=== PATIENT | female | born 1945 | race Caucasian/White ===

== ENCOUNTER 2018-06-12 07:06 | Emergency (ER) | payer MEDICARE, OTHER ==
[2018-06-12 07:18] VITALS: BP 186/52
--- NOTE | 2018-06-12 08:19 | RADIOLOGY REPORT (SQ) ---
EXAM DESCRIPTION: FOOT RIGHT COMPLETE COMPLETED DATE/TIME: 06/12/2018 7:54 am REASON FOR STUDY: pain fall injury pain, dorsal foot COMPARISON: None. NUMBER OF VIEWS: Three views. TECHNIQUE: AP, lateral and oblique radiographic images acquired of the right foot. LIMITATIONS: None. FINDINGS: MINERALIZATION: Normal. BONES: Acute fracture of the tarsal navicular bone is present, best shown on the oblique view with a break in the medial cortex. This is marked with an arrow on the oblique view of the foot. No other definite acute fractures are identified. JOINTS: Osteoarthritis with joint space narrowing and bony spurring at the 1st metatarsophalangeal lonny int. SOFT TISSUES: Diffuse dorsal foot soft tissue swelling. No radiopaque foreign body OTHER: No other significant finding. IMPRESSION: Acute nondisplaced fracture tarsal navicular bone medial edge. TECHNICAL DOCUMENTATION: JOB ID: [id number] [employer]- All Rights Reserved Reading location - IP/workstation name: [email or web address]
[2018-06-12] MEDS ORDERED: OXYCODONE HCL IR 5 MG TABLET PO ONE (08:26)
--- NOTE | 2018-06-12 08:28 | ER Document Report ---
ED Extremity Problem, Lower - General Chief Complaint: Ankle Injury Stated Complaint: FELL/FOOT INJURY Time Seen by Provider: 06/12/18 07:48 Mode of Arrival: Wheelchair Information source: Patient Notes: Patient is a 72-year-old female who presents to the ER today for right foot pain after she was stepping off of a stepladder last night landed hard" on her right foot thinking that she was closer to the floor than she was. Patient did not fall or hit her head. She states that the right foot started hurting a lot at first but then has worsened over the night. She admits to some swelling to the top of the right foot. She states that it hurts so badly she cannot really walk on the foot. TRAVEL OUTSIDE OF THE [place] IN LAST 30 DAYS: No - Related Data Allergies/Adverse Reactions: atenolol Allergy (Verified 06/12/18 07:14) Past Medical History - General Information source: Patient - Social History Smoking Status: Unknown if Ever Smoked Family History: Reviewed & Not Pertinent Patient has suicidal ideation: No Patient has homicidal ideation: No Renal/ Medical History: Denies: Hx Peritoneal Dialysis Review of Systems - Review of Systems Constitutional: No symptoms reported EENT: No symptoms reported Cardiovascular: No symptoms reported Respiratory: No symptoms reported Gastrointestinal: No symptoms reported Genitourinary: No symptoms reported Female Genitourinary: No symptoms reported Musculoskeletal: See HPI Skin: See HPI Hematologic/Lymphatic: No symptoms reported Neurological/Psychological: No symptoms reported Physical Exam - Vital signs Vitals: Temp Pulse Resp BP Pulse Ox 97.8 F 64 16 186/52 H 100 06/12/18 07:17 06/12/18 07:17 06/12/18 07:17 06/12/18 07:17 06/12/18 07:17 - Notes Notes: PHYSICAL EXAMINATION: GENERAL: Well-appearing and in no acute distress. HEAD: Atraumatic, normocephalic. EYES: Pupils equal round and reactive to light, extraocular movements intact, sclera anicteric, conjunctiva are normal. NECK: Normal range of motion, supple without lymphadenopathy LUNGS: CTAB and equal. No wheezes rales or rhonchi. HEART: Regular rate and rhythm without murmurs EXTREMITIES: Tender to dorsal right foot, edema noted to dorsal right foot, no obvious ecchymosis, no erythema, pain with ambulation, otherwise normal range of motion, no pitting edema. No cyanosis. NEUROLOGICAL: Cranial nerves grossly intact. Normal sensory/motor exams. PSYCH: Normal mood, normal affect. SKIN: Warm, Dry, normal turgor, no rashes or lesions noted Course - Re-evaluation Re-evalutation: 06/13/18 08:48 X-ray of the right foot reveals a tarsal navicular fracture, nondisplaced. Patient was placed in a short leg posterior splint and offered crutches. Patient has a walker at home and refused the crutches today stating that she would fall if she tried to use them. Patient given orthopedic follow-up. Patient also given something for pain. - Vital Signs Vital signs: Temp Pulse Resp BP Pulse Ox 97.8 F 64 16 186/52 H 100 06/12/18 07:17 06/12/18 07:17 06/12/18 07:17 06/12/18 07:17 06/12/18 07:17 Discharge - Discharge Clinical Impression: Navicular fracture, foot Qualifiers: Encounter type: initial encounter Fracture type: closed Fracture alignment: nondisplaced Laterality: right Qualified Code(s): S92.254A - Nondisplaced fracture of navicular [scaphoid] of right foot, initial encounter for closed fracture Condition: Stable Disposition: HOME, SELF-CARE Additional Instructions: Return immediately for any new or worsening symptoms. Follow up with orthopedic surgeon, call tomorrow to make followup appointment. Prescriptions: Oxycodone HCl 5 mg PO Q4 PRN #20 tablet PRN Reason: Referrals: ALMAS BAHENA MD [Primary Care Provider] - Follow up as needed RAZIA JOE MD [ACTIVE STAFF] - Follow up as needed
== END 2018-06-12 09:22 | disposition home or self-care (01) ==
LOC: ER 07:06
DX: S92.254A Nondisplaced fracture of navicular [scaphoid] of right foot, initial encounter for closed fracture (principal); X58.XXXA Exposure to other specified factors, initial encounter; Z88.8 Allergy status to other drugs, medicaments and biological substances
CPT/HCPCS: 99283; 73630; 29515; A9270

== ENCOUNTER → 2019-07-08 | Outpatient (CLI) | payer MEDICARE, OTHER ==
[2019-07-08 10:14] LABS: ANION GAP 10 (5-19); BLOOD UREA NITROGEN 30 mg/dL (7-20); CALCIUM 10.2 mg/dL (8.4-10.2); CARBON DIOXIDE 26 mmol/L (22-30); CHLORIDE 97 mmol/L (98-107); GLUCOSE 163 mg/dL (75-110); POTASSIUM 5.4 mmol/L (3.6-5.0)
== END ==
LOC: OD 08:49
PROVIDERS: ATTEND Physician Assistant Medical
DX: E87.1 Hypo-osmolality and hyponatremia (principal)
CPT/HCPCS: 36415; 80048

== ENCOUNTER → 2019-09-23 | Outpatient (CLI) | payer MEDICARE, OTHER ==
[2019-09-23 08:06] LABS: HEMATOCRIT 41.1 % (36.0-47.0); HEMOGLOBIN 14.1 g/dL (12.0-15.5); MEAN CORPUSCULAR HEMOGLOBIN 28.9 pg (27.0-33.4); MEAN CORPUSCULAR HGB CONC 34.3 g/dL (32.0-36.0); MEAN CORPUSCULAR VOLUME 84 fl (80-97); PLATELET COUNT 240 10^3/uL (150-450); RED BLOOD COUNT 4.89 10^6/uL (3.72-5.28); RED CELL DISTRIBUTION WIDTH 12.6 % (11.5-14.0); WHITE BLOOD COUNT 10.1 10^3/uL (4.0-10.5)
[2019-09-23 08:31] LABS: APPEARANCE,URINE CLEAR; BILIRUBIN,URINE NEGATIVE (NEGATIVE); COLOR,URINE YELLOW; GLUCOSE, URINE 50 mg/dL (NEGATIVE); KETONES,URINE NEGATIVE (NEGATIVE); LEUKOCYTE ESTERASE,URINE NEGATIVE (NEGATIVE); NITRITE,URINE NEGATIVE (NEGATIVE); PROTEIN,URINE >=500 mg/dL (NEGATIVE); URINE SPECIFIC GRAVITY 1.014; UROBILINOGEN,URINE NEGATIVE mg/dL (<2.0)
[2019-09-23 08:39] LABS: ANION GAP 12 (5-19); BLOOD UREA NITROGEN 38 mg/dL (7-20); CARBON DIOXIDE 25 mmol/L (22-30); CHLORIDE 101 mmol/L (98-107); GLUCOSE 117 mg/dL (75-110); POTASSIUM 4.7 mmol/L (3.6-5.0)
[2019-09-23 08:52] LABS: CALCIUM 12.1 mg/dL (8.4-10.2)
== END ==
LOC: OD 07:36
PROVIDERS: ATTEND Physician Assistant Medical
DX: I12.9 Hypertensive chronic kidney disease with stage 1 through stage 4 chronic kidney disease, or unspecified chronic kidney disease (principal); N18.3 Chronic kidney disease, stage 3 (moderate); E11.22 Type 2 diabetes mellitus with diabetic chronic kidney disease; R80.9 Proteinuria, unspecified; E83.52 Hypercalcemia
CPT/HCPCS: 36415; 80048; 81001; 83970; 84100; 85027

== ENCOUNTER → 2019-09-28 | Outpatient (CLI) | payer MEDICARE, OTHER | LOC: OD 13:39 | PROVIDERS: ATTEND Physician Assistant Medical | DX: E83.52 Hypercalcemia (principal) | CPT/HCPCS: 36415; 82310 ==

== ENCOUNTER 2020-08-18 20:53 | Inpatient (IN) | payer MEDICARE, OTHER ==
--- NOTE | 2020-08-18 21:37 | ER Document Report ---
ED General - General Chief Complaint: Fall Stated Complaint: FALL WITH GENERALIZED WEAKNESS Time Seen by Provider: 08/18/20 20:59 TRAVEL OUTSIDE OF THE [place] IN LAST 30 DAYS: No - HPI Notes: Patient is a 75-year-old female with a history of DMII, cardiac stents and hypertension who presents status post fall. Patient states she she fell as she was walking into her bedroom because her left leg became weak and gave out. She states that in the past she has had stiffness in her left knee on occasion but reports new onset of pain and weakness to her left leg. She states the pain starts at her left ankle and travels up. Patient denies hitting her head, loss of consciousness and denies any pain currently. Patient also complains of diffuse abdominal pain for the past 3 days. Patient saw her primary care provider 2 days ago and had flu, strep and COVID testing done. Flu and strep were negative, while COVID is still pending. She reports nausea, diarrhea, mild dysuria and shortness of breath, but denies fever, vomiting, chest pain, headache, nasal congestion, and sore throat. Patient is currently on Plavix for her cardiac stents. - Related Data Allergies/Adverse Reactions: atenolol Allergy (Verified 06/12/18 07:14) Past Medical History - General Information source: Patient - Social History Smoking Status: Unknown if Ever Smoked Family History: Reviewed & Not Pertinent Endocrine Medical History: Reports: Hx Diabetes Mellitus Type 2 Renal/ Medical History: Denies: Hx Peritoneal Dialysis Review of Systems - Review of Systems Constitutional: No symptoms reported EENT: No symptoms reported Cardiovascular: No symptoms reported Respiratory: See HPI Gastrointestinal: See HPI Genitourinary: No symptoms reported Female Genitourinary: No symptoms reported Musculoskeletal: See HPI Skin: No symptoms reported Hematologic/Lymphatic: No symptoms reported Neurological/Psychological: See HPI Physical Exam - Vital signs Vitals: Temp 99.2 F 08/18/20 20:54 - Notes Notes: PHYSICAL EXAMINATION: VITALS: Vitals reviewed and within normal limits. GENERAL: Well-appearing, well-nourished and in no acute distress. HEAD: Atraumatic, normocephalic. EYES: Pupils equal round and reactive to light, extraocular movements intact, sclera anicteric, conjunctiva are normal. ENT: nares patent, oropharynx clear without exudates. Moist mucous membranes. NECK: Normal range of motion, supple without lymphadenopathy. LUNGS: Breath sounds clear to auscultation bilaterally and equal. No wheezes rales or rhonchi. HEART: Regular rate and rhythm without murmurs. ABDOMEN: Soft, nontender, normoactive bowel sounds. No guarding, no rebound. No masses appreciated. Mild right CVA tenderness. EXTREMITIES: Normal range of motion, no pitting or edema. No cyanosis. 5/5 strength in bilateral lower extremities. Sensation intact. No tenderness to any joints in the upper and lower extremities. NEUROLOGICAL: No focal neurological deficits. Moves all extremities spontaneously and on command. PSYCH: Normal mood, normal affect. SKIN: Warm, Dry, normal turgor, no rashes or lesions noted. Course - Re-evaluation Re-evalutation: Patient is a 75 y/o female with a hx of DM II and cardiac stents on plavix who presents s/p fall. Patient states her left leg gave out which caused her to fall. Patient denies any head injury or loss of consciousness. Patient also reports diffuse abdominal pain, nausea and diarrhea. She is pending COVID test results. Vital signs within normal limits. On exam, head is atraumatic, nonlabored breath sounds and no abdominal tenderness. 5/5 strength and sensation intact in bilateral lower extremities. WBC on CBC elevated at 16.9 with mild bandemia. Cr elevated at 2.93. UA shows significantly elevated protein and glucose with moderate blood and large leukocyte esterase. WBCs >182 with WBC clumps seen. CT abdomen/pelvis shows perinephric stranding bilaterally. Initial troponin elevated at 0.060 but no change with repeat troponin 3 hours later. High suspicion for bilateral pylonephritis, patient given a dose of rocephin and started on continuous IV fluids. Discussed the results with patient and based on her presentation and workup, I recommend admission. Patient agrees. 08/19/20 03:50 I discussed the patient with Dr. Mehta, hospitalist. He agrees to accept the patient and she will be admitted inpatient to telemetry. - Vital Signs Vital signs: Temp Pulse Resp BP Pulse Ox 98.3 F 20 165/52 H 97 08/19/20 06:27 08/19/20 07:01 08/19/20 07:01 08/19/20 07:01 - Laboratory Result Diagrams: 08/18/20 21:40 08/18/20 21:40 Laboratory results interpreted by me: 08/18/20 08/18/20 08/19/20 21:40 21:40 00:48 WBC 16.9 H RDW 14.2 H Seg Neuts % (Manual) 82 H Band Neutrophils % 1 L Lymphocytes % (Manual) 5 L Abs Neuts (Manual) 14.0 H Abs Monocytes (Manual) 1.7 H Sodium 132.4 L Carbon Dioxide 21 L BUN 49 H Creatinine 2.93 H Est GFR ( Amer) 19 L Est GFR (MDRD) Non-Af 16 L Glucose 310 H Direct Bilirubin 0.6 H Total Protein 6.2 L Albumin 3.2 L Urine Protein >=500 H Urine Glucose (UA) >=500 H Urine Blood MODERATE H Ur Leukocyte Esterase LARGE H - EKG Interpretation by Me Additional EKG results interpreted by me: Sinus rhythm with a rate of 78. QTc 433. Normal axis. No T wave inversions of ST segment changes in consecutive leads. Discharge - Discharge Clinical Impression: Pyelonephritis, Generalized weakness Abdominal pain Qualifiers: Abdominal location: generalized Qualified Code(s): R10.84 - Generalized abdominal pain Fall Qualifiers: Encounter type: initial encounter Qualified Code(s): W19.XXXA - Unspecified fall, initial encounter Condition: Stable Disposition: ADMITTED INPATIENT Admitting Provider: Tyson (Hospitalist) Unit Admitted: Telemetry
[2020-08-18 22:12] LABS: HEMATOCRIT 36.9 % (36.0-47.0); HEMOGLOBIN 12.6 g/dL (12.0-15.5); MEAN CORPUSCULAR HEMOGLOBIN 28.7 pg (27.0-33.4); MEAN CORPUSCULAR HGB CONC 34.2 g/dL (32.0-36.0); MEAN CORPUSCULAR VOLUME 84 fl (80-97); PLATELET COUNT 228 10^3/uL (150-450); RED CELL DISTRIBUTION WIDTH 14.2 % (11.5-14.0); WHITE BLOOD COUNT 16.9 10^3/uL (4.0-10.5)
[2020-08-18 22:20] LABS: ALBUMIN 3.2 g/dL (3.5-5.0); ALKALINE PHOSPHATASE 81 U/L (38-126); ANION GAP 11 (5-19); ASPARTATE AMINO TRANSFERASE 23 U/L (14-36); BILIRUBIN,DIRECT 0.6 mg/dL (0.0-0.4); BLOOD UREA NITROGEN 49 mg/dL (7-20); CARBON DIOXIDE 21 mmol/L (22-30); CHLORIDE 100 mmol/L (98-107); GLUCOSE 310 mg/dL (75-110); POTASSIUM 4.2 mmol/L (3.6-5.0); TOTAL PROTEIN 6.2 g/dL (6.3-8.2)
[2020-08-18] MEDS ORDERED: NORMAL SALINE 1000 ML 1,000 ML IV ONE (22:33)
--- NOTE | 2020-08-18 22:36 | RADIOLOGY REPORT (SQ) ---
AP Portable chest: 08/18/2020 9:35 PM CDT History: 75-year old patient with dyspnea. Comparison: None available Findings: The cardiomediastinal silhouette is enlarged. No pneumothorax is seen. No acute airspace opacities are seen. No discrete pleural effusion is apparent. Atherosclerotic calcifications are seen at the aortic arch. Impression: No acute airspace opacities are seen. The cardiomediastinal silhouette is enlarged.
[2020-08-18 22:50] LABS: ABSOLUTE LYMPHOCYTES# (MANUAL) 1.2 10^3/uL (0.5-4.7); ABSOLUTE MONOCYTES # (MANUAL) 1.7 10^3/uL (0.1-1.4); ANISOCYTOSIS SLIGHT; BAND NEUTROPHILS % (MANUAL) 1 % (3-5); BASOPHILS % (MANUAL) 0 % (0-2); EOSINOPHILS % (MANUAL) 0 % (0-6); LYMPHOCYTES % (MANUAL) 5 % (13-45); MONOCYTES % (MANUAL) 10 % (3-13); PLATELET COMMENT ADEQUATE; SEGMENTED NEUTROPHILS % (MAN) 82 % (42-78); TOTAL CELLS COUNTED 100
[2020-08-19 01:17] LABS: APPEARANCE,URINE CLOUDY; BILIRUBIN,URINE NEGATIVE (NEGATIVE); COLOR,URINE YELLOW; GLUCOSE, URINE >=500 mg/dL (NEGATIVE); KETONES,URINE NEGATIVE (NEGATIVE); LEUKOCYTE ESTERASE,URINE LARGE (NEGATIVE); NITRITE,URINE NEGATIVE (NEGATIVE); PROTEIN,URINE >=500 mg/dL (NEGATIVE); UROBILINOGEN,URINE NEGATIVE mg/dL (<2.0)
[2020-08-19] MEDS ORDERED: CEFTRIAXONE 1 GM/D5W RTU 1 GM/50 ML RTUPB IV ONE (01:31)
--- NOTE | 2020-08-19 02:00 | RADIOLOGY REPORT (SQ) ---
CT abdomen and pelvis without contrast on 08/19/2020 at 1:38 AM CLINICAL INDICATION: Generalized abdominal pain TECHNIQUE: Multiple axial images are obtained throughout the abdomen and pelvis without the administration of contrast. This exam was performed according to our departmental dose-optimization program, which includes automated exposure control, adjustment of the mA and/or kV according to patient size and/or use of iterative reconstruction technique. Total DLP is 641.81 mGy*cm. COMPARISON: None FINDINGS: Abdomen: Coronary artery calcifications and other vascular calcifications are noted. There is mild bibasilar atelectasis and/or scarring. Tiny calcification in the right kidney could be vascular but cannot exclude a tiny nonobstructing right renal stone. There are no ureteral stones and no hydronephrosis. Nonspecific bilateral perinephric stranding is likely incidental but consider correlation with urinalysis to exclude infection. The patient may be status post a partial left hepatic resection and please correlate with surgical history. The patient appears to be status post cholecystectomy. The unenhanced solid abdominal organs are otherwise unremarkable. There is no abdominal adenopathy. There is no free fluid or free air within the abdomen. There is a tiny umbilical hernia containing only fat. The abdominal portion of the GI tract is unremarkable. Pelvis: The patient is status post hysterectomy. No free fluid is noted in the pelvis. There is no pelvic adenopathy. The appendix is not definitely visualized but no pericecal inflammatory changes are noted. Pelvic portion of the GI tract is unremarkable. Degenerative changes are noted in the spine. There is minimal grade 1 spondylolisthesis at L3-4 and L4-5 secondary to degenerative facet disease. No acute bony normality is noted. IMPRESSION: 1. Nonspecific bilateral perinephric stranding likely incidental but consider correlation with urinalysis to exclude infection. 2. Otherwise essentially unremarkable unenhanced exam.
[2020-08-19] MEDS: NORMAL SALINE 1000 ML 1,000 ML IV PRN ×2 (04:20→20:15)
[2020-08-19] MEDS ORDERED: ASPIRIN 81 MG TABLET, CHEWABLE PO ONE (05:45)
[2020-08-19] MEDS ORDERED: MAGNESIUM HYDROXIDE SUSP 30 ML UDCUP PO PRN (05:50)
[2020-08-19] MEDS ORDERED: TEMAZEPAM 7.5 MG CAPSULE PO PRN (05:50)
[2020-08-19] MEDS ORDERED: ENOXAPARIN SODIUM INJ 80 MG/0.8 ML DISP.SYRIN SUBCUT ONE (06:00)
--- NOTE | 2020-08-19 06:00 | PDOC H&P ---
History of Present Illness Admission Date/PCP: 08/19/20 04:02 KERRI BURRIS PA-C History of Present Illness: JAEL ALVARES is a 75 year old female past medical history of CAD status post kevin nt placement, diabetes, hypertension, tenting to ED complaining of generalized weakness, nausea, diarrhea, dysuria, abdominal pain, back pain, patient also stating that because of her weakness legs gave out and ultimately fell, denies any loss of consciousness or head trauma, patient was seen by her PCP about 2 days ago, was tested for COVID and strep, and was discharged home. Patient was noted to have leukocytosis with UA positive for leukocyte esterase and CT abdomen positive for bilateral stranding of the kidneys likely pyelonephritis. Patient denies any chest pain, shortness of breath, fever, chills, palpitation, lightheadedness. Hospital was consulted for admission. Past Medical History Endocrine Medical History: Reports: Diabetes Mellitus Type 2 Social History Smoking Status: Unknown if Ever Smoked Electronic Cigarette use?: No Family History Family History: Reviewed & Not Pertinent Parental Family History Reviewed: Yes Children Family History Reviewed: Yes Sibling(s) Family History Reviewed.: Yes Medication/Allergy Home Medications: Oxycodone HCl 5 mg PO Q4 PRN #20 tablet 06/12/18 Allergies/Adverse Reactions: atenolol Allergy (Verified 06/12/18 07:14) Review of Systems Review of Systems: as per hpi Physical Exam Vital Signs: Temp Pulse Resp BP Pulse Ox 97.9 F 22 H 158/48 H 96 08/19/20 02:01 08/19/20 03:01 08/19/20 03:01 08/19/20 03:01 Intake & Output 08/17/20 08/18/20 08/19/20 06:59 06:59 06:59 Intake Total 1050 Balance 1050 Weight 78.471 kg General appearance: PRESENT: mild distress, obese Head exam: PRESENT: atraumatic, normocephalic Respiratory exam: PRESENT: clear to auscultation [place]. ABSENT: rales, rhonchi, wheezes Cardiovascular exam: PRESENT: RRR, tachycardia. ABSENT: diastolic murmur, rubs, systolic murmur GI/Abdominal exam: PRESENT: normal bowel sounds, soft, tenderness - Bilateral CVA tenderness. ABSENT: distended, guarding, mass, organolmegaly, rebound Neurological exam: PRESENT: alert, awake, oriented to person, oriented to place, oriented to time, oriented to situation, CN II-XII grossly intact. ABSENT: motor sensory deficit Results Laboratory Results: 08/18/20 21:40 08/18/20 21:40 08/18/20 08/18/20 08/19/20 21:40 21:40 00:48 WBC 16.9 H RBC 4.40 Hgb 12.6 Hct 36.9 MCV 84 MCH 28.7 MCHC 34.2 RDW 14.2 H Plt Count 228 Seg Neutrophils % Not Reportable Sodium 132.4 L Potassium 4.2 Chloride 100 Carbon Dioxide 21 L Anion Gap 11 BUN 49 H Creatinine 2.93 H Est GFR ( Amer) 19 L Glucose 310 H Calcium 9.0 Total Bilirubin 1.0 AST 23 Alkaline Phosphatase 81 Total Protein 6.2 L Albumin 3.2 L Lipase 34.0 Urine Color YELLOW Urine Appearance CLOUDY Urine pH 5.0 Ur Specific Mcclave 1.010 Urine Protein >=500 H Urine Glucose (UA) >=500 H Urine Ketones NEGATIVE Urine Blood MODERATE H Urine Nitrite NEGATIVE Ur Leukocyte Esterase LARGE H Urine WBC (Auto) >182 Urine RBC (Auto) 2 08/18/20 08/19/20 21:40 00:48 Troponin I 0.060 0.060 Impressions: Abdomen/Pelvis CT 08/18/20 22:33 IMPRESSION: 1. Nonspecific bilateral perinephric stranding likely incidental but consider correlation with urinalysis to exclude infection. 2. Otherwise essentially unremarkable unenhanced exam. Assessment and Plan - Diagnosis (1) Pyelonephritis Is this a current diagnosis for this admission?: Yes Plan: Presented with leukocytosis, abdominal pain, bilateral CVA. Hematuria on UA. CT abdomen positive for bilateral fat stranding of the kidney suspicion for pyelonephritis. Denies any previous history of pyelonephritis, urogenital instrumentation, any urogenital anomalies, any nephrolithiasis. Empiric broad-spectrum IV antibiotics, urine culture, blood culture. Follow-up blood culture and urine culture. Adjust antibiotics guided by culture finding. (2) Diabetes Qualifiers: Diabetes mellitus type: type 2 Chronic kidney disease stage: stage 3 (moderate) Is this a current diagnosis for this admission?: Yes Plan: Diabetic diet, sliding scale insulin, basal insulin, prandial insulin, Accu- Chek, hypoglycemia protocol. Resume home meds upon discharge. Outpatient PCP follow-up. (3) Hypertension Is this a current diagnosis for this admission?: Yes Plan: Uncontrolled, clinically appears dry. Resume home meds, adjust meds as needed, PRN IV hydralazine. (4) COVID-19 Is this a current diagnosis for this admission?: Yes Plan: Patient does not have any suspicion for COVID however due to the fact that patient was having nausea and vomiting and generalized weakness patient PCP had tested her for COVID-19 2 days ago. Pending results. Admit IMC, droplet and contact precautions, therapeutic Lovenox, empiric IV antibiotics. (5) Fall Qualifiers: Encounter type: initial encounter Qualified Code(s): W19.XXXA - Unspecified fall, initial encounter Is this a current diagnosis for this admission?: Yes Plan: Mechanical fall, denies any loss of consciousness, palpitation, lightheadedness, or head trauma. Monitor for fall, supportive measures. PT consultation. (6) Elevated troponin Is this a current diagnosis for this admission?: Yes Plan: History of CAD status post stent placement. Denies any chest pain. Mildly elevated troponin, no acute EKG change. Likely due to demand mismatch in the setting of worsening renal function. Admit telemetry, DAPT, DINA, statins, trend troponins, PRN nitroglycerin, PRN morphine, consult cardiology. (7) CAD (coronary artery disease) Qualifiers: Coronary Disease-Associated Artery/Lesion type: [place] artery Is this a current diagnosis for this admission?: Yes Plan: Denies any anginal stress, mildly elevated troponins, status post stent placement. Resume home meds. Outpatient PCP and cardiology follow-up. - Time Time Spent with patient: 35 or more minutes Medications reviewed and adjusted accordingly: Yes Anticipated Discharge Disposition: Home, Self Care Anticipated Discharge Timeframe: within 72 hours
[2020-08-19] MEDS ORDERED: LISINOPRIL 5 MG TABLET PO SCH (10:00)
[2020-08-19] MEDS ORDERED: ENOXAPARIN SODIUM INJ 80 MG/0.8 ML DISP.SYRIN SUBCUT SCH (10:00)
[2020-08-19] MEDS: CLOPIDOGREL BISULFATE 75 MG TABLET PO SCH (10:45)
[2020-08-19] MEDS: ENOXAPARIN SODIUM INJ 80 MG/0.8 ML DISP.SYRIN SUBCUT SCH (10:45)
[2020-08-19] MEDS: DOCUSATE SODIUM 100 MG CAPSULE PO SCH ×2 (10:45→17:52)
[2020-08-19] MEDS: FAMOTIDINE INJ/PF 20 MG/2 ML SDV IV SCH (10:46)
[2020-08-19] MEDS: CEFEPIME 1 GM/D5W RTU 1 GM/50 ML RTUPB IV SCH ×2 (10:46→22:00)
[2020-08-19] MEDS: PROMETHAZINE HCL INJ 25 MG/1 ML VIAL IV PRN (14:14)
[2020-08-19] MEDS ORDERED: DEXTROSE 50%-WATER 25 GM/50 ML DISP.SYRIN IV PRN ×2 (17:15)
[2020-08-19] MEDS ORDERED: DEXTROSE 40% GEL 15 GM TUBE PO PRN ×2 (17:15)
[2020-08-19] MEDS ORDERED: GLUCAGON,HUMAN RECOMB 1 MG INJ IM PRN (17:15)
--- NOTE | 2020-08-19 17:43 | PDOC PROGRESS REPORT ---
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 Patient was seen on morning rounds. She is found resting in bed, comfortably, on room air. She reports fatigue, malaise, poor appetite, and continued urinary frequency with occasional dysuria. She denies fever, chills, chest pain, palpitations, dyspnea, abd pain, vomiting and diarrhea. She has no questions or concerns at this time. No concerns per nursing. Reason For Visit: PYELONEPHRITIS,NAUSEA,VOMITING,ELEVATED TROPS Physical Exam Vital Signs: Temp Pulse Resp BP Pulse Ox 98.4 F 87 16 152/46 H 97 08/19/20 12:16 08/19/20 14:00 08/19/20 12:16 08/19/20 12:16 08/19/20 12:16 Intake & Output 08/18/20 08/19/20 08/20/20 06:59 06:59 06:59 Intake Total 1050 50 Balance 1050 50 Weight 78.471 kg 78.2 kg General appearance: PRESENT: no acute distress, disheveled - acutely ill appearing, obese, well-developed, well-nourished Head exam: PRESENT: atraumatic, normocephalic Eye exam: PRESENT: conjunctiva pink, EOMI, PERRLA. ABSENT: scleral icterus Mouth exam: PRESENT: dry mucosa, tongue midline Respiratory exam: PRESENT: clear to auscultation [place]avan, symmetrical, unlabored. ABSENT: rales, rhonchi, wheezes Cardiovascular exam: PRESENT: RRR. ABSENT: diastolic murmur, rubs, systolic murmur Vascular exam: PRESENT: normal capillary refill GI/Abdominal exam: PRESENT: normal bowel sounds, soft. ABSENT: distended, guarding, mass, organolmegaly, rebound, tenderness Rectal exam: PRESENT: deferred Extremities exam: PRESENT: full ROM. ABSENT: calf tenderness, clubbing, pedal edema Neurological exam: PRESENT: alert, awake, oriented to person, oriented to place, oriented to time, oriented to situation, CN II-XII grossly intact. ABSENT: motor sensory deficit Psychiatric exam: PRESENT: appropriate affect, normal mood. ABSENT: homicidal i deation, suicidal ideation Skin exam: PRESENT: dry, intact, warm. ABSENT: cyanosis, rash Results Laboratory Results: 08/18/20 21:40 08/18/20 21:40 08/18/20 08/18/20 08/19/20 21:40 21:40 00:48 WBC 16.9 H RBC 4.40 Hgb 12.6 Hct 36.9 MCV 84 MCH 28.7 MCHC 34.2 RDW 14.2 H Plt Count 228 Seg Neutrophils % Not Reportable Sodium 132.4 L Potassium 4.2 Chloride 100 Carbon Dioxide 21 L Anion Gap 11 BUN 49 H Creatinine 2.93 H Est GFR ( Amer) 19 L Glucose 310 H Calcium 9.0 Total Bilirubin 1.0 AST 23 Alkaline Phosphatase 81 Total Protein 6.2 L Albumin 3.2 L Lipase 34.0 Urine Color YELLOW Urine Appearance CLOUDY Urine pH 5.0 Ur Specific [place] 1.010 Urine Protein >=500 H Urine Glucose (UA) >=500 H Urine Ketones NEGATIVE Urine Blood MODERATE H Urine Nitrite NEGATIVE Ur Leukocyte Esterase LARGE H Urine WBC (Auto) >182 Urine RBC (Auto) 2 08/18/20 08/19/20 08/19/20 21:40 00:48 06:15 Troponin I 0.060 0.060 0.039 Impressions: Abdomen/Pelvis CT 08/18/20 22:33 IMPRESSION: 1. Nonspecific bilateral perinephric stranding likely incidental but consider correlation with urinalysis to exclude infection. 2. Otherwise essentially unremarkable unenhanced exam. Assessment and Plan - Diagnosis (1) Pyelonephritis Is this a current diagnosis for this admission?: Yes Plan: Presented with leukocytosis, abdominal pain, bilateral CVA. Hematuria on UA. CT abdomen positive for bilateral fat stranding of the kidney suspicion for pyelonephritis. Denies any previous history of pyelonephritis, urogenital instrumentation, any urogenital anomalies, any nephrolithiasis. Blood cultures show E. coli Urine culture pending Empiric broad-spectrum IV antibiotics Adjust antibiotics guided by culture finding. (2) Bacteremia due to Escherichia coli Is this a current diagnosis for this admission?: Yes Plan: Preliminary blood culture shows E. Coli Urine Culture pending; patient admitted w/ Pyelonephritis as likely source Continue IV Cefepime. Repeat cultures in 48 hrs. (3) Suspected COVID-19 virus infection Is this a current diagnosis for this admission?: Yes Plan: Patient was tested at her PCPs office 2 days ago. Spoke with office staff; test results still pending. It is likely that her fatigue, malaise, and fever are related to development of UTI/pyelonephritis and not COVID. Appropriate isolation precautions pending test results. (4) Diabetes Qualifiers: Diabetes mellitus type: type 2 Chronic kidney disease stage: stage 3 (moderate) Is this a current diagnosis for this admission?: Yes Plan: We will check A1c with a.m. lab work. Resume 50% of patient's home dose Lantus; 40 units nightly. Patient is placed on a consistent carb diet. Accu-Cheks before meals and at bedtime with Humalog for sliding scale coverage. Hypoglycemia protocol in place. (5) Elevated troponin Is this a current diagnosis for this admission?: Yes Plan: History of CAD status post stent placement. Denies any chest pain. Mildly elevated troponin; trending down and no longer following. No acute EKG change. Admit telemetry, DAPT, DINA, statins Discussed with Dr. Chambers; likely due to demand mismatch in the setting of worsening renal function. Stable/appropriate to delay cardiac consultation at this time; will re-consult as needed. (6) Fall Qualifiers: Encounter type: initial encounter Qualified Code(s): W19.XXXA - Unspecified fall, initial encounter Is this a current diagnosis for this admission?: Yes Plan: Mechanical fall, denies any loss of consciousness, palpitation, lightheadedness, or head trauma. Monitor for fall, supportive measures. PT consultation. (7) Hypertension Is this a current diagnosis for this admission?: Yes Plan: Uncontrolled, clinically appears dry. Have resumed home regimen of amlodipine, telmisartan, and metoprolol. PRN IV hydralazine. (8) CAD (coronary artery disease) Qualifiers: Coronary Disease-Associated Artery/Lesion type: [place] artery Is this a current diagnosis for this admission?: Yes Plan: Denies any anginal stress, mildly elevated troponins, status post stent placement. Resume home meds. Outpatient PCP and cardiology follow-up. - Time Time Spent with patient: 25-34 minutes Medications reviewed and adjusted accordingly: Yes Anticipated Discharge Disposition: Home, Self Care Anticipated Discharge Timeframe: >72 hrs
[2020-08-19] MEDS: ACETAMINOPHEN 325 MG TABLET PO PRN (20:20)
--- NOTE | 2020-08-19 21:28 | EKG REPORT ---
SEVERITY:- NORMAL ECG - SINUS RHYTHM : Confirmed by: Niya Rod MD 19-Aug-2020 21:28:00
[2020-08-19] MEDS ORDERED: METOPROLOL TARTRATE 25 MG TABLET PO SCH (22:00)
[2020-08-19] MEDS ORDERED: (PENDING PHARMACY ID) (Simvastatin [Simvastatin] 20 MG) PO SCH (22:00)
[2020-08-19] MEDS: SIMVASTATIN 10 MG TABLET PO SCH (22:02)
[2020-08-19] MEDS: EZETIMIBE 10 MG TABLET PO SCH (22:02)
[2020-08-19] MEDS: ATORVASTATIN CALCIUM 40 MG TABLET PO SCH (22:03)
[2020-08-19] MEDS: INSULIN LISPRO 100 UNIT/ML 3 ML VIAL SUBCUT SCH (22:11)
[2020-08-20] MEDS: PROMETHAZINE HCL INJ 25 MG/1 ML VIAL IV PRN ×2 (00:48→08:40)
[2020-08-20 08:35] LABS: HEMATOCRIT 33.7 % (36.0-47.0); HEMOGLOBIN 11.6 g/dL (12.0-15.5); MEAN CORPUSCULAR HEMOGLOBIN 28.8 pg (27.0-33.4); MEAN CORPUSCULAR HGB CONC 34.3 g/dL (32.0-36.0); MEAN CORPUSCULAR VOLUME 84 fl (80-97); PLATELET COUNT 237 10^3/uL (150-450); RED BLOOD COUNT 4.02 10^6/uL (3.72-5.28); WHITE BLOOD COUNT 18.6 10^3/uL (4.0-10.5)
[2020-08-20] MEDS: INSULIN LISPRO 100 UNIT/ML 3 ML VIAL SUBCUT SCH ×4 (08:39→22:35)
[2020-08-20] MEDS: HYDRALAZINE HCL INJ/PF 20 MG/1 ML SDV IV PRN (08:41)
[2020-08-20 08:51] LABS: INTERNATIONAL RATION (INR) 1.07; PROTHROMBIN TIME 14.1 SEC (11.4-15.4)
[2020-08-20 08:56] LABS: ALBUMIN 2.7 g/dL (3.5-5.0); ALKALINE PHOSPHATASE 74 U/L (38-126); ANION GAP 9 (5-19); ASPARTATE AMINO TRANSFERASE 22 U/L (14-36); BILIRUBIN,DIRECT 0.4 mg/dL (0.0-0.4); BILIRUBIN,TOTAL 0.7 mg/dL (0.2-1.3); BLOOD UREA NITROGEN 46 mg/dL (7-20); CALCIUM 8.2 mg/dL (8.4-10.2); CARBON DIOXIDE 19 mmol/L (22-30); CHLORIDE 107 mmol/L (98-107); GLUCOSE 259 mg/dL (75-110); POTASSIUM 4.3 mmol/L (3.6-5.0); TOTAL PROTEIN 5.6 g/dL (6.3-8.2)
[2020-08-20] MEDS ORDERED: (PENDING PHARMACY ID) (Telmisartan [Telmisartan] 80 MG) PO SCH (10:00)
[2020-08-20] MEDS ORDERED: INSULIN GLARGINE,HUM.REC.ANLOG 1,000 UNIT/10 ML VIAL SUBCUT SCH (10:00)
[2020-08-20] MEDS ORDERED: LOSARTAN POTASSIUM 25 MG TABLET PO SCH (10:00)
[2020-08-20] MEDS ORDERED: [UNRECOGNIZED DRUG - OTHER] SQ SCH (10:00)
[2020-08-20] MEDS ORDERED: INSULIN DETEMIR 40 UNIT SQ SCH (10:00)
[2020-08-20] MEDS: IPRATROPIUM/ALBUTEROL 0.5-2.5 MG/3 ML AMPUL NEB PRN (10:19)
[2020-08-20] MEDS: ASPIRIN 81 MG TABLET, CHEWABLE PO SCH (11:04)
[2020-08-20] MEDS: CLOPIDOGREL BISULFATE 75 MG TABLET PO SCH (11:06)
[2020-08-20] MEDS: AMLODIPINE BESYLATE 10 MG TABLET PO SCH (11:06)
[2020-08-20] MEDS: DOCUSATE SODIUM 100 MG CAPSULE PO SCH ×2 (11:07→20:42)
[2020-08-20] MEDS: ENOXAPARIN SODIUM INJ 80 MG/0.8 ML DISP.SYRIN SUBCUT SCH (11:07)
[2020-08-20] MEDS: FAMOTIDINE INJ/PF 20 MG/2 ML SDV IV SCH (11:07)
[2020-08-20] MEDS: CEFEPIME 1 GM/D5W RTU 1 GM/50 ML RTUPB IV SCH (11:08)
[2020-08-20] MEDS: NORMAL SALINE 1000 ML 1,000 ML IV PRN (11:12)
--- NOTE | 2020-08-20 12:28 | PDOC PROGRESS REPORT ---
Subjective Progress Note for:: 08/20/20 Subjective:: JAEL ALVARES is a 75 year old female past medical history of CAD status post stent placement, diabetes, hypertension, who was admitted 08/19/20 for pyelonephritis. Patient was seen on morning rounds. She is found resting in bed, on room air. She reports subjective fever/chills, fatigue, malaise, poor appetite, and continued urinary frequency with occasional dysuria. Now with increased abdominal discomfort, nausea, and vomiting. She denies chest pain, palpitations, dyspnea, and diarrhea. She has no questions or concerns at this time; does appear acutely ill and worsened as compared to yesterday. No concerns per nursing. Reason For Visit: PYELONEPHRITIS,NAUSEA,VOMITING,ELEVATED TROPS Physical Exam Vital Signs: Temp Pulse Resp BP Pulse Ox 97.9 F 84 16 173/51 H 93 08/20/20 08:27 08/20/20 10:19 08/20/20 10:19 08/20/20 08:27 08/20/20 10:19 Intake & Output 08/19/20 08/20/20 08/21/20 06:59 06:59 06:59 Intake Total 1050 2100 Balance 1050 2100 Weight 78.471 kg 80.3 kg General appearance: PRESENT: no acute distress, cooperative, disheveled - acutely ill appearing, well-developed, well-nourished - overweight Head exam: PRESENT: atraumatic, normocephalic Eye exam: PRESENT: conjunctiva pink, EOMI, PERRLA. ABSENT: scleral icterus Mouth exam: PRESENT: moist, tongue midline Respiratory exam: PRESENT: clear to auscultation [place], symmetrical, unlabored, other - room air. ABSENT: rales, rhonchi, wheezes Cardiovascular exam: PRESENT: RRR. ABSENT: diastolic murmur, rubs, systolic murmur Vascular exam: PRESENT: normal capillary refill GI/Abdominal exam: PRESENT: normal bowel sounds, soft, tenderness - vague, generalized. ABSENT: distended, guarding, mass, organolmegaly, rebound Rectal exam: PRESENT: deferred Extremities exam: PRESENT: full ROM. ABSENT: calf tenderness, clubbing, pedal edema Neurological exam: PRESENT: alert, awake, oriented to person, oriented to place, oriented to time, oriented to situation, CN II-XII grossly intact. ABSENT: motor sensory deficit Psychiatric exam: PRESENT: appropriate affect, normal mood. ABSENT: homicidal ideation, suicidal ideation Skin exam: PRESENT: dry, intact, warm. ABSENT: cyanosis, rash Results Laboratory Results: 08/20/20 07:30 08/20/20 07:30 08/20/20 08/20/20 07:30 07:30 WBC 18.6 H RBC 4.02 Hgb 11.6 L Hct 33.7 L MCV 84 MCH 28.8 MCHC 34.3 RDW 14.0 Plt Count 237 Sodium 134.8 L Potassium 4.3 Chloride 107 Carbon Dioxide 19 L Anion Gap 9 BUN 46 H Creatinine 2.07 H Est GFR ( Amer) 28 L Glucose 259 H Calcium 8.2 L Magnesium 2.1 Total Bilirubin 0.7 AST 22 Alkaline Phosphatase 74 Total Protein 5.6 L Albumin 2.7 L 08/19/20 02:35 Blood Blood Culture (PCR) - Final Escherichia Coli 08/18/20 08/19/20 08/19/20 21:40 00:48 06:15 Troponin I 0.060 0.060 0.039 08/19/20 08/20/20 17:45 00:58 Troponin I 0.036 0.030 Impressions: Abdomen/Pelvis CT 08/18/20 22:33 IMPRESSION: 1. Nonspecific bilateral perinephric stranding likely incidental but consider correlation with urinalysis to exclude infection. 2. Otherwise essentially unremarkable unenhanced exam. Assessment and Plan - Diagnosis (1) Pyelonephritis Is this a current diagnosis for this admission?: Yes Plan: Presented with leukocytosis, abdominal pain, bilateral CVA. Hematuria on UA. CT abdomen positive for bilateral fat stranding of the kidney suspicion for pyelonephritis. Denies any previous history of pyelonephritis, urogenital instrumentation, any urogenital anomalies, any nephrolithiasis. Blood cultures show E. coli; sensitivity pending Urine culture shows gram negative rods No previous cultures for reference Given worsened clinical appearance and increased leukocytosis today, will escalate antibiotics. Received IV Cefepime x1 day. Start Meropenem Continue IV fluids Analgesics and antiemetics as needed. (2) Bacteremia due to Escherichia coli Is this a current diagnosis for this admission?: Yes Plan: Preliminary blood culture shows E. Coli Urine Culture gram negative rods. Repeat BCx in am. Start Meropenem as mentioned above. (3) Diabetes Qualifiers: Diabetes mellitus type: type 2 Chronic kidney disease stage: stage 3 (moderate) Is this a current diagnosis for this admission?: Yes Plan: We will check A1c with a.m. lab work. Increase to Lantus 60 units nightly. (Takes 70 units at home) Patient is placed on a consistent carb diet. Accu-Cheks before meals and at bedtime with Humalog for sliding scale coverage. Hypoglycemia protocol in place. (4) Hypertension Is this a current diagnosis for this admission?: Yes Plan: Intermittently elevated Continue home regimen of amlodipine, telmisartan Increase metoprolol today. PRN IV hydralazine. (5) Elevated troponin Is this a current diagnosis for this admission?: Yes Plan: History of CAD status post stent placement. Denies any chest pain. Mildly elevated troponin; trending down and no longer following. No acute EKG change. Admit telemetry, DAPT, DINA, statins Discussed with Dr. Chambers; likely due to demand mismatch in the setting of worsening renal function. Stable/appropriate to delay cardiac consultation at this time; will re-consult as needed. (6) Fall Qualifiers: Encounter type: initial encounter Qualified Code(s): W19.XXXA - Unspecified fall, initial encounter Is this a current diagnosis for this admission?: Yes Plan: Mechanical fall, denies any loss of consciousness, palpitation, lightheadedness, or head trauma. Monitor for fall, supportive measures. PT consultation. (7) CAD (coronary artery disease) Qualifiers: Coronary Disease-Associated Artery/Lesion type: [place] artery Is this a current diagnosis for this admission?: Yes Plan: Denies any anginal stress, mildly elevated troponins, status post stent placement. Resume home meds. Outpatient PCP and cardiology follow-up. (8) Suspected COVID-19 virus infection Is this a current diagnosis for this admission?: Yes Plan: RULED OUT COVID test is NEGATIVE. No suspicion for false negative; patient's symptoms clearly explained by pyelonephritis/bacteremia. (9) [id number]-hzmjymr kidney injury Qualifiers: Acute renal failure type: unspecified Chronic kidney disease stage: stage 4 (severe) Qualified Code(s): N17.9 - Acute kidney failure, unspecified; N18.4 - Chronic kidney disease, stage 4 (severe) Is this a current diagnosis for this admission?: Yes Plan: Acute worsening is significantly improved; likely at baseline. Likely prerenal r/t dehydration, acute infection, hypotension, sepsis. 08/2019: eGFR 24, CR 1.99 Admitted w/ eGFR 16 and Cr 2.93; now eGFR 23 and Cr 2.07 Received appropriate IVF resuscitation. Continue treatment of pyelonephritis as above. Avoid nephrotoxic medications as able. Follow chemistries. - Time Time Spent with patient: 25-34 minutes Medications reviewed and adjusted accordingly: Yes Anticipated Discharge Disposition: Home, Self Care Anticipated Discharge Timeframe: >72 hrs
[2020-08-20] MEDS: ONDANSETRON HCL INJ/PF 4 MG/2 ML SDV IV PRN (12:43)
[2020-08-20] MEDS: MEROPENEM 1 GM in NORMAL SALINE 50 ML IV SCH ×2 (15:05→21:53)
[2020-08-20] MEDS: EZETIMIBE 10 MG TABLET PO SCH (21:54)
[2020-08-20] MEDS: ATORVASTATIN CALCIUM 40 MG TABLET PO SCH (21:54)
[2020-08-20] MEDS: METOPROLOL TARTRATE 25 MG TABLET PO SCH (21:54)
[2020-08-20] MEDS: SIMVASTATIN 10 MG TABLET PO SCH (21:54)
[2020-08-20] MEDS: MORPHINE SULFATE 10 MG/ML INJ IV PRN (23:14)
[2020-08-21] MEDS: NORMAL SALINE 1000 ML 1,000 ML IV PRN ×2 (01:00→13:36)
[2020-08-21] MEDS: MEROPENEM 1 GM in NORMAL SALINE 50 ML IV SCH ×3 (05:21→22:14)
[2020-08-21 06:10] LABS: HEMATOCRIT 33.7 % (36.0-47.0); HEMOGLOBIN 11.6 g/dL (12.0-15.5); MEAN CORPUSCULAR HEMOGLOBIN 28.7 pg (27.0-33.4); MEAN CORPUSCULAR HGB CONC 34.5 g/dL (32.0-36.0); MEAN CORPUSCULAR VOLUME 83 fl (80-97); PLATELET COUNT 258 10^3/uL (150-450); RED BLOOD COUNT 4.05 10^6/uL (3.72-5.28); WHITE BLOOD COUNT 17.2 10^3/uL (4.0-10.5)
[2020-08-21 06:27] LABS: ANION GAP 11 (5-19); BLOOD UREA NITROGEN 36 mg/dL (7-20); CALCIUM 8.2 mg/dL (8.4-10.2); CARBON DIOXIDE 18 mmol/L (22-30); CHLORIDE 110 mmol/L (98-107); GLUCOSE 169 mg/dL (75-110); POTASSIUM 4.1 mmol/L (3.6-5.0)
[2020-08-21] MEDS: INSULIN LISPRO 100 UNIT/ML 3 ML VIAL SUBCUT SCH ×4 (08:35→22:16)
[2020-08-21] MEDS: METOPROLOL TARTRATE 25 MG TABLET PO SCH ×2 (09:17→22:15)
[2020-08-21] MEDS: DOCUSATE SODIUM 100 MG CAPSULE PO SCH ×2 (09:17→17:33)
[2020-08-21] MEDS: AMLODIPINE BESYLATE 10 MG TABLET PO SCH (09:18)
[2020-08-21] MEDS: FAMOTIDINE INJ/PF 20 MG/2 ML SDV IV SCH (09:18)
[2020-08-21] MEDS: ASPIRIN 81 MG TABLET, CHEWABLE PO SCH (09:18)
[2020-08-21] MEDS: ENOXAPARIN SODIUM INJ 80 MG/0.8 ML DISP.SYRIN SUBCUT SCH (09:19)
[2020-08-21] MEDS: CLOPIDOGREL BISULFATE 75 MG TABLET PO SCH (09:19)
[2020-08-21] MEDS: LOSARTAN POTASSIUM 50 MG TABLET PO SCH (09:19)
[2020-08-21] MEDS: IPRATROPIUM/ALBUTEROL 0.5-2.5 MG/3 ML AMPUL NEB PRN (09:23)
[2020-08-21] MEDS ORDERED: INSULIN GLARGINE,HUM.REC.ANLOG 1,000 UNIT/10 ML VIAL (PYX) SUBCUT ONE (11:16)
[2020-08-21] MEDS: INSULIN GLARGINE,HUM.REC.ANLOG 1,000 UNIT/10 ML VIAL SUBCUT SCH (11:19)
[2020-08-21] MEDS: HYDRALAZINE HCL INJ/PF 20 MG/1 ML SDV IV PRN (16:21)
--- NOTE | 2020-08-21 17:05 | PDOC PROGRESS REPORT ---
Subjective Progress Note for:: 08/21/20 Subjective:: JAEL ALVARES is a 75 year old female past medical history of CAD status post stent placement, diabetes, hypertension, who was admitted 08/19/20 for pyelonephritis. Patient was seen on morning rounds. She is found sitting up to the recliner, comfortably, on room air. She reports feeling much better today. She reports continued fatigue, poor appetite, and mild nausea, though without the body aches, CVA tenderness, or vomiting she experienced yesterday. She denies fevers, chest pain, palpitations, dyspnea, abdominal pain, and diarrhea. She has no questions or concerns at this time. No concerns per nursing. Reason For Visit: PYELONEPHRITIS,NAUSEA,VOMITING,ELEVATED TROPS Physical Exam Vital Signs: Temp Pulse Resp BP Pulse Ox 98.3 F 66 19 157/45 H 93 08/21/20 16:00 08/21/20 16:00 08/21/20 16:00 08/21/20 16:00 08/21/20 16:00 Intake & Output 08/20/20 08/21/20 08/22/20 06:59 06:59 06:59 Intake Total 2099 1900 185 Balance 2099 1899 1855 Weight 80.3 kg 81.5 kg General appearance: PRESENT: no acute distress, well-developed, well-nourished Head exam: PRESENT: atraumatic, normocephalic Eye exam: PRESENT: conjunctiva pink, EOMI, PERRLA. ABSENT: scleral icterus Mouth exam: PRESENT: moist, tongue midline Respiratory exam: PRESENT: clear to auscultation [place], symmetrical, unlabored. ABSENT: rales, rhonchi, wheezes Cardiovascular exam: PRESENT: RRR, +S1, +S2. ABSENT: diastolic murmur, rubs, systolic murmur Vascular exam: PRESENT: normal capillary refill GI/Abdominal exam: PRESENT: normal bowel sounds, soft. ABSENT: distended, guarding, mass, organolmegaly, rebound, tenderness Rectal exam: PRESENT: deferred Extremities exam: PRESENT: full ROM. ABSENT: calf tenderness, clubbing, pedal edema Musculoskeletal exam: PRESENT: ambulatory Neurological exam: PRESENT: alert, awake, oriented to person, oriented to place, oriented to time, oriented to situation, CN II-XII grossly intact. ABSENT: motor sensory deficit Psychiatric exam: PRESENT: appropriate affect, normal mood. ABSENT: homicidal ideation, suicidal ideation Skin exam: PRESENT: dry, intact, warm. ABSENT: cyanosis, rash Results Laboratory Results: 08/21/20 05:49 08/21/20 05:49 08/21/20 08/21/20 05:49 05:49 WBC 17.2 H RBC 4.05 Hgb 11.6 L Hct 33.7 L MCV 83 MCH 28.7 MCHC 34.5 RDW 14.0 Plt Count 258 Sodium 139.0 Potassium 4.1 Chloride 110 H Carbon Dioxide 18 L Anion Gap 11 BUN 36 H Creatinine 1.84 H Est GFR ( Amer) 32 L Glucose 169 H Calcium 8.2 L 08/19/20 00:48 Clean Catch Midstream Urine Culture - Final Escherichia Coli 08/19/20 02:35 Blood Blood Culture (PCR) - Final Escherichia Coli 08/19/20 02:35 Blood Blood Culture - Final Escherichia Coli 08/18/20 08/19/20 08/19/20 21:40 00:48 06:15 Troponin I 0.060 0.060 0.039 08/19/20 08/20/20 17:45 00:58 Troponin I 0.036 0.030 Impressions: Abdomen/Pelvis CT 08/18/20 22:33 IMPRESSION: 1. Nonspecific bilateral perinephric stranding likely incidental but consider correlation with urinalysis to exclude infection. 2. Otherwise essentially unremarkable unenhanced exam. Assessment and Plan - Diagnosis (1) Pyelonephritis Is this a current diagnosis for this admission?: Yes Plan: Presented with leukocytosis, abdominal pain, bilateral CVA. Hematuria on UA. CT abdomen positive for bilateral fat stranding of the kidney suspicion for pyelonephritis. Denies any previous history of pyelonephritis, urogenital instrumentation, any urogenital anomalies, any nephrolithiasis. Blood cultures show pansensitive E. coli Urine culture show pansensitive E. coli Received IV Cefepime x1 day; changed to Meropenem due to persistent leukocytosis and acutely ill appearance. Meropenem x 1 day. Will await repeat culture results and then return to cefepime if no other organisms; likely tomorrow. Continue IV fluids Analgesics and antiemetics as needed. (2) Bacteremia due to Escherichia coli Is this a current diagnosis for this admission?: Yes Plan: Cultures and antibiotics as above. (3) Diabetes Qualifiers: Diabetes mellitus type: type 2 Chronic kidney disease stage: stage 3 (moderate) Is this a current diagnosis for this admission?: Yes Plan: A1C 7.8% Continue to Lantus 60 units nightly. Patient is placed on a consistent carb diet. Accu-Cheks before meals and at bedtime with Humalog for sliding scale coverage. Hypoglycemia protocol in place. (4) Hypertension Is this a current diagnosis for this admission?: Yes Plan: Intermittently elevated Continue home regimen of amlodipine, telmisartan Continue metoprolol 50 mg q12 PRN IV hydralazine. (5) Elevated troponin Is this a current diagnosis for this admission?: Yes Plan: History of CAD status post stent placement. Denies any chest pain. Mildly elevated troponin; trending down and no longer following. No acute EKG change. Admit telemetry, DAPT, DINA, statins Discussed with Dr. Chambers; likely due to demand mismatch in the setting of worsen ing renal function. Stable/appropriate to delay cardiac consultation at this time; will re-consult a s needed. (6) Fall Qualifiers: Encounter type: initial encounter Qualified Code(s): W19.XXXA - Unspecified fall, initial encounter Is this a current diagnosis for this admission?: Yes Plan: Mechanical fall, denies any loss of consciousness, palpitation, lightheadedness, or head trauma. Monitor for fall, supportive measures. PT consultation. (7) CAD (coronary artery disease) Qualifiers: Coronary Disease-Associated Artery/Lesion type: [place] artery Is this a current diagnosis for this admission?: Yes Plan: Denies any anginal stress, mildly elevated troponins, status post stent placement. Resume home meds. Outpatient PCP and cardiology follow-up. (8) Suspected COVID-19 virus infection Is this a current diagnosis for this admission?: Yes Plan: RULED OUT COVID test is NEGATIVE. No suspicion for false negative; patient's symptoms clearly explained by pyelonephritis/bacteremia. (9) Vwjqr-xz-hwjeibs kidney injury Qualifiers: Acute renal failure type: unspecified Chronic kidney disease stage: stage 4 (severe) Qualified Code(s): N17.9 - Acute kidney failure, unspecified; N18.4 - Chronic kidney disease, stage 4 (severe) Is this a current diagnosis for this admission?: Yes Plan: Resolved. Likely prerenal r/t dehydration, acute infection, hypotension, sepsis. 08/2019: eGFR 24, CR 1.99 Admitted w/ eGFR 16 and Cr 2.93; now eGFR 27 and Cr 1.78 Received appropriate IVF resuscitation. Continue treatment of pyelonephritis as above. Avoid nephrotoxic medications as able. Follow chemistries. - Time Time Spent with patient: 25-34 minutes Medications reviewed and adjusted accordingly: Yes Anticipated Discharge Disposition: Home, Self Care Anticipated Discharge Timeframe: >72 hrs r/t bacteremia
[2020-08-21] MEDS: MORPHINE SULFATE 10 MG/ML INJ IV PRN (20:11)
[2020-08-21] MEDS: PROMETHAZINE HCL INJ 25 MG/1 ML VIAL IV PRN (22:14)
[2020-08-21] MEDS: EZETIMIBE 10 MG TABLET PO SCH (22:15)
[2020-08-21] MEDS: SIMVASTATIN 10 MG TABLET PO SCH (22:15)
[2020-08-21] MEDS: ATORVASTATIN CALCIUM 40 MG TABLET PO SCH (22:15)
[2020-08-22] MEDS: NORMAL SALINE 1000 ML 1,000 ML IV PRN ×2 (01:54→18:46)
[2020-08-22] MEDS: MEROPENEM 1 GM in NORMAL SALINE 50 ML IV SCH ×2 (05:32→14:44)
[2020-08-22 06:14] LABS: HEMATOCRIT 32.3 % (36.0-47.0); MEAN CORPUSCULAR HEMOGLOBIN 28.6 pg (27.0-33.4); MEAN CORPUSCULAR VOLUME 84 fl (80-97); PLATELET COUNT 277 10^3/uL (150-450); RED BLOOD COUNT 3.85 10^6/uL (3.72-5.28); RED CELL DISTRIBUTION WIDTH 14.4 % (11.5-14.0); WHITE BLOOD COUNT 13.5 10^3/uL (4.0-10.5)
[2020-08-22] MEDS: ONDANSETRON HCL INJ/PF 4 MG/2 ML SDV IV PRN ×2 (07:56→16:35)
[2020-08-22] MEDS: ACETAMINOPHEN 325 MG TABLET PO PRN ×2 (07:56→23:32)
[2020-08-22] MEDS: INSULIN LISPRO 100 UNIT/ML 3 ML VIAL SUBCUT SCH ×4 (08:12→22:45)
[2020-08-22] MEDS: INSULIN GLARGINE,HUM.REC.ANLOG 1,000 UNIT/10 ML VIAL SUBCUT SCH (09:35)
[2020-08-22] MEDS: FAMOTIDINE INJ/PF 20 MG/2 ML SDV IV SCH (09:35)
[2020-08-22] MEDS: ENOXAPARIN SODIUM INJ 80 MG/0.8 ML DISP.SYRIN SUBCUT SCH (09:35)
[2020-08-22] MEDS: METOPROLOL TARTRATE 25 MG TABLET PO SCH ×2 (09:36→22:13)
[2020-08-22] MEDS: ASPIRIN 81 MG TABLET, CHEWABLE PO SCH (09:36)
[2020-08-22] MEDS: DOCUSATE SODIUM 100 MG CAPSULE PO SCH ×2 (09:36→17:44)
[2020-08-22] MEDS: LOSARTAN POTASSIUM 50 MG TABLET PO SCH (09:36)
[2020-08-22] MEDS: AMLODIPINE BESYLATE 10 MG TABLET PO SCH (09:36)
[2020-08-22] MEDS: CLOPIDOGREL BISULFATE 75 MG TABLET PO SCH (09:36)
[2020-08-22 11:52] LABS: APPEARANCE,URINE SLIGHTLY-CLOUDY; BILIRUBIN,URINE NEGATIVE (NEGATIVE); COLOR,URINE YELLOW; GLUCOSE, URINE >=500 mg/dL (NEGATIVE); KETONES,URINE TRACE mg/dL (NEGATIVE); LEUKOCYTE ESTERASE,URINE TRACE (NEGATIVE); NITRITE,URINE NEGATIVE (NEGATIVE); PROTEIN,URINE >=500 mg/dL (NEGATIVE); URINE SPECIFIC GRAVITY 1.013
--- NOTE | 2020-08-22 14:29 | RADIOLOGY REPORT (SQ) ---
EXAM DESCRIPTION: CT ABD/PELVIS ORAL ONLY IMAGES COMPLETED DATE/TIME: 08/22/2020 1:19 pm REASON FOR STUDY: LLQ abdominal pain, n/v COMPARISON: CT of the abdomen pelvis without contrast from 08/19/2020. TECHNIQUE: CT scan of the abdomen and pelvis performed without intravenous or oral contrast. Images reviewed with lung, soft tissue, and bone windows. Reconstructed coronal and sagittal MPR images revi ewed. All images stored on PACS. All CT scanners at this facility use dose modulation, iterative reconstruction, and/or weight based d osing when appropriate to reduce radiation dose to as low as reasonably achievable (ALARA). [facility]: Dose Right [facility]: CareDose [facility]: Dose Right [facility]: Teradose 4D [facility]: [employer] RADIATION DOSE: CT Rad equipment meets quality standard of care and radiation dose reduction techniq ues were employed. CTDIvol: 13.4 mGy. DLP: 697 mGy-cm. LIMITATIONS: None. FINDINGS: LOWER CHEST: Atherosclerotic calcification of the coronary arteries and trace left pleural effusion. NON-CONTRASTED LIVER, SPLEEN, ADRENALS: Evaluation is limited due to the absence of intravenous contr ast. The left hepatic lobe is atrophic or surgically absent. The attenuation of the hepatic parenchy mal equals 42 Hounsfield units. The spleen is normal in size. There is no adrenal mass. PANCREAS: No acute gross abnormality of the pancreas. GALLBLADDER: The gallbladder surgically absent. RIGHT KIDNEY AND URETER: Evaluation is limited due to the absence of intravenous contrast. The mild stranding of the perinephric fat is unchanged. There is no hydronephrosis, nephrolithiasis, hydroure ter or ureterolithiasis. LEFT KIDNEY AND URETER: Evaluation is limited due to the absence of intravenous contrast. The mild s tranding of the perinephric fat is unchanged. There is no hydronephrosis, nephrolithiasis, hydrouret er or ureterolithiasis. AORTA AND RETROPERITONEUM: Atherosclerotic calcification of the abdominal aorta and iliac arteries. There is no retroperitoneal adenopathy, hemorrhage or mass. BOWEL AND PERITONEAL CAVITY: Colonic diverticulosis without diverticulitis. There is no bowel obstru ction, bowel wall thickening or pericolonic/ perienteric inflammation. There is no mesenteric adenop athy, free intraperitoneal fluid or mesenteric/ omental inflammation. APPENDIX: Unable to identify the appendix. There is no pericecal inflammation PELVIS, BLADDER, AND ABDOMINAL WALL:The uterus is surgically absent. There is no urinary bladder kirk culus. There is mild anasarca. BONES: Degenerative spondylosis and facet joint arthropathy of the lumbar spine. There is no fractur e or osseous lesion. OTHER: No other findings. IMPRESSION: 1. No acute intra-abdominal abnormality. 2. Colonic diverticulosis without diverticulitis. COMMENT: Quality ID # [id number]: Final reports with documentation of one or more dose reduction techniques (e.g., Automated exposure control, adjustment of the mA and/or kV according to patient size, use of iterative reconstruction technique) TECHNICAL DOCUMENTATION: JOB ID: [id number] 2010 [email or web address]- All Rights Reserved Reading location - IP/workstation name: [email or web address]
[2020-08-22] MEDS: MORPHINE SULFATE 10 MG/ML INJ IV PRN (17:43)
[2020-08-22] MEDS: IPRATROPIUM/ALBUTEROL 0.5-2.5 MG/3 ML AMPUL NEB PRN (18:07)
--- NOTE | 2020-08-22 18:08 | PDOC PROGRESS REPORT ---
Subjective Progress Note for:: 08/22/20 Subjective:: JAEL ALVARES is a 75 year old female past medical history of CAD status post stent placement, diabetes, hypertension, who was admitted 08/19/20 for pyelonephritis. Patient was seen on morning rounds. She is found sitting up to the recliner, comfortably, on room air. She reports increase LLQ abdominal discomfort w/ associated poor appetite, nausea, and vomiting. Reports she is not tolerating food but able to hold down liquids. Some CVA tenderness today. Continues to have fatigue and malaise, though slightly improved. She denies fevers, chest pain, palpitations, dyspnea, abdominal pain, and diarrhea. She has no questions or concerns at this time. No concerns per nursing. Reason For Visit: PYELONEPHRITIS,NAUSEA,VOMITING,ELEVATED TROPS Physical Exam Vital Signs: Temp Pulse Resp BP Pulse Ox 97.4 F 80 16 174/47 H 97 08/22/20 16:03 08/22/20 16:03 08/22/20 16:03 08/22/20 16:03 08/22/20 16:03 Intake & Output 08/21/20 08/22/20 08/23/20 06:59 06:59 06:59 Intake Total 1900 3681 260 Balance 1900 3681 260 Weight 81.5 kg 83.1 kg General appearance: PRESENT: no acute distress, cooperative, well-developed, well-nourished, other - acutely ill appearing Head exam: PRESENT: atraumatic, normocephalic Eye exam: PRESENT: conjunctiva pink, EOMI, PERRLA. ABSENT: scleral icterus Mouth exam: PRESENT: moist, tongue midline Respiratory exam: PRESENT: clear to auscultation [place], symmetrical, unlabored. ABSENT: rales, rhonchi, wheezes Cardiovascular exam: PRESENT: RRR. ABSENT: diastolic murmur, rubs, systolic murmur Vascular exam: PRESENT: normal capillary refill GI/Abdominal exam: PRESENT: normal bowel sounds, soft, tenderness - LLQ. ABSENT: distended, guarding, mass, organolmegaly, rebound Rectal exam: PRESENT: deferred Extremities exam: PRESENT: full ROM. ABSENT: calf tenderness, clubbing, pedal edema Musculoskeletal exam: PRESENT: ambulatory Neurological exam: PRESENT: alert, awake, oriented to person, oriented to place, oriented to time, oriented to situation, CN II-XII grossly intact. ABSENT: motor sensory deficit Psychiatric exam: PRESENT: appropriate affect, normal mood. ABSENT: homicidal ideation, suicidal ideation Skin exam: PRESENT: dry, intact, warm. ABSENT: cyanosis, rash Results Laboratory Results: 08/22/20 05:19 08/21/20 05:49 08/22/20 08/22/20 05:19 08:00 WBC 13.5 H RBC 3.85 Hgb 11.0 L Hct 32.3 L MCV 84 MCH 28.6 MCHC 34.0 RDW 14.4 H Plt Count 277 Urine Color YELLOW Urine Appearance SLIGHTLY-CLOUDY Urine pH 5.0 Ur Specific [place] 1.013 Urine Protein >=500 H Urine Glucose (UA) >=500 H Urine Ketones TRACE H Urine Blood MODERATE H Urine Nitrite NEGATIVE Ur Leukocyte Esterase TRACE H Urine WBC (Auto) 34 Urine RBC (Auto) 15 08/18/20 08/19/20 08/19/20 21:40 00:48 06:15 Troponin I 0.060 0.060 0.039 08/19/20 08/20/20 17:45 00:58 Troponin I 0.036 0.030 Impressions: Abdomen/Pelvis CT 08/22/20 00:00 IMPRESSION: 1. No acute intra-abdominal abnormality. 2. Colonic diverticulosis without diverticulitis. Assessment and Plan - Diagnosis (1) Pyelonephritis Is this a current diagnosis for this admission?: Yes Plan: Presented with leukocytosis, abdominal pain, bilateral CVA. Hematuria on UA. CT abdomen positive for bilateral fat stranding of the kidney suspicion for pyelonephritis. Denies any previous history of pyelonephritis, urogenital instrumentation, any urogenital anomalies, any nephrolithiasis. Blood cultures show pansensitive E. coli Urine culture show pansensitive E. coli Repeat blood cultures negative at 24 hours. Received IV Cefepime x1 day; changed to Meropenem due to persistent leukocytosis and acutely ill appearance. Meropenem x2 days. Will await repeat culture results and then return to cefepime if no other organisms; likely tomorrow. Continue IV fluids Analgesics and antiemetics as needed. (2) Bacteremia due to Escherichia coli Is this a current diagnosis for this admission?: Yes Plan: Blood culture (08/19/2020) pansensitive E. coli in 1 set Repeat blood cultures (08/21/2020) negative at 24 hours. Patient received cefepime x1 days. Was transitioned to meropenem due to persistent leukocytosis and toxic appea cielo. Meropenem x2 day. May consider de-escalating antibiotics if repeat cultures remain negative and patient continues to improve. (3) Diabetes Qualifiers: Diabetes mellitus type: type 2 Chronic kidney disease stage: stage 3 ( moderate) Is this a current diagnosis for this admission?: Yes Plan: A1C 7.8% Continue to Lantus 60 units nightly. Patient is placed on a consistent carb diet. Accu-Cheks before meals and at bedtime with Humalog for sliding scale coverage. Hypoglycemia protocol in place. (4) Hypertension Is this a current diagnosis for this admission?: Yes Plan: Intermittently elevated Continue home regimen of amlodipine, telmisartan Continue metoprolol 50 mg q12 PRN IV hydralazine. (5) Elevated troponin Is this a current diagnosis for this admission?: Yes Plan: History of CAD status post stent placement. Denies any chest pain. Mildly elevated troponin; trending down and no longer following. No acute EKG change. Admit telemetry, DAPT, DINA, statins Discussed with Dr. Chambers; likely due to demand mismatch in the setting of worsening renal function. Stable/appropriate to delay cardiac consultation at this time; will re-consult as needed. (6) Fall Qualifiers: Encounter type: initial encounter Qualified Code(s): W19.XXXA - Unspecified fall, initial encounter Is this a current diagnosis for this admission?: Yes Plan: Mechanical fall, denies any loss of consciousness, palpitation, lightheadedness, or head trauma. Monitor for fall, supportive measures. PT consultation. (7) CAD (coronary artery disease) Qualifiers: Coronary Disease-Associated Artery/Lesion type: [place] artery Is this a current diagnosis for this admission?: Yes Plan: Denies any anginal stress, mildly elevated troponins, status post stent placement. Resume home meds. Outpatient PCP and cardiology follow-up. (8) Suspected COVID-19 virus infection Is this a current diagnosis for this admission?: Yes Plan: RULED OUT COVID test is NEGATIVE. No suspicion for false negative; patient's symptoms clearly explained by pyelonephritis/bacteremia. (9) [id number] kidney injury Qualifiers: Acute renal failure type: unspecified Chronic kidney disease stage: stage 4 (severe) Qualified Code(s): N17.9 - Acute kidney failure, unspecified; N18.4 - Chronic kidney disease, stage 4 (severe) Is this a current diagnosis for this admission?: Yes Plan: Resolved. Likely prerenal r/t dehydration, acute infection, hypotension, sepsis. 08/2019: eGFR 24, CR 1.99 Admitted w/ eGFR 16 and Cr 2.93; now eGFR 27 and Cr 1.78 Received appropriate IVF resuscitation. Continue treatment of pyelonephritis as above. Avoid nephrotoxic medications as able. Follow chemistries. (10) Left lower quadrant abdominal pain Is this a current diagnosis for this admission?: Yes Plan: CT abdomen pelvis with oral contrast revealed diverticulosis without diverticulitis. No other acute findings. It is possible that her LLQ pain is related to pyelonephritis; she does have some left neck pain. Also possible the patient has undetected kidney stone. Cultures and antibiotics as above. Antiemetics and analgesics as needed. Encourage p.o. fluids; eat as tolerated. - Time Time Spent with patient: 35 or more minutes Medications reviewed and adjusted accordingly: Yes Anticipated Discharge Disposition: Home, Self Care Anticipated Discharge Timeframe: within 72 hours
[2020-08-22] MEDS: PROMETHAZINE HCL INJ 25 MG/1 ML VIAL IV PRN ×2 (18:45→23:32)
[2020-08-22] MEDS: SIMVASTATIN 10 MG TABLET PO SCH (22:13)
[2020-08-22] MEDS: ATORVASTATIN CALCIUM 40 MG TABLET PO SCH (22:13)
[2020-08-22] MEDS: EZETIMIBE 10 MG TABLET PO SCH (22:14)
[2020-08-23 05:02] LABS: HEMATOCRIT 31.6 % (36.0-47.0); MEAN CORPUSCULAR HEMOGLOBIN 28.8 pg (27.0-33.4); MEAN CORPUSCULAR HGB CONC 34.8 g/dL (32.0-36.0); MEAN CORPUSCULAR VOLUME 83 fl (80-97); PLATELET COUNT 299 10^3/uL (150-450); RED BLOOD COUNT 3.82 10^6/uL (3.72-5.28); RED CELL DISTRIBUTION WIDTH 14.5 % (11.5-14.0); WHITE BLOOD COUNT 13.3 10^3/uL (4.0-10.5)
[2020-08-23 05:17] LABS: ANION GAP 9 (5-19); BLOOD UREA NITROGEN 27 mg/dL (7-20); CALCIUM 7.5 mg/dL (8.4-10.2); CARBON DIOXIDE 18 mmol/L (22-30); CHLORIDE 112 mmol/L (98-107); POTASSIUM 3.5 mmol/L (3.6-5.0)
[2020-08-23 05:40] LABS: GLUCOSE 47 mg/dL (75-110)
[2020-08-23] MEDS ORDERED: MEROPENEM 1 GM in NORMAL SALINE 50 ML IV SCH (06:00)
[2020-08-23] MEDS: INSULIN LISPRO 100 UNIT/ML 3 ML VIAL SUBCUT SCH ×4 (08:00→22:00)
[2020-08-23] MEDS ORDERED: INSULIN GLARGINE,HUM.REC.ANLOG 1,000 UNIT/10 ML VIAL SUBCUT SCH (10:00)
[2020-08-23] MEDS ORDERED: INSULIN GLARGINE,HUM.REC.ANLOG 1,000 UNIT/10 ML VIAL (PYX) SUBCUT ONE (10:49)
[2020-08-23] MEDS: AMLODIPINE BESYLATE 10 MG TABLET PO SCH (10:52)
[2020-08-23] MEDS: CLOPIDOGREL BISULFATE 75 MG TABLET PO SCH (10:53)
[2020-08-23] MEDS: METOPROLOL TARTRATE 25 MG TABLET PO SCH ×2 (10:53→21:59)
[2020-08-23] MEDS: FAMOTIDINE INJ/PF 20 MG/2 ML SDV IV SCH (10:53)
[2020-08-23] MEDS: LOSARTAN POTASSIUM 50 MG TABLET PO SCH (10:53)
[2020-08-23] MEDS: DOCUSATE SODIUM 100 MG CAPSULE PO SCH ×2 (10:53→17:15)
[2020-08-23] MEDS: ASPIRIN 81 MG TABLET, CHEWABLE PO SCH (10:53)
[2020-08-23] MEDS: INSULIN GLARGINE,HUM.REC.ANLOG 1,000 UNIT/10 ML VIAL SUBCUT SCH (10:58)
[2020-08-23] MEDS: ENOXAPARIN SODIUM INJ 80 MG/0.8 ML DISP.SYRIN SUBCUT SCH (10:59)
[2020-08-23] MEDS: IPRATROPIUM/ALBUTEROL 0.5-2.5 MG/3 ML AMPUL NEB PRN (11:44)
[2020-08-23] MEDS: NORMAL SALINE 1000 ML 1,000 ML IV PRN (12:46)
[2020-08-23] MEDS ORDERED: RINGERS SOLUTION,LACTATED 1,000 ML IV PRN (15:20)
[2020-08-23] MEDS: ACETAMINOPHEN 325 MG TABLET PO PRN ×2 (15:22→21:58)
--- NOTE | 2020-08-23 15:24 | PDOC PROGRESS REPORT ---
Subjective Progress Note for:: 08/23/20 Subjective:: JAEL ALVARES is a 75 year old female past medical history of CAD status post stent placement, diabetes, hypertension, tenting to ED complaining of generalized weakness, nausea, diarrhea, dysuria, abdominal pain, back pain, patient also stating that because of her weakness legs gave out and ultimately fell, denies any loss of consciousness or head trauma, patient was seen by her PCP about 2 days ago, was tested for COVID and strep, and was discharged home. Patient was noted to have leukocytosis with UA positive for leukocyte esterase and CT abdomen positive for bilateral stranding of the kidneys likely pyelonephritis. Patient denies any chest pain, shortness of breath, fever, chills, palpitation, lightheadedness. Hospital was consulted for admission.CT abdomen positive for bilateral fat stranding of the kidney suspicion for pyelonephritis. Denies any previous history of pyelonephritis, urogenital instrumentation, any urogenital anomalies, any nephrolithiasis. 08/19/20. She was initially started on Cefepime. Blood and urine culture grew E.coli. Cefepime continued. Dr. Chambers consulted for elevated troponin. Per DR. Chambers likely from ongoing infection 08/20/20. Abx switched to meropenem as patient still experiencing symptoms and persistent leukocytosis 08/21/20. Meropenem continued. 08/22/20. repeat CT abdomen no acute intra-abdominal abnormality. Colonic diverticulosis without diverticulitis. No hydronephrosis, no nephrolithiasis. 08/23/20. The patient was seen and examined at bedside. Still with generalized weakness and poor appetite, although she has been afebrile, no nausea/vomiting. WBC count 13.3. Cultures reviewed. Repeat Blood culture no growth 08/21/20. Previous culture E Coli pansensitive. Patient still appears weak looking, she would be D4 of meropenem today Reason For Visit: PYELONEPHRITIS,NAUSEA,VOMITING,ELEVATED TROPS Physical Exam Vital Signs: Temp Pulse Resp BP Pulse Ox 98.1 F 72 20 160/72 H 94 08/23/20 10:00 08/23/20 11:45 08/23/20 11:45 08/23/20 08:47 08/23/20 11:45 Intake & Output 08/22/20 08/23/20 08/24/20 06:59 06:59 06:59 Intake Total 3681 1838 1033 Output Total 600 Balance 3681 1238 1033 Weight 83.1 kg 85.1 kg General appearance: PRESENT: no acute distress, cooperative, other - weak looking Eye exam: PRESENT: EOMI, PERRLA Mouth exam: PRESENT: moist Neck exam: PRESENT: full ROM Respiratory exam: PRESENT: clear to auscultation [place], symmetrical, unlabored. ABSENT: rales, retraction Cardiovascular exam: PRESENT: RRR, +S1, +S2 Pulses: PRESENT: +2 pedal pulses bilateral GI/Abdominal exam: PRESENT: normal bowel sounds, soft. ABSENT: rebound, tenderness Extremities exam: PRESENT: full ROM Musculoskeletal exam: PRESENT: full ROM Neurological exam: PRESENT: alert, awake, oriented to person, oriented to place, oriented to time, oriented to situation Psychiatric exam: PRESENT: normal mood Skin exam: PRESENT: normal color Results Laboratory Results: 08/23/20 04:48 08/23/20 04:48 08/23/20 08/23/20 04:48 04:48 WBC 13.3 H RBC 3.82 Hgb 11.0 L Hct 31.6 L MCV 83 MCH 28.8 MCHC 34.8 RDW 14.5 H Plt Count 299 Sodium 139.3 Potassium 3.5 L Chloride 112 H Carbon Dioxide 18 L Anion Gap 9 BUN 27 H Creatinine 1.43 H Est GFR ( Amer) 43 L Glucose 47 L Calcium 7.5 L 08/18/20 08/19/20 08/19/20 21:40 00:48 06:15 Troponin I 0.060 0.060 0.039 08/19/20 08/20/20 17:45 00:58 Troponin I 0.036 0.030 Impressions: Abdomen/Pelvis CT 08/22/20 00:00 IMPRESSION: 1. No acute intra-abdominal abnormality. 2. Colonic diverticulosis without diverticulitis. Assessment and Plan - Diagnosis (1) Pyelonephritis Is this a current diagnosis for this admission?: Yes Plan: Presented with leukocytosis, abdominal pain, bilateral CVA. Hematuria on UA. CT abdomen positive for bilateral fat stranding of the kidney suspicion for pyelonephritis. Denies any previous history of pyelonephritis, urogenital instrumentation, any urogenital anomalies, any nephrolithiasis. Blood cultures show pansensitive E. coli Urine culture show pansensitive E. coli Repeat blood cultures negative at 48 hours. Received IV Cefepime x1 day; changed to Meropenem due to persistent leukocytosis and acutely ill appearance. Meropenem D4. Dose increased to q8. Will keep meropenem for today and switch to oral tomorrow as she still looks quite ill. Continue IV fluids Analgesics and antiemetics as needed. (2) Bacteremia due to Escherichia coli Is this a current diagnosis for this admission?: Yes Plan: Blood culture (08/19/2020) pansensitive E. coli in 1 set Repeat blood cultures (08/21/2020) negative at 48 hours. Patient received cefepime x1 days. Was transitioned to meropenem due to persistent leukocytosis and toxic appearance. Meropenem D4 will de escalate tomorrow as she still appears ill. (3) Diabetes Qualifiers: Diabetes mellitus type: type 2 Chronic kidney disease stage: stage 3 (moderate) Is this a current diagnosis for this admission?: Yes Plan: A1C 7.8% Continue to Lantus 60 units nightly. Patient is placed on a consistent carb diet. Accu-Cheks before meals and at bedtime with Humalog for sliding scale coverage. Hypoglycemia protocol in place. (4) Hypertension Is this a current diagnosis for this admission?: Yes Plan: Intermittently elevated Continue home regimen of amlodipine, telmisartan Continue metoprolol 50 mg q12 PRN IV hydralazine. (5) Elevated troponin Is this a current diagnosis for this admission?: Yes Plan: History of CAD status post stent placement. Denies any chest pain. Mildly elevated troponin; trending down and no longer following. No acute EKG change. Admit telemetry, DAPT, DINA, statins Discussed with Dr. Chambers; likely due to demand mismatch in the setting of worsening renal function. Stable/appropriate to delay cardiac consultation at this time; will re-consult as needed. (6) CAD (coronary artery disease) Qualifiers: Coronary Disease-Associated Artery/Lesion type: [place] artery Is this a current diagnosis for this admission?: Yes Plan: Denies any anginal stress, mildly elevated troponins, status post stent placement. Resume home meds. Outpatient PCP and cardiology follow-up. (7) [id number] kidney injury Qualifiers: Acute renal failure type: unspecified Chronic kidney disease stage: stage 4 (severe) Qualified Code(s): N17.9 - Acute kidney failure, unspecified; N18.4 - Chronic kidney disease, stage 4 (severe) Is this a current diagnosis for this admission?: Yes Plan: Resolved. Likely prerenal r/t dehydration, acute infection, hypotension, sepsis. 08/2019: eGFR 24, CR 1.99 Admitted w/ eGFR 16 and Cr 2.93; now eGFR 27 and Cr 1.78 Received appropriate IVF resuscitation. Continue treatment of pyelonephritis as above. Avoid nephrotoxic medications as able. Follow chemistries. (8) Left lower quadrant abdominal pain Is this a current diagnosis for this admission?: Yes Plan: CT abdomen pelvis with oral contrast revealed diverticulosis without diverticulitis. No other acute findings. It is possible that her LLQ pain is related to pyelonephritis; she does have some left neck pain. Also possible the patient has undetected kidney stone. Cultures and antibiotics as above. Antiemetics and analgesics as needed. Encourage p.o. fluids; eat as tolerated. (9) Fall Qualifiers: Encounter type: initial encounter Qualified Code(s): W19.XXXA - Unspecified fall, initial encounter Is this a current diagnosis for this admission?: Yes Plan: Mechanical fall, denies any loss of consciousness, palpitation, lightheadedness, or head trauma. Monitor for fall, supportive measures. PT consultation. - Time Time Spent with patient: 15-24 minutes Anticipated Discharge Disposition: Home, Self Care Anticipated Discharge Timeframe: within 48 hours
[2020-08-23] MEDS: MEROPENEM 1 GM in NORMAL SALINE 50 ML IV SCH (17:20)
[2020-08-23] MEDS: EZETIMIBE 10 MG TABLET PO SCH (21:59)
[2020-08-23] MEDS: PROMETHAZINE HCL INJ 25 MG/1 ML VIAL IV PRN (21:59)
[2020-08-23] MEDS: ATORVASTATIN CALCIUM 40 MG TABLET PO SCH (21:59)
[2020-08-23] MEDS: SIMVASTATIN 10 MG TABLET PO SCH (22:00)
[2020-08-24] MEDS: MEROPENEM 1 GM in NORMAL SALINE 50 ML IV SCH (06:08)
[2020-08-24 06:11] LABS: HEMATOCRIT 34.8 % (36.0-47.0); HEMOGLOBIN 11.8 g/dL (12.0-15.5); MEAN CORPUSCULAR HEMOGLOBIN 28.1 pg (27.0-33.4); MEAN CORPUSCULAR VOLUME 83 fl (80-97); PLATELET COUNT 329 10^3/uL (150-450); RED BLOOD COUNT 4.21 10^6/uL (3.72-5.28); RED CELL DISTRIBUTION WIDTH 14.1 % (11.5-14.0); WHITE BLOOD COUNT 14.1 10^3/uL (4.0-10.5)
[2020-08-24] MEDS: ONDANSETRON HCL INJ/PF 4 MG/2 ML SDV IV PRN ×2 (07:50→23:17)
[2020-08-24] MEDS: INSULIN LISPRO 100 UNIT/ML 3 ML VIAL SUBCUT SCH ×4 (08:27→23:29)
[2020-08-24] MEDS: IPRATROPIUM/ALBUTEROL 0.5-2.5 MG/3 ML AMPUL NEB PRN (08:37)
[2020-08-24] MEDS: ENOXAPARIN SODIUM INJ 80 MG/0.8 ML DISP.SYRIN SUBCUT SCH (10:40)
[2020-08-24] MEDS: ASPIRIN 81 MG TABLET, CHEWABLE PO SCH (10:40)
[2020-08-24] MEDS: FAMOTIDINE INJ/PF 20 MG/2 ML SDV IV SCH (10:40)
[2020-08-24] MEDS: LOSARTAN POTASSIUM 50 MG TABLET PO SCH (10:41)
[2020-08-24] MEDS: METOPROLOL TARTRATE 25 MG TABLET PO SCH ×2 (10:41→23:13)
[2020-08-24] MEDS: AMLODIPINE BESYLATE 10 MG TABLET PO SCH (10:41)
[2020-08-24] MEDS: DOCUSATE SODIUM 100 MG CAPSULE PO SCH ×2 (10:42→18:14)
[2020-08-24] MEDS: CLOPIDOGREL BISULFATE 75 MG TABLET PO SCH (10:42)
[2020-08-24] MEDS: INSULIN GLARGINE,HUM.REC.ANLOG 1,000 UNIT/10 ML VIAL SUBCUT SCH (12:10)
[2020-08-24] MEDS: PROMETHAZINE HCL INJ 25 MG/1 ML VIAL IV PRN (12:10)
[2020-08-24 13:03] LABS: ALBUMIN 2.6 g/dL (3.5-5.0); ALKALINE PHOSPHATASE 91 U/L (38-126); ANION GAP 9 (5-19); ASPARTATE AMINO TRANSFERASE 30 U/L (14-36); BILIRUBIN,DIRECT 0.3 mg/dL (0.0-0.4); BILIRUBIN,TOTAL 0.5 mg/dL (0.2-1.3); BLOOD UREA NITROGEN 17 mg/dL (7-20); CALCIUM 8.2 mg/dL (8.4-10.2); CARBON DIOXIDE 19 mmol/L (22-30); CHLORIDE 111 mmol/L (98-107); POTASSIUM 3.5 mmol/L (3.6-5.0); TOTAL PROTEIN 5.9 g/dL (6.3-8.2)
[2020-08-24 13:13] LABS: GLUCOSE 56 mg/dL (75-110)
[2020-08-24] MEDS ORDERED: VANCOMYCIN HCL 0 MG in DEXTROSE 5%-WATER 250 ML IV NR (19:15)
--- NOTE | 2020-08-24 19:20 | PDOC PROGRESS REPORT ---
Subjective Progress Note for:: 08/24/20 Subjective:: JAEL ALVARES is a 75 year old female past medical history of CAD status post stent placement, diabetes, hypertension, tenting to ED complaining of generalized weakness, nausea, diarrhea, dysuria, abdominal pain, back pain, patient also stating that because of her weakness legs gave out and ultimately fell, denies any loss of consciousness or head trauma, patient was seen by her PCP about 2 days ago, was tested for COVID and strep, and was discharged home. Patient was noted to have leukocytosis with UA positive for leukocyte esterase and CT abdomen positive for bilateral stranding of the kidneys likely pyelonephritis. Patient denies any chest pain, shortness of breath, fever, chills, palpitation, lightheadedness. Hospital was consulted for admission.CT abdomen positive for bilateral fat stranding of the kidney suspicion for pyelonephritis. Denies any previous history of pyelonephritis, urogenital instrumentation, any urogenital anomalies, any nephrolithiasis. 08/19/20. She was initially started on Cefepime. Blood and urine culture grew E.coli. Cefepime continued. Dr. Chambers consulted for elevated troponin. Per DR. Chambers likely from ongoing infection 08/20/20. Abx switched to meropenem as patient still experiencing symptoms and persistent leukocytosis 08/21/20. Meropenem continued. 08/22/20. repeat CT abdomen no acute intra-abdominal abnormality. Colonic diverticulosis without diverticulitis. No hydronephrosis, no nephrolithiasis. 08/23/20. The patient was seen and examined at bedside. Still with generalized weakness and poor appetite, although she has been afebrile, no nausea/vomiting. WBC count 13.3. Cultures reviewed. Repeat Blood culture no growth 08/21/20. Previous culture E Coli pansensitive. Patient still appears weak looking, she would be D4 of meropenem today. 08/24/20. She was seen and examined at bedside. Still feels weak with nausea no vomiting. Afebrile. Blood cultures reviewed. WBC count went up slightly. I changed her back to cefepime since she failed to clinically improved with 2 days of meropenem. Id consulted for abx guidance with failure to improve on meropenem despite being sensitive to it on both blood and urine culture. Reason For Visit: PYELONEPHRITIS,NAUSEA,VOMITING,ELEVATED TROPS Physical Exam Vital Signs: Temp Pulse Resp BP Pulse Ox 97.6 F 68 24 H 177/49 H 93 08/24/20 17:06 08/24/20 17:06 08/24/20 17:06 08/24/20 17:06 08/24/20 17:06 Intake & Output 08/23/20 08/24/20 08/25/20 06:59 06:59 06:59 Intake Total 1838 2261 1050 Output Total 600 3 Balance 1238 2258 1050 Weight 85.1 kg 85.5 kg General appearance: PRESENT: no acute distress, cooperative Head exam: PRESENT: atraumatic, normocephalic Eye exam: PRESENT: EOMI Mouth exam: PRESENT: moist Neck exam: PRESENT: full ROM Respiratory exam: PRESENT: clear to auscultation [place], symmetrical, unlabored Cardiovascular exam: PRESENT: RRR, +S1, +S2 GI/Abdominal exam: PRESENT: normal bowel sounds, soft. ABSENT: rebound, tenderness Extremities exam: PRESENT: full ROM Musculoskeletal exam: PRESENT: full ROM Neurological exam: PRESENT: alert, awake, oriented to person, oriented to place, oriented to time, oriented to situation Psychiatric exam: PRESENT: normal mood Skin exam: PRESENT: normal color Results Laboratory Results: 08/24/20 05:47 08/24/20 05:47 08/24/20 08/24/20 05:47 05:47 WBC 14.1 H RBC 4.21 Hgb 11.8 L Hct 34.8 L MCV 83 MCH 28.1 MCHC 34.0 RDW 14.1 H Plt Count 329 Sodium 139.0 Potassium 3.5 L Chloride 111 H Carbon Dioxide 19 L Anion Gap 9 BUN 17 Creatinine 1.18 Est GFR ( Amer) 54 L Glucose 56 L Calcium 8.2 L Total Bilirubin 0.5 AST 30 Alkaline Phosphatase 91 Total Protein 5.9 L Albumin 2.6 L 08/19/20 03:20 Blood Blood Culture - Final NO GROWTH IN 5 DAYS 08/18/20 08/19/20 08/19/20 21:40 00:48 06:15 Troponin I 0.060 0.060 0.039 08/19/20 08/20/20 17:45 00:58 Troponin I 0.036 0.030 Impressions: Abdomen/Pelvis CT 08/22/20 00:00 IMPRESSION: 1. No acute intra-abdominal abnormality. 2. Colonic diverticulosis without diverticulitis. Assessment and Plan - Diagnosis (1) Pyelonephritis Is this a current diagnosis for this admission?: Yes Plan: Presented with leukocytosis, abdominal pain, bilateral CVA. Hematuria on UA. CT abdomen positive for bilateral fat stranding of the kidney suspicion for pyelonephritis. Denies any previous history of pyelonephritis, urogenital instrumentation, any urogenital anomalies, any nephrolithiasis. Blood cultures show pansensitive E. coli Urine culture show pansensitive E. coli Repeat blood cultures negative at 48 hours. Received IV Cefepime x1 day; changed to Meropenem due to persistent leukocytosis and acutely ill appearance. Meropenem D4 but she failed to clinically improve, WBC count increased today ID consulted. Switched her back to cefepime, added Vanc Continue IV fluids Analgesics and antiemetics as needed. (2) Bacteremia due to Escherichia coli Is this a current diagnosis for this admission?: Yes Plan: Blood culture (08/19/2020) pansensitive E. coli in 1 set Repeat blood cultures (08/21/2020) negative at 48 hours. Patient received cefepime x1 days. Was transitioned to meropenem due to persistent leukocytosis and toxic appearance. Meropenem D4, still failing to show clinical improvement switched back to cefepime, added vanc, repeat blood cx ID consulted (3) Diabetes Qualifiers: Diabetes mellitus type: type 2 Chronic kidney disease stage: stage 3 (moderate) Is this a current diagnosis for this admission?: Yes Plan: A1C 7.8% Continue to Lantus 60 units nightly. Patient is placed on a consistent carb diet. Accu-Cheks before meals and at bedtime with Humalog for sliding scale coverage. Hypoglycemia protocol in place. (4) Hypertension Is this a current diagnosis for this admission?: Yes Plan: Intermittently elevated Continue home regimen of amlodipine, telmisartan Continue metoprolol 50 mg q12 PRN IV hydralazine. (5) Elevated troponin Is this a current diagnosis for this admission?: Yes Plan: History of CAD status post stent placement. Denies any chest pain. Mildly elevated troponin; trending down and no longer following. No acute EKG change. Admit telemetry, DAPT, DINA, statins Discussed with Dr. Chambers; likely due to demand mismatch in the setting of worsening renal function. Stable/appropriate to delay cardiac consultation at this time; will re-consult as needed. (6) CAD (coronary artery disease) Qualifiers: Coronary Disease-Associated Artery/Lesion type: [place] artery Is this a current diagnosis for this admission?: Yes Plan: Denies any anginal stress, mildly elevated troponins, status post stent placement. Resume home meds. Outpatient PCP and cardiology follow-up. (7) [id number] kidney injury Qualifiers: Acute renal failure type: unspecified Chronic kidney disease stage: stage 4 (severe) Qualified Code(s): N17.9 - Acute kidney failure, unspecified; N18.4 - Chronic kidney disease, stage 4 (severe) Is this a current diagnosis for this admission?: Yes Plan: Resolved. Likely prerenal r/t dehydration, acute infection, hypotension, sepsis. 08/2019: eGFR 24, CR 1.99 Admitted w/ eGFR 16 and Cr 2.93; now eGFR 27 and Cr 1.78 Received appropriate IVF resuscitation. Continue treatment of pyelonephritis as above. Avoid nephrotoxic medications as able. Follow chemistries. (8) Left lower quadrant abdominal pain Is this a current diagnosis for this admission?: Yes Plan: CT abdomen pelvis with oral contrast revealed diverticulosis without diverticulitis. No other acute findings. It is possible that her LLQ pain is related to pyelonephritis; she does have some left neck pain. Also possible the patient has undetected kidney stone. Cultures and antibiotics as above. Antiemetics and analgesics as needed. Encourage p.o. fluids; eat as tolerated. (9) Fall Qualifiers: Encounter type: initial encounter Qualified Code(s): W19.XXXA - Unspecified fall, initial encounter Is this a current diagnosis for this admission?: Yes Plan: Mechanical fall, denies any loss of consciousness, palpitation, lightheadedness, or head trauma. Monitor for fall, supportive measures. PT consultation. - Time Time Spent with patient: 25-34 minutes Anticipated Discharge Disposition: Home, Self Care Anticipated Discharge Timeframe: to be determined
[2020-08-24] MEDS ORDERED: VANCOMYCIN HCL 1,250 MG in DEXTROSE 5%-WATER 250 ML IV SCH (20:00)
[2020-08-24] MEDS: MORPHINE SULFATE 10 MG/ML INJ IV PRN (20:27)
[2020-08-24] MEDS ORDERED: CEFEPIME 2 GM/D5W RTU 2 GM/50 ML RTUPB IV SCH (22:00)
--- NOTE | 2020-08-24 22:00 | Progress Note ---
Provider Note Provider Note: [facility] ID Telephone Advice Consultation Chart reviewed, patient not examined. This is [id number] woman with CAD s/p stent, hypertension, diabetes mellitus who was admitted on 08/19 due to dysuria, back pain, flank pain, nausea and vomiting. On admission she was found septic with a WBC 16-18k, acute kidney injury with a creatinine of 2.9. Blood glucose in 300s. Blood culture on 08/19 positive for E coli and urine culture as well. CT scan on 08/18 with bilateral perinephric stranding suggestive of pyelonephri tis. She was started on cefepime, later transitioned to meropenem due to increased WBC. She has been on antibiotics since 08/19, a repeat blood culture on 08/21 remains negative. A repeat CT scan of the abdomen and pelvis did not show hydronephrosis, perinephric stranding nor perinephric abscess. Leukocytosis slightly improved from admission, OSVALDO resolved. She continues on meropenem, vancomycin was added as some point. Her troponins were elevated, probably some demand ischemia. ID consulted for recommendatioon. Allergies: atenolol Allergy (Verified 06/12/18 07:14) Medications: Amlodipine Besylate [Norvasc 10 mg Tablet] 10 mg PO DAILY 08/19/20 Aspirin [Adult Low Dose Aspirin EC] 81 mg PO DAILY 08/19/20 Clopidogrel Bisulfate [Plavix 75 mg Tablet] 75 mg PO DAILY 08/19/20 Ezetimibe [Zetia 10 mg Tablet] 10 mg PO QHS 08/19/20 Gabapentin [Neurontin 300 mg Capsule] 300 mg PO QHS 08/19/20 Glipizide [Glipizide Xl] 5 mg PO DAILY 08/19/20 Insulin Aspart [Novolog Flexpen] 10 unit SQ QAM 08/19/20 Insulin Aspart [Novolog Flexpen] 12 unit SQ QPM 08/19/20 Insulin Detemir [Levemir Insulin 100 units/mL Insulin Pen] 70 unit SQ DAILY Metoprolol Tartrate [Lopressor 25 mg Tablet] 25 mg PO Q12 08/19/20 Nitroglycerin [Nitrostat 0.4 mg (1/150 Gr) Tabs 25/Bottle] 0.2 mg SL Q5MP PRN 08/19/20 Ondansetron [Zofran Odt 4 mg Tablet] 8 mg PO Q6HP PRN 08/19/20 Simvastatin 20 mg PO QHS 08/19/20 Sitagliptin Phosphate [Januvia 50 mg Tablet] 50 mg PO DAILY 08/19/20 Telmisartan 80 mg PO DAILY 08/19/20 Vital Signs: Temp Pulse Resp BP Pulse Ox 97.6 F 68 24 H 177/49 H 93 08/24/20 17:06 08/24/20 17:06 08/24/20 17:06 08/24/20 17:06 08/24/20 17:06 Intake & Output 08/23/20 08/24/20 08/25/20 06:59 06:59 06:59 Intake Total 1838 2261 1050 Output Total 600 3 Balance 1238 2258 1050 Weight 85.1 kg 85.5 kg Weight/Height Weight 85.5 kg Height 5 ft 5 in Laboratories: 08/24/20 05:47 08/24/20 05:47 MCV 83 fl (80-97) 08/24/20 05:47 MCH 28.1 pg (27.0-33.4) 08/24/20 05:47 MCHC 34.0 g/dL (32.0-36.0) 08/24/20 05:47 RDW 14.1 % (11.5-14.0) H 08/24/20 05:47 Seg Neutrophils % Not Reportable 08/18/20 21:40 Chloride 111 mmol/L (98-107) H 08/24/20 05:47 Carbon Dioxide 19 mmol/L (22-30) L 08/24/20 05:47 Anion Gap 9 (5-19) 08/24/20 05:47 Est GFR ( Amer) 54 (>60) L 08/24/20 05:47 Glucose 56 mg/dL (75-110) L 08/24/20 05:47 Lactic Acid 1.2 mmol/L (0.7-2.1) 08/24/20 20:28 Calcium 8.2 mg/dL (8.4-10.2) L 08/24/20 05:47 Magnesium 2.1 mg/dL (1.6-2.3) 08/20/20 07:30 Total Bilirubin 0.5 mg/dL (0.2-1.3) 08/24/20 05:47 AST 30 U/L (14-36) 08/24/20 05:47 Alkaline Phosphatase 91 U/L (38-126) 08/24/20 05:47 Total Protein 5.9 g/dL (6.3-8.2) L 08/24/20 05:47 Albumin 2.6 g/dL (3.5-5.0) L 08/24/20 05:47 Lipase 34.0 U/L (23-300) 08/18/20 21:40 Urine Color YELLOW 08/22/20 08:00 Urine Appearance SLIGHTLY-CLOUDY 08/22/20 08:00 Urine pH 5.0 (5.0-9.0) 08/22/20 08:00 Ur Specific [place] 1.013 08/22/20 08:00 Urine Protein >=500 mg/dL (NEGATIVE) H 08/22/20 08:00 Urine Glucose (UA) >=500 mg/dL (NEGATIVE) H 08/22/20 08:00 Urine Ketones TRACE mg/dL (NEGATIVE) H 08/22/20 08:00 Urine Blood MODERATE (NEGATIVE) H 08/22/20 08:00 Urine Nitrite NEGATIVE (NEGATIVE) 08/22/20 08:00 Ur Leukocyte Esterase TRACE (NEGATIVE) H 08/22/20 08:00 Urine WBC (Auto) 34 /HPF 08/22/20 08:00 Urine RBC (Auto) 15 /HPF 08/22/20 08:00 08/18/20 08/19/20 08/19/20 21:40 00:48 06:15 Troponin I 0.060 0.060 0.039 08/19/20 08/20/20 17:45 00:58 Troponin I 0.036 0.030 Microbiology: Blood cultures 08/19 E coli 08/21 NGTD Urine culture 08/19 E coli Radiology: Abdomen/Pelvis CT 08/22/20 00:00 IMPRESSION: 1. No acute intra-abdominal abnormality. 2. Colonic diverticulosis without diverticulitis. Assessment and Recommendations: Patient evaluated due to E coli bacteremia due to pyelonephritis in the setting of uncontrolled DM. Blood cultures have cleared, leukocytosis stable, acute kidney injury has resolved. New CT scan without signs of worsening perinephric stranding. Leukocytosis is likely multifactorial due to infection, demand ischemia. This will likely improve. She will need 14 days of antibiotic therapy for pyelonephritis. She has already received 5, therefore will need 9 more days of therapy. Can de escalate to ceftriaxone 2g iv daily. If ready to be discharged prior to completion of therapy, can transition to ciprofloxacin 500 mg bid to complete therapy. Please call if questions. Fifi Alvarado MD [facility] [phone]
[2020-08-24] MEDS: ATORVASTATIN CALCIUM 40 MG TABLET PO SCH (23:13)
[2020-08-24] MEDS: SIMVASTATIN 10 MG TABLET PO SCH (23:13)
[2020-08-24] MEDS: CEFEPIME HCL 2 GM in DEXTROSE 5%-WATER 50 ML IV SCH (23:14)
[2020-08-24] MEDS: EZETIMIBE 10 MG TABLET PO SCH (23:14)
[2020-08-25] MEDS: MORPHINE SULFATE 10 MG/ML INJ IV PRN (00:38)
[2020-08-25] MEDS: HYDRALAZINE HCL INJ/PF 20 MG/1 ML SDV IV PRN (00:44)
[2020-08-25] MEDS: PROMETHAZINE HCL INJ 25 MG/1 ML VIAL IV PRN ×3 (04:30→18:43)
[2020-08-25] MEDS: INSULIN LISPRO 100 UNIT/ML 3 ML VIAL SUBCUT SCH ×4 (08:30→22:54)
[2020-08-25] MEDS: ENOXAPARIN SODIUM INJ 80 MG/0.8 ML DISP.SYRIN SUBCUT SCH (11:01)
[2020-08-25] MEDS: FAMOTIDINE INJ/PF 20 MG/2 ML SDV IV SCH (11:02)
[2020-08-25] MEDS: CLOPIDOGREL BISULFATE 75 MG TABLET PO SCH (11:02)
[2020-08-25] MEDS: ASPIRIN 81 MG TABLET, CHEWABLE PO SCH (11:02)
[2020-08-25] MEDS: AMLODIPINE BESYLATE 10 MG TABLET PO SCH (11:03)
[2020-08-25] MEDS: LOSARTAN POTASSIUM 50 MG TABLET PO SCH (11:03)
[2020-08-25] MEDS: METOPROLOL TARTRATE 25 MG TABLET PO SCH ×2 (11:04→22:46)
[2020-08-25] MEDS: INSULIN GLARGINE,HUM.REC.ANLOG 1,000 UNIT/10 ML VIAL SUBCUT SCH (11:05)
[2020-08-25] MEDS: DOCUSATE SODIUM 100 MG CAPSULE PO SCH ×2 (12:10→17:12)
[2020-08-25] MEDS: CEFEPIME HCL 2 GM in DEXTROSE 5%-WATER 50 ML IV SCH ×2 (12:23→22:47)
[2020-08-25] MEDS ORDERED: RINGERS SOLUTION,LACTATED 1,000 ML IV PRN (14:51)
--- NOTE | 2020-08-25 14:58 | PDOC PROGRESS REPORT ---
Subjective Progress Note for:: 08/25/20 Subjective:: JAEL ALVARES is a 75 year old female past medical history of CAD status post stent placement, diabetes, hypertension, tenting to ED complaining of generalized weakness, nausea, diarrhea, dysuria, abdominal pain, back pain, patient also stating that because of her weakness legs gave out and ultimately fell, denies any loss of consciousness or head trauma, patient was seen by her PCP about 2 days ago, was tested for COVID and strep, and was discharged home. Patient was noted to have leukocytosis with UA positive for leukocyte esterase and CT abdomen positive for bilateral stranding of the kidneys likely pyelonephritis. Patient denies any chest pain, shortness of breath, fever, chills, palpitation, lightheadedness. Hospital was consulted for admission.CT abdomen positive for bilateral fat stranding of the kidney suspicion for pyelonephritis. Denies any previous history of pyelonephritis, urogenital instrumentation, any urogenital anomalies, any nephrolithiasis. 08/19/20. She was initially started on Cefepime. Blood and urine culture grew E.coli. Cefepime continued. Dr. Chambers consulted for elevated troponin. Per DR. Chambers likely from ongoing infection 08/20/20. Abx switched to meropenem as patient still experiencing symptoms and persistent leukocytosis 08/21/20. Meropenem continued. 08/22/20. repeat CT abdomen no acute intra-abdominal abnormality. Colonic diverticulosis without diverticulitis. No hydronephrosis, no nephrolithiasis. 08/23/20. The patient was seen and examined at bedside. Still with generalized weakness and poor appetite, although she has been afebrile, no nausea/vomiting. WBC count 13.3. Cultures reviewed. Repeat Blood culture no growth 08/21/20. Previous culture E Coli pansensitive. Patient still appears weak looking, she would be D4 of meropenem today. 08/24/20. She was seen and examined at bedside. Still feels weak with nausea no vomiting. Afebrile. Blood cultures reviewed. WBC count went up slightly. I changed her back to cefepime since she failed to clinically improved with 2 days of meropenem. Id consulted for abx guidance with failure to improve on meropenem despite being sensitive to it on both blood and urine culture. Reason For Visit: PYELONEPHRITIS,NAUSEA,VOMITING,ELEVATED TROPS Physical Exam Vital Signs: Temp Pulse Resp BP Pulse Ox 98.1 F 80 16 150/70 H 97 08/25/20 10:00 08/25/20 14:30 08/25/20 14:30 08/25/20 04:00 08/25/20 14:30 Intake & Output 08/24/20 08/25/20 08/26/20 06:59 06:59 06:59 Intake Total 2261 1170 Output Total 3 Balance 2258 1170 Weight 85.5 kg 85.3 kg General appearance: PRESENT: no acute distress, cooperative Head exam: PRESENT: atraumatic, normocephalic Eye exam: PRESENT: EOMI, PERRLA Mouth exam: PRESENT: moist Neck exam: PRESENT: full ROM Respiratory exam: PRESENT: clear to auscultation [place], symmetrical, unlabored, wheezes. ABSENT: rales Cardiovascular exam: PRESENT: RRR, +S1, +S2 Pulses: PRESENT: +2 pedal pulses bilateral GI/Abdominal exam: PRESENT: normal bowel sounds, soft. ABSENT: rebound, tender ness Extremities exam: PRESENT: full ROM Musculoskeletal exam: PRESENT: full ROM Neurological exam: PRESENT: alert, awake, oriented to person, oriented to place, oriented to time, oriented to situation Skin exam: PRESENT: normal color Results Laboratory Results: 08/24/20 05:47 08/24/20 05:47 08/24/20 20:28 Lactic Acid 1.2 08/24/20 20:28 Blood Blood Culture (PCR) - Final 08/18/20 08/19/20 08/19/20 21:40 00:48 06:15 Troponin I 0.060 0.060 0.039 08/19/20 08/20/20 17:45 00:58 Troponin I 0.036 0.030 Impressions: Abdomen/Pelvis CT 08/22/20 00:00 IMPRESSION: 1. No acute intra-abdominal abnormality. 2. Colonic diverticulosis without diverticulitis. Assessment and Plan - Diagnosis (1) Pyelonephritis Is this a current diagnosis for this admission?: Yes Plan: Presented with leukocytosis, abdominal pain, bilateral CVA. Hematuria on UA. CT abdomen positive for bilateral fat stranding of the kidney suspicion for pyelonephritis. Denies any previous history of pyelonephritis, urogenital instrumentation, any urogenital anomalies, any nephrolithiasis. Blood cultures 08/19 show pansensitive E. coli Urine culture show pansensitive E. coli Repeat blood cultures 08/21 negative at 48 hours. repeat blood culture 08/24 growing gram positive rods 1 bottle likely a contaminant Received IV Cefepime x1 day; changed to Meropenem due to persistent leukocytosis and acutely ill appearance. Meropenem D4 but she failed to clinically improve. I have ordered Flu test as well as this might cause her slow improvement and generalized malaise ID consulted. Recommend to de escalate to ceftriaxone. Switched her back to cefepime will de escalate tomorrow. Will stop Vanc Continue IV fluids Analgesics and antiemetics as needed. (2) Bacteremia due to Escherichia coli Is this a current diagnosis for this admission?: Yes Plan: Blood culture (08/19/2020) pansensitive E. coli in 1 set Repeat blood cultures (08/21/2020) negative at 48 hours. Blood cx 08/24 growing gram positive rods Patient received cefepime x1 days. Was transitioned to meropenem due to persistent leukocytosis and toxic appearance. Meropenem D4, still failing to show clinical improvement switched back to cefepime de escalate tomorrow stop vanc ID consulted (3) Diabetes Qualifiers: Diabetes mellitus type: type 2 Chronic kidney disease stage: stage 3 (moderate) Is this a current diagnosis for this admission?: Yes Plan: A1C 7.8% Continue to Lantus 60 units nightly. Patient is placed on a consistent carb diet. Accu-Cheks before meals and at bedtime with Humalog for sliding scale coverage. Hypoglycemia protocol in place. (4) Hypertension Is this a current diagnosis for this admission?: Yes Plan: Intermittently elevated Continue home regimen of amlodipine, telmisartan Continue metoprolol 50 mg q12 PRN IV hydralazine. (5) Elevated troponin Is this a current diagnosis for this admission?: Yes Plan: History of CAD status post stent placement. Denies any chest pain. Mildly elevated troponin; trending down and no longer following. No acute EKG change. Admit telemetry, DAPT, DINA, statins Discussed with Dr. Chambers; likely due to demand mismatch in the setting of worsening renal function. Stable/appropriate to delay cardiac consultation at this time; will re-consult as needed. (6) CAD (coronary artery disease) Qualifiers: Coronary Disease-Associated Artery/Lesion type: kaw artery Is this a current diagnosis for this admission?: Yes Plan: Denies any anginal stress, mildly elevated troponins, status post stent placement. Resume home meds. Outpatient PCP and cardiology follow-up. (7) [id number] kidney injury Qualifiers: Acute renal failure type: unspecified Chronic kidney disease stage: stage 4 (severe) Qualified Code(s): N17.9 - Acute kidney failure, unspecified; N18.4 - Chronic kidney disease, stage 4 (severe) Is this a current diagnosis for this admission?: Yes (8) Left lower quadrant abdominal pain Is this a current diagnosis for this admission?: Yes Plan: CT abdomen pelvis with oral contrast revealed diverticulosis without diverticulitis. No other acute findings. It is possible that her LLQ pain is related to pyelonephritis; she does have some left neck pain. Also possible the patient has undetected kidney stone. Cultures and antibiotics as above. Antiemetics and analgesics as needed. Encourage p.o. fluids; eat as tolerated. (9) Fall Qualifiers: Encounter type: initial encounter Qualified Code(s): W19.XXXA - Unspecified fall, initial encounter Is this a current diagnosis for this admission?: Yes Plan: Mechanical fall, denies any loss of consciousness, palpitation, lightheadedness, or head trauma. Monitor for fall, supportive measures. PT consultation. (10) Pain in left leg Is this a current diagnosis for this admission?: Yes Plan: - complaining of left leg pain - heating pads ordered - success for pain - US doppler ordered to rule out DVT - Time Time Spent with patient: 25-34 minutes Anticipated Discharge Disposition: Home, Self Care - to be determined Anticipated Discharge Timeframe: to be determined
--- NOTE | 2020-08-25 16:23 | RADIOLOGY REPORT (SQ) ---
EXAM DESCRIPTION: CHEST 2 VIEWS IMAGES COMPLETED DATE/TIME: 08/25/2020 4:03 pm REASON FOR STUDY: SOB COMPARISON: 08/18/2020 EXAM PARAMETERS: NUMBER OF VIEWS: two views TECHNIQUE: Digital Frontal and Lateral radiographic views of the chest acquired. RADIATION DOSE: NA LIMITATIONS: none FINDINGS: LUNGS AND PLEURA: Increased perihilar lung markings. Left lung base atelectasis. Small b ilateral pleural effusions. No pneumothorax. MEDIASTINUM AND HILAR STRUCTURES: No masses or contour abnormalities. HEART AND VASCULAR STRUCTURES: Mild cardiomegaly with central vascular congestion. BONES: No acute findings. HARDWARE: None in the chest. OTHER: No other significant finding. IMPRESSION: Constellation of findings suggests early CHF exacerbation. Infectious etiology is not e xcluded. TECHNICAL DOCUMENTATION: JOB ID: [id number] [employer]- All Rights Reserved Reading location - IP/workstation name: [email or web address]
[2020-08-25] MEDS: HYDROCODONE/ACETAMINOPHEN 5-325 MG TABLET PO PRN ×2 (17:10→23:05)
[2020-08-25 17:32] LABS: MEAN CORPUSCULAR HEMOGLOBIN 28.5 pg (27.0-33.4); MEAN CORPUSCULAR HGB CONC 34.3 g/dL (32.0-36.0); MEAN CORPUSCULAR VOLUME 83 fl (80-97); PLATELET COUNT 373 10^3/uL (150-450); RED BLOOD COUNT 4.21 10^6/uL (3.72-5.28); RED CELL DISTRIBUTION WIDTH 14.2 % (11.5-14.0); WHITE BLOOD COUNT 15.9 10^3/uL (4.0-10.5)
[2020-08-25 17:48] LABS: ANION GAP 10 (5-19); BLOOD UREA NITROGEN 13 mg/dL (7-20); CALCIUM 8.6 mg/dL (8.4-10.2); CARBON DIOXIDE 21 mmol/L (22-30); CHLORIDE 105 mmol/L (98-107); GLUCOSE 151 mg/dL (75-110); POTASSIUM 3.8 mmol/L (3.6-5.0)
[2020-08-25 18:34] LABS: ABSOLUTE LYMPHOCYTES# (MANUAL) 1.4 10^3/uL (0.5-4.7); ABSOLUTE MONOCYTES # (MANUAL) 0.6 10^3/uL (0.1-1.4); BASOPHILS % (MANUAL) 1 % (0-2); EOSINOPHILS % (MANUAL) 1 % (0-6); LYMPHOCYTES % (MANUAL) 9 % (13-45); MONOCYTES % (MANUAL) 4 % (3-13); SEGMENTED NEUTROPHILS % (MAN) 85 % (42-78); TOTAL CELLS COUNTED 100
[2020-08-25 18:35] LABS: OVALOCYTES SLIGHT; PLATELET COMMENT ADEQUATE; SCHISTOCYTES SLIGHT
[2020-08-25 18:36] LABS: ANISOCYTOSIS SLIGHT
--- NOTE | 2020-08-25 19:17 | RADIOLOGY REPORT (SQ) ---
EXAM DESCRIPTION: VENOUS UNILATERAL LOWER IMAGES COMPLETED DATE/TIME: 08/25/2020 7:07 pm REASON FOR STUDY: left leg pain COMPARISON: None. TECHNIQUE: Dynamic and static pa scale and color images acquired of the left leg venous system. Se lected spectral images acquired with additional compression and augmentation maneuvers. The contralat eral common femoral vein and saphenofemoral junction were also imaged. Images stored on PACS. LIMITATIONS: None. FINDINGS: COMMON FEMORAL: Normal phasicity, compression and augmentation. No visualized echogenic ma terial on pa scale. No defects on color images. FEMORAL: Normal compression and augmentation. No visualized echogenic material on pa scale. No defe cts on color images. POPLITEAL: Normal compression, augmentation. No visualized echogenic material on pa scale. No defec ts on color images. CALF VESSELS: Normal compression, augmentation. No visualized echogenic material on pa scale. No de fects on color images. GSV and SSV: Normal compression, augmentation. No visualized echogenic material on pa scale. No def ects on color images. ANY DEEP VENOUS INSUFFICIENCY: Not evaluated. ANY EVIDENCE OF POPLITEAL CYST: No. OTHER: No other significant finding. CONTRALATERAL COMMON FEMORAL VEIN AND SAPHENOFEMORAL JUNCTION: Normal phasicity, compression and augmentation. No visualized echogenic material on pa scale. No de fects on color images. IMPRESSION: NO EVIDENCE DVT OR SVT IN THE LEFT LEG. TECHNICAL DOCUMENTATION: JOB ID: [id number] [employer]- All Rights Reserved Reading location - IP/workstation name: [email or web address]
[2020-08-25] MEDS: ATORVASTATIN CALCIUM 40 MG TABLET PO SCH (22:47)
[2020-08-25] MEDS: SIMVASTATIN 10 MG TABLET PO SCH (22:47)
[2020-08-25] MEDS: EZETIMIBE 10 MG TABLET PO SCH (22:47)
[2020-08-26 05:58] LABS: HEMATOCRIT 32.6 % (36.0-47.0); HEMOGLOBIN 11.5 g/dL (12.0-15.5); MEAN CORPUSCULAR HEMOGLOBIN 29.3 pg (27.0-33.4); MEAN CORPUSCULAR HGB CONC 35.3 g/dL (32.0-36.0); MEAN CORPUSCULAR VOLUME 83 fl (80-97); PLATELET COUNT 339 10^3/uL (150-450); RED BLOOD COUNT 3.92 10^6/uL (3.72-5.28); RED CELL DISTRIBUTION WIDTH 14.1 % (11.5-14.0); WHITE BLOOD COUNT 13.8 10^3/uL (4.0-10.5)
[2020-08-26] MEDS: INSULIN LISPRO 100 UNIT/ML 3 ML VIAL SUBCUT SCH ×4 (09:00→22:44)
[2020-08-26] MEDS ORDERED: FUROSEMIDE INJ/PF 40 MG/4 ML SDV IV ONE (09:00)
[2020-08-26] MEDS: LEVOFLOXACIN 750 MG/D5W RTU 750 MG/150 ML RTUPB IV SCH (10:51)
[2020-08-26] MEDS: ONDANSETRON HCL INJ/PF 4 MG/2 ML SDV IV PRN (10:59)
[2020-08-26 11:12] LABS: APPEARANCE,URINE CLEAR; BILIRUBIN,URINE NEGATIVE (NEGATIVE); COLOR,URINE YELLOW; GLUCOSE, URINE 50 mg/dL (NEGATIVE); KETONES,URINE NEGATIVE (NEGATIVE); LEUKOCYTE ESTERASE,URINE TRACE (NEGATIVE); NITRITE,URINE NEGATIVE (NEGATIVE); PROTEIN,URINE >=500 mg/dL (NEGATIVE); URINE SPECIFIC GRAVITY 1.013; UROBILINOGEN,URINE NEGATIVE mg/dL (<2.0)
[2020-08-26] MEDS: ENOXAPARIN SODIUM INJ 80 MG/0.8 ML DISP.SYRIN SUBCUT SCH (11:22)
[2020-08-26] MEDS: LOSARTAN POTASSIUM 50 MG TABLET PO SCH (11:34)
[2020-08-26] MEDS: DOCUSATE SODIUM 100 MG CAPSULE PO SCH ×2 (11:34→18:37)
[2020-08-26] MEDS: FAMOTIDINE 20 MG TABLET PO SCH (11:34)
[2020-08-26] MEDS: ASPIRIN 81 MG TABLET, CHEWABLE PO SCH (11:34)
[2020-08-26] MEDS: METOPROLOL TARTRATE 25 MG TABLET PO SCH ×2 (11:35→22:42)
[2020-08-26] MEDS: CLOPIDOGREL BISULFATE 75 MG TABLET PO SCH (11:35)
[2020-08-26] MEDS: AMLODIPINE BESYLATE 10 MG TABLET PO SCH (11:35)
[2020-08-26] MEDS: INSULIN GLARGINE,HUM.REC.ANLOG 1,000 UNIT/10 ML VIAL SUBCUT SCH (11:47)
--- NOTE | 2020-08-26 12:51 | PDOC PROGRESS REPORT ---
Subjective Progress Note for:: 08/26/20 Subjective:: JAEL ALVARES is a 75 year old female past medical history of CAD status post stent placement, diabetes, hypertension, tenting to ED complaining of generalized weakness, nausea, diarrhea, dysuria, abdominal pain, back pain, patient also stating that because of her weakness legs gave out and ultimately fell, denies any loss of consciousness or head trauma, patient was seen by her PCP about 2 days ago, was tested for COVID and strep, and was discharged home. Patient was noted to have leukocytosis with UA positive for leukocyte esterase and CT abdomen positive for bilateral stranding of the kidneys likely pyelonephritis. Patient denies any chest pain, shortness of breath, fever, chills, palpitation, lightheadedness. Hospital was consulted for admission.CT abdomen positive for bilateral fat stranding of the kidney suspicion for pyelonephritis. Denies any previous history of pyelonephritis, urogenital instrumentation, any urogenital anomalies, any nephrolithiasis. 08/19/20. She was initially started on Cefepime. Blood and urine culture grew E.coli. Cefepime continued. Dr. Chambers consulted for elevated troponin. Per DR. Chambers likely from ongoing infection 08/20/20. Abx switched to meropenem as patient still experiencing symptoms and persistent leukocytosis 08/21/20. Meropenem continued. 08/22/20. repeat CT abdomen no acute intra-abdominal abnormality. Colonic diverticulosis without diverticulitis. No hydronephrosis, no nephrolithiasis. 08/23/20. The patient was seen and examined at bedside. Still with generalized weakness and poor appetite, although she has been afebrile, no nausea/vomiting. WBC count 13.3. Cultures reviewed. Repeat Blood culture no growth 08/21/20. Previous culture E Coli pansensitive. Patient still appears weak looking, she would be D4 of meropenem today. 08/24/20. She was seen and examined at bedside. Still feels weak with nausea no vomiting. Afebrile. Blood cultures reviewed. WBC count went up slightly. I changed her back to cefepime since she failed to clinically improved with 2 days of meropenem. ID consulted for abx guidance with failure to improve on meropenem despite being sensitive to it on both blood and urine culture. 08/26/20. She was seen and examined at bedside. Feels marginally better but still weak and nauseous, no vomiting. She remains afebrile. CXR done showed mild pulmonary congestion. IV fluids was stopped and she was given 1 dose of lasix. IV antibiotics de escalated to levaquin Iv daily. Echo ordered. Reason For Visit: PYELONEPHRITIS,NAUSEA,VOMITING,ELEVATED TROPS Physical Exam Vital Signs: Temp Pulse Resp BP Pulse Ox 98.2 F 61 17 158/68 H 94 08/26/20 10:00 08/26/20 07:00 08/25/20 23:12 08/25/20 23:12 08/25/20 23:12 Intake & Output 08/25/20 08/26/20 08/27/20 06:59 06:59 06:59 Intake Total 1170 370 Balance 1170 370 Weight 85.3 kg 85.8 kg General appearance: PRESENT: cooperative, mild distress Head exam: PRESENT: atraumatic, normocephalic Eye exam: PRESENT: EOMI, PERRLA Mouth exam: PRESENT: moist Neck exam: PRESENT: full ROM Respiratory exam: PRESENT: symmetrical, wheezes. ABSENT: crackles, rales, tachypnea Cardiovascular exam: PRESENT: RRR, +S1, +S2 Pulses: PRESENT: +2 pedal pulses bilateral GI/Abdominal exam: PRESENT: normal bowel sounds, soft. ABSENT: rebound, tenderness Extremities exam: PRESENT: full ROM Musculoskeletal exam: PRESENT: full ROM Neurological exam: PRESENT: alert, awake, oriented to person, oriented to place, oriented to time, oriented to situation Psychiatric exam: PRESENT: normal mood Skin exam: PRESENT: normal color Results Laboratory Results: 08/26/20 05:43 08/25/20 16:36 08/25/20 08/25/20 08/26/20 16:36 16:36 05:43 WBC 15.9 H 13.8 H RBC 4.21 3.92 Hgb 12.0 11.5 L Hct 35.0 L 32.6 L MCV 83 83 MCH 28.5 29.3 MCHC 34.3 35.3 RDW 14.2 H 14.1 H Plt Count 373 339 Seg Neutrophils % Not Reportable Sodium 135.6 L Potassium 3.8 Chloride 105 Carbon Dioxide 21 L Anion Gap 10 BUN 13 Creatinine 1.06 Est GFR ( Amer) > 60 Glucose 151 H Calcium 8.6 Urine Color Urine Appearance Urine pH Ur Specific [place] Urine Protein Urine Glucose (UA) Urine Ketones Urine Blood Urine Nitrite Ur Leukocyte Esterase Urine WBC (Auto) Urine RBC (Auto) 08/26/20 10:28 WBC RBC Hgb Hct MCV MCH MCHC RDW Plt Count Seg Neutrophils % Sodium Potassium Chloride Carbon Dioxide Anion Gap BUN Creatinine Est GFR ( Amer) Glucose Calcium Urine Color YELLOW Urine Appearance CLEAR Urine pH 6.0 Ur Specific [place] 1.013 Urine Protein >=500 H Urine Glucose (UA) 50 H Urine Ketones NEGATIVE Urine Blood SMALL H Urine Nitrite NEGATIVE Ur Leukocyte Esterase TRACE H Urine WBC (Auto) 12 Urine RBC (Auto) 25 08/24/20 20:28 Blood Blood Culture (PCR) - Final 08/21/20 06:35 Blood Blood Culture - Final NO GROWTH IN 5 DAYS 08/21/20 05:49 Blood Blood Culture - Final NO GROWTH IN 5 DAYS 08/18/20 08/19/20 08/19/20 21:40 00:48 06:15 Troponin I 0.060 0.060 0.039 NT-Pro-B Natriuret Pep 08/19/20 08/20/20 08/26/20 17:45 00:58 05:43 Troponin I 0.036 0.030 NT-Pro-B Natriuret Pep 4260 H Impressions: Abdomen/Pelvis CT 08/22/20 00:00 IMPRESSION: 1. No acute intra-abdominal abnormality. 2. Colonic diverticulosis without diverticulitis. Chest X-Ray 08/25/20 00:00 IMPRESSION: Constellation of findings suggests early CHF exacerbation. Infectious etiology is not excluded. Venous Doppler Study 08/25/20 00:00 IMPRESSION: NO EVIDENCE DVT OR SVT IN THE LEFT LEG. Assessment and Plan - Diagnosis (1) Pyelonephritis Is this a current diagnosis for this admission?: Yes Plan: Presented with leukocytosis, abdominal pain, bilateral CVA. Hematuria on UA. CT abdomen positive for bilateral fat stranding of the kidney suspicion for pyelonephritis. Denies any previous history of pyelonephritis, urogenital instrumentation, any urogenital anomalies, any nephrolithiasis. Blood cultures 08/19 show pansensitive E. coli Urine culture show pansensitive E. coli Repeat blood cultures 08/21 negative at 48 hours. repeat blood culture 08/24 growing gram positive rods 1 bottle likely a contaminant Received IV Cefepime x1 day; changed to Meropenem due to persistent leukocytosis and acutely ill appearance. Meropenem D4 but she failed to clinically improve. I have ordered Flu test as well as this might cause her slow improvement and generalized malaise ID consulted. De escalated to Levaquin IV fluids discontinued due to congestion Analgesics and antiemetics as needed. (2) Bacteremia due to Escherichia coli Is this a current diagnosis for this admission?: Yes Plan: Blood culture (08/19/2020) pansensitive E. coli in 1 set Repeat blood cultures (08/21/2020) negative at 48 hours. Blood cx 08/24 growing bacillus species not anthracis Patient received cefepime x1 days. Was transitioned to meropenem due to persistent leukocytosis and toxic appearance. Meropenem D5, still failing to show clinical improvement De escalated to levaquin. Meropenem/Vanc stopped ID consulted (3) Diabetes Qualifiers: Diabetes mellitus type: type 2 Chronic kidney disease stage: stage 3 (moderate) Is this a current diagnosis for this admission?: Yes Plan: A1C 7.8% Continue to Lantus 60 units nightly. Patient is placed on a consistent carb diet. Accu-Cheks before meals and at bedtime with Humalog for sliding scale coverage. Hypoglycemia protocol in place. (4) Hypertension Is this a current diagnosis for this admission?: Yes Plan: Intermittently elevated Continue home regimen of amlodipine, telmisartan Continue metoprolol 50 mg q12 PRN IV hydralazine. (5) Elevated troponin Is this a current diagnosis for this admission?: Yes Plan: History of CAD status post stent placement. Denies any chest pain. Mildly elevated troponin; trending down and no longer following. No acute EKG change. Admit telemetry, DAPT, DINA, statins Discussed with Dr. Chambers; likely due to demand mismatch in the setting of worsening renal function. Stable/appropriate to delay cardiac consultation at this time; will re-consult as needed. (6) CAD (coronary artery disease) Qualifiers: Coronary Disease-Associated Artery/Lesion type: [place] artery Is this a current diagnosis for this admission?: Yes Plan: Denies any anginal stress, mildly elevated troponins, status post stent placement. Aspirin, plavix, statin Outpatient PCP and cardiology follow-up. (7) [id number] kidney injury Qualifiers: Acute renal failure type: unspecified Chronic kidney disease stage: stage 4 (severe) Qualified Code(s): N17.9 - Acute kidney failure, unspecified; N18.4 - Chronic kidney disease, stage 4 (severe) Is this a current diagnosis for this admission?: Yes Plan: Resolved. Likely prerenal r/t dehydration, acute infection, hypotension, sepsis. 08/2019: eGFR 24, CR 1.99 Admitted w/ eGFR 16 and Cr 2.93; now eGFR 27 and Cr 1.78 Received appropriate IVF resuscitation. Continue treatment of pyelonephritis as above. Avoid nephrotoxic medications as able. Follow chemistries. (8) Left lower quadrant abdominal pain Is this a current diagnosis for this admission?: Yes Plan: CT abdomen pelvis with oral contrast revealed diverticulosis without diverticulitis. No other acute findings. It is possible that her LLQ pain is related to pyelonephritis; she does have some left neck pain. Also possible the patient has undetected kidney stone. Cultures and antibiotics as above. Antiemetics and analgesics as needed. Encourage p.o. fluids; eat as tolerated. (9) Pain in left leg Is this a current diagnosis for this admission?: Yes Plan: - complaining of left leg pain - heating pads ordered - Supersolid for pain - US doppler negative for DVT - Time Time Spent with patient: 25-34 minutes Medications reviewed and adjusted accordingly: Yes Anticipated Discharge Disposition: Home, Self Care Anticipated Discharge Timeframe: to be determined
[2020-08-26] MEDS: PROMETHAZINE HCL INJ 25 MG/1 ML VIAL IV PRN ×2 (13:54→22:42)
[2020-08-26] MEDS: HYDROCODONE/ACETAMINOPHEN 5-325 MG TABLET PO PRN ×2 (14:57→22:42)
--- NOTE | 2020-08-26 20:18 | XCELERA REPORT ---
[address] [address] Transthoracic Echocardiogram Report Name: JAEL ALVARES Age: 75 yrs Gender: Female : 1945 Patient Status: [facility] Study Date: 08/26/2020 11:37 AM Height: 65 in Weight: 189 lb BSA: 1.9 m2 Procedure: A complete two-dimensional transthoracic echocardiogram was performed (2D, M-mode, spectral and color flow Doppler). The study was technically adequate with some images being suboptimal in quality. Reason For Study: elevated BNP Ordering Physician: WIN MADRIGAL Performed By: Lisa Morgan Interpretation Summary LEFT VENTRICLE: LV Systolic function: LVEF is felt to be within normal limits. Best estimate is approximately LVEF is 60 to 65%. LV Diastolic Function: Grade II diastolic dysfunction noted. Wall motion: No definite regional wall motion abnormalities are noted. Left ventricular chamber size: is within normal limit. Left ventricular wall thickness: is increased indicative of Mild LVH. RIGHT VENTRICLE: RV systolic function: is felt to be within normal limit. Right Ventricle Size: is within normal limits. LEFT ATRIUM size: is wnl. RIGHT ATRIUM size: is within normal limit. INTER ATRIAL SEPTUM: No definite atrial septal defect noted however a small PFO could be missed. AORTIC ROOT: seems to be within normal limits. ASCENDING AORTA: is not well visualized. INFERIOR VENA CAVA: was not well visualized. VALVES: MITRAL VALVE: Leaflets are mildly thickened. Mobility seems to be within normal limits. Mitral Regurgitation: Trace mitral regurgitation is noted. Mitral Stenosis: No mitral stenosis noted. Mitral valve prolapse: none noted. AORTIC VALVE: seems to be trileaflet with mild thickening but adequate excursion. Aortic stenosis: No aortic stenosis noted. Aortic regurgitation: No aortic incompetence noted. TRICUSPID VALVE: mobility and structures within normal limit. Tricuspid stenosis: no tricuspid stenosis noted. Tricuspid regurgitation: trace to mild tricuspid regurgitation noted.. Estimated RVSP: best estimated RVSP approximately 40 to 45 mmHg consistent with mild to moderate pulmonary hypertension. PULMONARY VALVE: was not well visualized but no significant abnormalities suspected. Pulmonary stenosis: no pulmonary stenosis noted. Pulmonary regurgitation: no significant pulmonary regurgitation noted. MASSES AND THROMBUS: No definite intracardiac thrombus or masses are noted. PERICARDIUM: No pericardial effusion was noted. IMPRESSION: 1. Normal LVEF. 2. Mild LVH noted. 3. Grade II [mild] Diastolic Dysfunction noted. 4. Trace to mild Tricuspid regurgitation noted. RVSP approximately 40 to 45 mmHg consistent with mild to moderate pulmonary hypertension. MMode/2D Measurements & Calculations RVDd: 2.1 cm LVIDd: 4.5 cm FS: 43.7 % Ao root diam: 2.4 cm IVSd: 1.1 cm LVIDs: 2.5 cm EDV(Teich): 92.8 ml Ao root area: 4.4 cm2 LVPWd: 1.1 cm ESV(Teich): 23.2 ml LA dimension: 2.9 cm EF(Teich): 75.1 % Doppler Measurements & Calculations MV E max josephine: MV P1/2t max josephine: Ao V2 max: AI max josephine: 88.8 cm/sec 89.8 cm/sec 198.6 cm/sec 428.9 cm/sec MV A max josephine: MV P1/2t: 99.1 msec Ao max PG: AI max P.6 mmHg 121.4 cm/sec MVA(P1/2t): 2.2 cm2 15.8 mmHg AI dec slope: MV E/A: 0.73 MV dec slope: 203.3 cm/sec2 AI P1/2t: 618.1 msec 265.5 cm/sec2 MV dec time: 0.32 sec LV V1 max PG: PA V2 max: TR max josephine: AV P1/2t-pr_phl: 7.6 mmHg 106.6 cm/sec 308.1 cm/sec 618.1 msec LV V1 max: PA max P.5 mmHg TR max P.6 cm/sec 38.0 mmHg MV P1/2t-pr_phl: 99.1 msec : WIN MADRIGAL Shyamal
[2020-08-26] MEDS: EZETIMIBE 10 MG TABLET PO SCH (22:42)
[2020-08-26] MEDS: ATORVASTATIN CALCIUM 40 MG TABLET PO SCH (22:42)
[2020-08-26] MEDS: HEPARIN SOD (PORCINE) 5,000 UNIT/ML 1 ML VIAL SUBCUT SCH (22:43)
[2020-08-27] MEDS ORDERED: INFLUENZA QUAD (6MOS+) 2020-21 VAC 0.5 ML SYR IM ONE (08:00)
[2020-08-27 10:10] LABS: ABSOLUTE BASOPHILS # (AUTO) 0.1 10^3/uL (0.0-0.2); ABSOLUTE EOSINOPHILS # (AUTO) 0.2 10^3/uL (0.0-0.6); ABSOLUTE LYMPHOCYTES (AUTO) 2.1 10^3/uL (0.5-4.7); ABSOLUTE MONOCYTES (AUTO) 1.2 10^3/uL (0.1-1.4); EOSINOPHILS % (AUTO) 1.1 % (0-6); HEMATOCRIT 35.2 % (36.0-47.0); HEMOGLOBIN 12.1 g/dL (12.0-15.5); LYMPHOCYTES % (AUTO) 14.3 % (13-45); MEAN CORPUSCULAR HEMOGLOBIN 28.7 pg (27.0-33.4); MEAN CORPUSCULAR HGB CONC 34.5 g/dL (32.0-36.0); MEAN CORPUSCULAR VOLUME 83 fl (80-97); MONOCYTES % (AUTO) 8.4 % (3-13); PLATELET COUNT 377 10^3/uL (150-450); RED BLOOD COUNT 4.23 10^6/uL (3.72-5.28); RED CELL DISTRIBUTION WIDTH 13.9 % (11.5-14.0); SEGMENTED NEUTROPHILS % (AUTO) 75.2 % (42-78); TOTAL CELLS COUNTED % (AUTO) 100 %; WHITE BLOOD COUNT 14.7 10^3/uL (4.0-10.5)
[2020-08-27 10:20] LABS: ALBUMIN 2.7 g/dL (3.5-5.0); ALKALINE PHOSPHATASE 92 U/L (38-126); ANION GAP 11 (5-19); ASPARTATE AMINO TRANSFERASE 23 U/L (14-36); BILIRUBIN,DIRECT 0.3 mg/dL (0.0-0.4); BILIRUBIN,TOTAL 0.7 mg/dL (0.2-1.3); BLOOD UREA NITROGEN 16 mg/dL (7-20); CALCIUM 8.9 mg/dL (8.4-10.2); CARBON DIOXIDE 24 mmol/L (22-30); CHLORIDE 99 mmol/L (98-107); GLUCOSE 190 mg/dL (75-110); NEONATAL BILIRUBIN RESULT 0.3 mg/dL (0.1-1.1); POTASSIUM 3.8 mmol/L (3.6-5.0); TOTAL PROTEIN 5.7 g/dL (6.3-8.2)
[2020-08-27] MEDS: INSULIN LISPRO 100 UNIT/ML 3 ML VIAL SUBCUT SCH ×4 (10:45→22:33)
[2020-08-27] MEDS: ASPIRIN 81 MG TABLET, CHEWABLE PO SCH (10:49)
[2020-08-27] MEDS: LEVOFLOXACIN 750 MG/D5W RTU 750 MG/150 ML RTUPB IV SCH (10:49)
[2020-08-27] MEDS: METOPROLOL TARTRATE 25 MG TABLET PO SCH ×2 (10:49→22:34)
[2020-08-27] MEDS: AMLODIPINE BESYLATE 10 MG TABLET PO SCH (10:49)
[2020-08-27] MEDS: FAMOTIDINE 20 MG TABLET PO SCH (10:49)
[2020-08-27] MEDS: LOSARTAN POTASSIUM 50 MG TABLET PO SCH (10:49)
[2020-08-27] MEDS: CLOPIDOGREL BISULFATE 75 MG TABLET PO SCH (10:49)
[2020-08-27] MEDS: HEPARIN SOD (PORCINE) 5,000 UNIT/ML 1 ML VIAL SUBCUT SCH ×2 (10:50→22:33)
[2020-08-27] MEDS: DOCUSATE SODIUM 100 MG CAPSULE PO SCH ×2 (11:26→17:53)
[2020-08-27] MEDS: HYDROCODONE/ACETAMINOPHEN 5-325 MG TABLET PO PRN ×2 (12:16→22:34)
[2020-08-27] MEDS: INSULIN GLARGINE,HUM.REC.ANLOG 1,000 UNIT/10 ML VIAL SUBCUT SCH (13:22)
--- NOTE | 2020-08-27 17:01 | PDOC PROGRESS REPORT ---
Subjective Progress Note for:: 08/27/20 Subjective:: JAEL ALVARES is a 75 year old female past medical history of CAD status post stent placement, diabetes, hypertension, tenting to ED complaining of generalized weakness, nausea, diarrhea, dysuria, abdominal pain, back pain, patient also stating that because of her weakness legs gave out and ultimately fell, denies any loss of consciousness or head trauma, patient was seen by her PCP about 2 days ago, was tested for COVID and strep, and was discharged home. Patient was noted to have leukocytosis with UA positive for leukocyte esterase and CT abdomen positive for bilateral stranding of the kidneys likely pyelonephritis. Patient denies any chest pain, shortness of breath, fever, chills, palpitation, lightheadedness. Hospital was consulted for admission.CT abdomen positive for bilateral fat stranding of the kidney suspicion for pyelonephritis. Denies any previous history of pyelonephritis, urogenital instrumentation, any urogenital anomalies, any nephrolithiasis. 08/19/20. She was initially started on Cefepime. Blood and urine culture grew E.coli. Cefepime continued. Dr. Chambers consulted for elevated troponin. Per DR. Chambers likely from ongoing infection 08/20/20. Abx switched to meropenem as patient still experiencing symptoms and persistent leukocytosis 08/21/20. Meropenem continued. 08/22/20. repeat CT abdomen no acute intra-abdominal abnormality. Colonic diverticulosis without diverticulitis. No hydronephrosis, no nephrolithiasis. 08/23/20. The patient was seen and examined at bedside. Still with generalized weakness and poor appetite, although she has been afebrile, no nausea/vomiting. WBC count 13.3. Cultures reviewed. Repeat Blood culture no growth 08/21/20. Previous culture E Coli pansensitive. Patient still appears weak looking, she would be D4 of meropenem today. 08/24/20. She was seen and examined at bedside. Still feels weak with nausea no vomiting. Afebrile. Blood cultures reviewed. WBC count went up slightly. I changed her back to cefepime since she failed to clinically improved with 2 days of meropenem. ID consulted for abx guidance with failure to improve on meropenem despite being sensitive to it on both blood and urine culture. 08/26/20. She was seen and examined at bedside. Feels marginally better but still weak and nauseous, no vomiting. She remains afebrile. CXR done showed mild pulmonary congestion. IV fluids was stopped and she was given 1 dose of lasix. IV antibiotics de escalated to levaquin Iv daily. Echo ordered. 08/27/20. She was seen and examined at bedside. She was able to eat her breakfast this morning and feels less nauseous. She remains afebrile. WBC up to 14.7 today. Creatinine 1.44. I have stopped her IV fluids due to beginning congestion. Echo showed grade II diastolic dysfunction. I encouraged her to drink fluids since her IV fluids were stopped. Her clinical improvement have been slow. She also complains of left leg pain, US was negative for DVT and her pulses are good. Pain is relieved by heating pads and norco. Reason For Visit: PYELONEPHRITIS,NAUSEA,VOMITING,ELEVATED TROPS Physical Exam Vital Signs: Temp Pulse Resp BP Pulse Ox 98.4 F 70 16 180/62 H 95 08/27/20 16:11 08/27/20 16:11 08/27/20 16:11 08/27/20 16:11 08/27/20 16:11 Intake & Output 08/26/20 08/27/20 08/28/20 06:59 06:59 06:59 Intake Total 370 880 240 Output Total 500 Balance 370 380 240 Weight 85.8 kg General appearance: PRESENT: no acute distress, cooperative Head exam: PRESENT: atraumatic, normocephalic Eye exam: PRESENT: EOMI, PERRLA Mouth exam: PRESENT: moist Neck exam: PRESENT: full ROM Respiratory exam: PRESENT: rales, symmetrical. ABSENT: tachypnea, unlabored, wheezes Cardiovascular exam: PRESENT: RRR, +S1, +S2 Pulses: PRESENT: +2 pedal pulses bilateral GI/Abdominal exam: PRESENT: normal bowel sounds, soft. ABSENT: rebound, ten derness Extremities exam: PRESENT: full ROM Musculoskeletal exam: PRESENT: full ROM Neurological exam: PRESENT: alert, awake, oriented to person, oriented to place, oriented to time Psychiatric exam: PRESENT: normal mood Skin exam: PRESENT: normal color Results Laboratory Results: 08/27/20 09:01 08/27/20 09:19 08/27/20 08/27/20 09:01 09:19 WBC 14.7 H RBC 4.23 Hgb 12.1 Hct 35.2 L MCV 83 MCH 28.7 MCHC 34.5 RDW 13.9 Plt Count 377 Seg Neutrophils % 75.2 Sodium 134.4 L Potassium 3.8 Chloride 99 Carbon Dioxide 24 Anion Gap 11 BUN 16 Creatinine 1.44 H Est GFR ( Amer) 43 L Glucose 190 H Calcium 8.9 Total Bilirubin 0.7 AST 23 Alkaline Phosphatase 92 Total Protein 5.7 L Albumin 2.7 L 08/24/20 20:28 Blood Blood Culture (PCR) - Final 08/24/20 20:28 Blood Blood Culture - Final Bacillus Sp. Not Anthracis 08/18/20 08/19/20 08/19/20 21:40 00:48 06:15 Troponin I 0.060 0.060 0.039 NT-Pro-B Natriuret Pep 08/19/20 08/20/20 08/26/20 17:45 00:58 05:43 Troponin I 0.036 0.030 NT-Pro-B Natriuret Pep 4260 H Impressions: Abdomen/Pelvis CT 08/22/20 00:00 IMPRESSION: 1. No acute intra-abdominal abnormality. 2. Colonic diverticulosis without diverticulitis. Chest X-Ray 08/25/20 00:00 IMPRESSION: Constellation of findings suggests early CHF exacerbation. Infectious etiology is not excluded. Venous Doppler Study 08/25/20 00:00 IMPRESSION: NO EVIDENCE DVT OR SVT IN THE LEFT LEG. Assessment and Plan - Diagnosis (1) Pyelonephritis Is this a current diagnosis for this admission?: Yes Plan: Presented with leukocytosis, abdominal pain, bilateral CVA. Hematuria on UA. CT abdomen positive for bilateral fat stranding of the kidney suspicion for pyelonephritis. Denies any previous history of pyelonephritis, urogenital instrumentation, any urogenital anomalies, any nephrolithiasis. Blood cultures 08/19 show pansensitive E. coli Urine culture show pansensitive E. coli Repeat blood cultures 08/21 negative at 48 hours. repeat blood culture 08/24 growing gram positive rods 1 bottle likely a contaminant Received IV Cefepime x1 day; changed to Meropenem due to persistent leukocytosis and acutely ill appearance. Meropenem D4 but she failed to clinically improve. Cefepime reordered which she got for 2 days. De escalate to levaquin ID consulted. De escalated to Levaquin IV fluids discontinued due to congestion Analgesics and antiemetics as needed. (2) Bacteremia due to Escherichia coli Is this a current diagnosis for this admission?: Yes Plan: Blood culture (08/19/2020) pansensitive E. coli in 1 set Repeat blood cultures (08/21/2020) negative at 48 hours. Blood cx 08/24 growing bacillus species not anthracis Patient received cefepime x1 days. Was transitioned to meropenem due to persistent leukocytosis and toxic appearance. Meropenem D5, still failing to show clinical improvement De escalated to levaquin. Meropenem/Vanc stopped ID consulted (3) Diabetes Qualifiers: Diabetes mellitus type: type 2 Chronic kidney disease stage: stage 3 (moderate) Is this a current diagnosis for this admission?: Yes Plan: A1C 7.8% Continue to Lantus 60 units nightly. Patient is placed on a consistent carb diet. Accu-Cheks before meals and at bedtime with Humalog for sliding scale coverage. Hypoglycemia protocol in place. (4) Hypertension Is this a current diagnosis for this admission?: Yes Plan: Intermittently elevated Continue home regimen of amlodipine, telmisartan Continue metoprolol 50 mg q12 PRN IV hydralazine. (5) Elevated troponin Is this a current diagnosis for this admission?: Yes Plan: History of CAD status post stent placement. Denies any chest pain. Mildly elevated troponin; trending down and no longer following. No acute EKG change. Admit telemetry, DAPT, DINA, statins Discussed with Dr. Chambers; likely due to demand mismatch in the setting of worsening renal function. Stable/appropriate to delay cardiac consultation at this time; will re-consult as needed. (7) [id number] kidney injury Qualifiers: Acute renal failure type: unspecified Chronic kidney disease stage: stage 4 (severe) Qualified Code(s): N17.9 - Acute kidney failure, unspecified; N18.4 - Chronic kidney disease, stage 4 (severe) Is this a current diagnosis for this admission?: Yes Plan: Resolved. Likely prerenal r/t dehydration, acute infection, hypotension, sepsis. 08/2019: eGFR 24, CR 1.99 Admitted w/ eGFR 16 and Cr 2.93; now eGFR 27 and Cr 1.78 Received appropriate IVF resuscitation. IV fluids stopped due to congestion and I suspect this might be the reason why her crea is high. She also got 1 dose of lasix Continue treatment of pyelonephritis as above. Avoid nephrotoxic medications as able. Follow chemistries. (8) CAD (coronary artery disease) Qualifiers: Coronary Disease-Associated Artery/Lesion type: [place] artery Is this a current diagnosis for this admission?: Yes Plan: Denies any anginal stress, mildly elevated troponins, status post stent placement. Aspirin, plavix, statin Outpatient PCP and cardiology follow-up. (9) Left lower quadrant abdominal pain Is this a current diagnosis for this admission?: Yes Plan: CT abdomen pelvis with oral contrast revealed diverticulosis without diverticulitis. No other acute findings. It is possible that her LLQ pain is related to pyelonephritis; she does have some left neck pain. Also possible the patient has undetected kidney stone. Cultures and antibiotics as above. Antiemetics and analgesics as needed. Encourage p.o. fluids; eat as tolerated. (10) Pain in left leg Is this a current diagnosis for this admission?: Yes Plan: - complaining of left leg pain. Pulses are palpabel 2+, no concern for cellulitis - heating pads ordered - Hoffmeister Leuchtenaz for pain - US doppler negative for DVT - Time Time Spent with patient: 25-34 minutes Anticipated Discharge Disposition: Home, Self Care Anticipated Discharge Timeframe: to be determined
[2020-08-27] MEDS: HYDRALAZINE HCL INJ/PF 20 MG/1 ML SDV IV PRN (17:45)
[2020-08-27] MEDS: PROMETHAZINE HCL INJ 25 MG/1 ML VIAL IV PRN (22:32)
[2020-08-27] MEDS: EZETIMIBE 10 MG TABLET PO SCH (22:34)
[2020-08-27] MEDS: ATORVASTATIN CALCIUM 40 MG TABLET PO SCH (22:34)
[2020-08-28 05:30] LABS: ABSOLUTE BASOPHILS # (AUTO) 0.1 10^3/uL (0.0-0.2); ABSOLUTE EOSINOPHILS # (AUTO) 0.1 10^3/uL (0.0-0.6); ABSOLUTE LYMPHOCYTES (AUTO) 1.5 10^3/uL (0.5-4.7); ABSOLUTE NEUT (AUTO) 10.4 10^3/uL (1.7-8.2); BASOPHILS % (AUTO) 0.7 % (0-2); EOSINOPHILS % (AUTO) 0.5 % (0-6); HEMATOCRIT 32.2 % (36.0-47.0); HEMOGLOBIN 11.2 g/dL (12.0-15.5); LYMPHOCYTES % (AUTO) 11.4 % (13-45); MEAN CORPUSCULAR HEMOGLOBIN 28.3 pg (27.0-33.4); MEAN CORPUSCULAR HGB CONC 34.8 g/dL (32.0-36.0); MEAN CORPUSCULAR VOLUME 81 fl (80-97); MONOCYTES % (AUTO) 7.9 % (3-13); PLATELET COUNT 340 10^3/uL (150-450); RED BLOOD COUNT 3.95 10^6/uL (3.72-5.28); RED CELL DISTRIBUTION WIDTH 14.1 % (11.5-14.0); SEGMENTED NEUTROPHILS % (AUTO) 79.5 % (42-78); TOTAL CELLS COUNTED % (AUTO) 100 %; WHITE BLOOD COUNT 13.1 10^3/uL (4.0-10.5)
[2020-08-28 06:01] LABS: ALBUMIN 2.5 g/dL (3.5-5.0); ALKALINE PHOSPHATASE 76 U/L (38-126); ANION GAP 10 (5-19); ASPARTATE AMINO TRANSFERASE 21 U/L (14-36); BILIRUBIN,DIRECT 0.4 mg/dL (0.0-0.4); BILIRUBIN,TOTAL 0.7 mg/dL (0.2-1.3); BLOOD UREA NITROGEN 16 mg/dL (7-20); CALCIUM 8.4 mg/dL (8.4-10.2); CARBON DIOXIDE 21 mmol/L (22-30); CHLORIDE 99 mmol/L (98-107); GLUCOSE 157 mg/dL (75-110); POTASSIUM 3.6 mmol/L (3.6-5.0); TOTAL PROTEIN 5.3 g/dL (6.3-8.2)
[2020-08-28] MEDS: INSULIN LISPRO 100 UNIT/ML 3 ML VIAL SUBCUT SCH ×4 (09:15→22:02)
[2020-08-28] MEDS: LEVOFLOXACIN 750 MG/D5W RTU 750 MG/150 ML RTUPB IV SCH (09:39)
[2020-08-28] MEDS: HEPARIN SOD (PORCINE) 5,000 UNIT/ML 1 ML VIAL SUBCUT SCH ×2 (09:40→21:30)
[2020-08-28] MEDS: PROMETHAZINE HCL INJ 25 MG/1 ML VIAL IV PRN ×2 (09:40→19:46)
[2020-08-28] MEDS: HYDRALAZINE HCL INJ/PF 20 MG/1 ML SDV IV PRN (09:40)
[2020-08-28] MEDS: INSULIN GLARGINE,HUM.REC.ANLOG 1,000 UNIT/10 ML VIAL SUBCUT SCH (09:50)
[2020-08-28] MEDS: ONDANSETRON HCL INJ/PF 4 MG/2 ML SDV IV PRN (12:54)
[2020-08-28 14:01] LABS: A TYPE INFLUENZA AG NEGATIVE (NEGATIVE); B INFLUENZA AG NEGATIVE (NEGATIVE)
[2020-08-28 14:50] LABS: APPEARANCE,URINE SLIGHTLY-CLOUDY; BILIRUBIN,URINE NEGATIVE (NEGATIVE); COLOR,URINE YELLOW; GLUCOSE, URINE 150 mg/dL (NEGATIVE); KETONES,URINE 20 mg/dL (NEGATIVE); LEUKOCYTE ESTERASE,URINE TRACE (NEGATIVE); NITRITE,URINE NEGATIVE (NEGATIVE); PROTEIN,URINE >=500 mg/dL (NEGATIVE); URINE SPECIFIC GRAVITY 1.014; UROBILINOGEN,URINE NEGATIVE mg/dL (<2.0)
[2020-08-28] MEDS: LOSARTAN POTASSIUM 50 MG TABLET PO SCH (15:52)
[2020-08-28] MEDS: DOCUSATE SODIUM 100 MG CAPSULE PO SCH ×2 (15:52→17:45)
[2020-08-28] MEDS: METOPROLOL TARTRATE 25 MG TABLET PO SCH ×2 (15:52→21:29)
[2020-08-28] MEDS: ASPIRIN 81 MG TABLET, CHEWABLE PO SCH (15:52)
[2020-08-28] MEDS: AMLODIPINE BESYLATE 10 MG TABLET PO SCH (15:53)
[2020-08-28] MEDS: FAMOTIDINE 20 MG TABLET PO SCH (15:53)
[2020-08-28] MEDS ORDERED: DEXTROSE 5%-LACTATED RINGERS 1,000 ML IV PRN (19:29)
[2020-08-28] MEDS ORDERED: PREDNISONE 10 MG TABLET PO ONE (20:00)
--- NOTE | 2020-08-28 20:01 | PDOC PROGRESS REPORT ---
Subjective Progress Note for:: 08/28/20 Subjective:: JAEL ALVARES is a 75 year old female past medical history of CAD status post stent placement, diabetes, hypertension, tenting to ED complaining of generalized weakness, nausea, diarrhea, dysuria, abdominal pain, back pain, patient also stating that because of her weakness legs gave out and ultimately fell, denies any loss of consciousness or head trauma, patient was seen by her PCP about 2 days ago, was tested for COVID and strep, and was discharged home. Patient was noted to have leukocytosis with UA positive for leukocyte esterase and CT abdomen positive for bilateral stranding of the kidneys likely pyelonephritis. Patient denies any chest pain, shortness of breath, fever, chills, palpitation, lightheadedness. Hospital was consulted for admission.CT abdomen positive for bilateral fat stranding of the kidney suspicion for pyelonephritis. Denies any previous history of pyelonephritis, urogenital instrumentation, any urogenital anomalies, any nephrolithiasis. 08/19/20. She was initially started on Cefepime. Blood and urine culture grew E.coli. Cefepime continued. Dr. Chambers consulted for elevated troponin. Per DR. Chambers likely from ongoing infection 08/20/20. Abx switched to meropenem as patient still experiencing symptoms and persistent leukocytosis 08/21/20. Meropenem continued. 08/22/20. repeat CT abdomen no acute intra-abdominal abnormality. Colonic diverticulosis without diverticulitis. No hydronephrosis, no nephrolithiasis. 08/23/20. The patient was seen and examined at bedside. Still with generalized weakness and poor appetite, although she has been afebrile, no nausea/vomiting. WBC count 13.3. Cultures reviewed. Repeat Blood culture no growth 08/21/20. Previous culture E Coli pansensitive. Patient still appears weak looking, she would be D4 of meropenem today. 08/24/20. She was seen and examined at bedside. Still feels weak with nausea no vomiting. Afebrile. Blood cultures reviewed. WBC count went up slightly. I changed her back to cefepime since she failed to clinically improved with 2 days of meropenem. ID consulted for abx guidance with failure to improve on meropenem despite being sensitive to it on both blood and urine culture. 08/26/20. She was seen and examined at bedside. Feels marginally better but still weak and nauseous, no vomiting. She remains afebrile. CXR done showed mild pulmonary congestion. IV fluids was stopped and she was given 1 dose of lasix. IV antibiotics de escalated to levaquin Iv daily. Echo ordered. 08/27/20. She was seen and examined at bedside. She was able to eat her breakfast this morning and feels less nauseous. She remains afebrile. WBC up to 14.7 today. Creatinine 1.44. I have stopped her IV fluids due to beginning congestion. Echo showed grade II diastolic dysfunction. I encouraged her to drink fluids since her IV fluids were stopped. Her clinical improvement have been slow. She also complains of left leg pain, US was negative for DVT and her pulses are good. Pain is relieved by heating pads and norco. 08/28/20. She again feels extremely tired and fatigued with generalized body aches, and nausea. Her WBC has midly decreased and her OSVALDO has resolved. She was getting both simvastatin and lipitor from 08/19 - 08/26 so this might be causing myositis. i have stopped both medications. Total CK is normal. TSH is normal. CRP and ESR noted to be elevated which can be due to ongoing infection or polymyalgia rheumatica given weakness and muscle pains. STACI pending. I have ordered 1 dose of prednisone tonight and see how she responds in the morning. Reason For Visit: PYELONEPHRITIS,NAUSEA,VOMITING,ELEVATED TROPS Physical Exam Vital Signs: Temp Pulse Resp BP Pulse Ox 97.9 F 94 18 182/50 H 100 08/28/20 15:49 08/28/20 15:49 08/28/20 15:49 08/28/20 15:49 08/28/20 15:49 Intake & Output 08/27/20 08/28/20 08/29/20 06:59 06:59 06:59 Intake Total 880 750 720 Output Total 500 Balance 380 750 720 Weight 81.9 kg 81.9 kg General appearance: PRESENT: no acute distress, cooperative, other - looks tired and fatigued Head exam: PRESENT: atraumatic, normocephalic Eye exam: PRESENT: EOMI, PERRLA Mouth exam: PRESENT: moist Neck exam: PRESENT: full ROM Respiratory exam: PRESENT: clear to auscultation [place], symmetrical, unlabored Cardiovascular exam: PRESENT: RRR, +S1, +S2 Pulses: PRESENT: +2 pedal pulses bilateral GI/Abdominal exam: PRESENT: normal bowel sounds, soft. ABSENT: rebound, tenderness Extremities exam: PRESENT: full ROM, other - tenderness bilateral thighs, no swelling Musculoskeletal exam: PRESENT: full ROM Neurological exam: PRESENT: alert, awake, oriented to person, oriented to place, oriented to time, oriented to situation Psychiatric exam: PRESENT: normal mood Skin exam: PRESENT: normal color Results Laboratory Results: 08/28/20 05:12 08/28/20 05:12 08/28/20 08/28/20 08/28/20 05:12 05:12 05:12 WBC 13.1 H RBC 3.95 Hgb 11.2 L Hct 32.2 L MCV 81 MCH 28.3 MCHC 34.8 RDW 14.1 H Plt Count 340 Seg Neutrophils % 79.5 H Sodium 130.1 L Potassium 3.6 Chloride 99 Carbon Dioxide 21 L Anion Gap 10 BUN 16 Creatinine 1.25 Est GFR ( Amer) 50 L Glucose 157 H Lactic Acid Calcium 8.4 Total Bilirubin 0.7 AST 21 Alkaline Phosphatase 76 C-Reactive Protein Total Protein 5.3 L Albumin 2.5 L TSH 1.57 Urine Color Urine Appearance Urine pH Ur Specific [place] Urine Protein Urine Glucose (UA) Urine Ketones Urine Blood Urine Nitrite Ur Leukocyte Esterase Urine WBC (Auto) Urine RBC (Auto) 08/28/20 08/28/20 08/28/20 13:35 14:20 17:57 WBC RBC Hgb Hct MCV MCH MCHC RDW Plt Count Seg Neutrophils % Sodium Potassium Chloride Carbon Dioxide Anion Gap BUN Creatinine Est GFR ( Amer) Glucose Lactic Acid 1.1 Calcium Total Bilirubin AST Alkaline Phosphatase C-Reactive Protein 63.5 H Total Protein Albumin TSH Urine Color YELLOW Urine Appearance SLIGHTLY-CLOUDY Urine pH 6.0 Ur Specific [place] 1.014 Urine Protein >=500 H Urine Glucose (UA) 150 H Urine Ketones 20 H Urine Blood SMALL H Urine Nitrite NEGATIVE Ur Leukocyte Esterase TRACE H Urine WBC (Auto) 34 Urine RBC (Auto) 08/18/20 08/19/20 08/19/20 21:40 00:48 06:15 Creatine Kinase Troponin I 0.060 0.060 0.039 NT-Pro-B Natriuret Pep 08/19/20 08/20/20 08/26/20 17:45 00:58 05:43 Creatine Kinase Troponin I 0.036 0.030 NT-Pro-B Natriuret Pep 4260 H 08/28/20 05:12 Creatine Kinase 24 L Troponin I NT-Pro-B Natriuret Pep Impressions: Abdomen/Pelvis CT 08/22/20 00:00 IMPRESSION: 1. No acute intra-abdominal abnormality. 2. Colonic diverticulosis without diverticulitis. Chest X-Ray 08/25/20 00:00 IMPRESSION: Constellation of findings suggests early CHF exacerbation. Infectious etiology is not excluded. Venous Doppler Study 08/25/20 00:00 IMPRESSION: NO EVIDENCE DVT OR SVT IN THE LEFT LEG. Assessment and Plan - Diagnosis (1) Generalized muscle weakness Is this a current diagnosis for this admission?: Yes Plan: - she has been complaining of generalized muscle pain and weakness since being admitted - initially thought secondary to her ongoing E.coli bacteremia so her abx was switched to Meropenem, she received about 3 days of meropenem with no clinical improvement. I switched her back to cefepime and ID was consulted who recommend to continue abx and possible step down to ceftri as the sensitivity showed that abx is appropriate for her infection. She was de escalated to levaquin - still with profound generalized muscle pain and weakness, no SOB, no dy sphagia. at this point with 7 days of abx I don't think this is from her infection anymore - ddx: statin myopathy, hypothyroidism, polymyalgia rheumatica, polymyositis, inclusion body myositis, adrenal insuff, 2/2 to ongoing infection - TSH normal - statin was discontinued - flu test negative - CRP and ESR elevated whic can be from PMR or ongoing infection - STACI pending - will trial 1 dose of prednisone 15 mg now and see how she responds. (2) Pyelonephritis Is this a current diagnosis for this admission?: Yes Plan: Presented with leukocytosis, abdominal pain, bilateral CVA. Hematuria on UA. CT abdomen positive for bilateral fat stranding of the kidney suspicion for pyelonephritis. Denies any previous history of pyelonephritis, urogenital instrumentation, any urogenital anomalies, any nephrolithiasis. Blood cultures 08/19 show pansensitive E. coli Urine culture show pansensitive E. coli Repeat blood cultures 08/21 negative at 48 hours. repeat blood culture 08/24 growing gram positive rods 1 bottle likely a contam inant Received IV Cefepime x1 day; changed to Meropenem due to persistent leukocytosis and acutely ill appearance. Meropenem D4 but she failed to clinically improve. Cefepime reordered which she got for 2 days. De escalate to levaquin ID consulted. De escalated to Levaquin IV fluids resumed due to poor appetite. She has mild congestion on XR and elevated BNp so would advise to stop if she becomes SOB. Analgesics and antiemetics as needed. (3) Bacteremia due to Escherichia coli Is this a current diagnosis for this admission?: Yes Plan: Blood culture (08/19/2020) pansensitive E. coli in 1 set Repeat blood cultures (08/21/2020) negative at 48 hours. Blood cx 08/24 growing bacillus species not anthracis which per ID is a common contaminant Patient received cefepime x1 days. Was transitioned to meropenem due to persistent leukocytosis and toxic appearance. Meropenem D5, still failing to show clinical improvement De escalated to Levaquin. Meropenem/Vanc stopped ID consulted (4) Diabetes Qualifiers: Diabetes mellitus type: type 2 Chronic kidney disease stage: stage 3 (moderate) Is this a current diagnosis for this admission?: Yes Plan: A1C 7.8% Continue to Lantus 60 units nightly. Patient is placed on a consistent carb diet. Accu-Cheks before meals and at bedtime with Humalog for sliding scale coverage. Hypoglycemia protocol in place. (5) Hypertension Is this a current diagnosis for this admission?: Yes Plan: Intermittently elevated Continue home regimen of amlodipine, telmisartan Continue metoprolol 50 mg q12 PRN IV hydralazine. (6) Elevated troponin Is this a current diagnosis for this admission?: Yes Plan: History of CAD status post stent placement. Denies any chest pain. Mildly elevated troponin; trending down and no longer following. No acute EKG change. Admit telemetry, DAPT, DINA, statins Discussed with Dr. Chambers; likely due to demand mismatch in the setting of worsening renal function. Stable/appropriate to delay cardiac consultation at this time; will re-consult as needed. (7) Diastolic CHF Qualifiers: Heart failure chronicity: acute on chronic Qualified Code(s): I50.33 - Acute on chronic diastolic (congestive) heart failure Is this a current diagnosis for this admission?: Yes Plan: - per echo Grade II diastolic dysfunction - fluids resumed today at low rate of 60 cc /hr because patient has been vomiting with poor oral intake. may stop if able to drink. (8) [id number] kidney injury Qualifiers: Acute renal failure type: unspecified Chronic kidney disease stage: stage 4 (severe) Qualified Code(s): N17.9 - Acute kidney failure, unspecified; N18.4 - Chronic kidney disease, stage 4 (severe) Is this a current diagnosis for this admission?: Yes Plan: Resolved. Likely prerenal r/t dehydration, acute infection, hypotension, sepsis. 08/2019: eGFR 24, CR 1.99 Admitted w/ eGFR 16 and Cr 2.93; now eGFR 27 and Cr 1.78 Received appropriate IVF resuscitation. IV fluids stopped due to congestion and I suspect this might be the reason why her crea is high. She also got 1 dose of lasix Continue treatment of pyelonephritis as above. Avoid nephrotoxic medications as able. Follow chemistries. (9) CAD (coronary artery disease) Qualifiers: Coronary Disease-Associated Artery/Lesion type: upper [place] artery Is this a current diagnosis for this admission?: Yes Plan: Denies any anginal stress, mildly elevated troponins, status post stent placement. Aspirin, plavix, statin Outpatient PCP and cardiology follow-up. (10) Left lower quadrant abdominal pain Is this a current diagnosis for this admission?: Yes Plan: CT abdomen pelvis with oral contrast revealed diverticulosis without diverticulitis. No other acute findings. It is possible that her LLQ pain is related to pyelonephritis; she does have some left neck pain. Also possible the patient has undetected kidney stone. Cultures and antibiotics as above. Antiemetics and analgesics as needed. Encourage p.o. fluids; eat as tolerated. (11) Pain in left leg Is this a current diagnosis for this admission?: Yes Plan: - complaining of left leg pain. Pulses are palpabel 2+, no concern for cellulitis - heating pads ordered - aragon for pain - US doppler negative for DVT - Plan Summary Summary: Patient was initially admitted due to E. coli bacteremia and acute pyelonephritis. She initially got cefepime and failed to show clinical improvement hence she was changed to meropenem. She got 5 days of meropenem and was still very weak complaining of generalized muscle aches and pains and poor appetite. I switch her back to cefepime and consulted ID who stated that appropriate antibiotics are being used and we may consider de-escalating to ceftriaxone. ID escalated her to Levaquin since she failed to improve on cefepime and meropenem and ceftriaxone is unlikely going to help her either. At this point I do not think her generalized muscle pain and weakness is due to her infection. I ordered TSH, ESR, CRP,STACI, flu test. ESR and CRP were noted to be elevated. She may have polymyalgia rheumatica, I have ordered 1 dose of prednisone as a trial and see how she responds. I also stopped the simvastatin and Lipitor as it was noted that she was being given both from the time of admission up to August 26 when I stopped the simvastatin. - Time Time Spent with patient: 25-34 minutes Anticipated Discharge Disposition: Home with Home Health Anticipated Discharge Timeframe: to be determined
[2020-08-28] MEDS: HYDROCODONE/ACETAMINOPHEN 5-325 MG TABLET PO PRN (20:31)
[2020-08-28] MEDS: EZETIMIBE 10 MG TABLET PO SCH (21:30)
[2020-08-28] MEDS: CLOPIDOGREL BISULFATE 75 MG TABLET PO SCH (22:37)
[2020-08-29] MEDS: ONDANSETRON HCL INJ/PF 4 MG/2 ML SDV IV PRN (01:49)
[2020-08-29] MEDS: HYDROCODONE/ACETAMINOPHEN 5-325 MG TABLET PO PRN (01:49)
[2020-08-29 05:40] LABS: ABSOLUTE MONOCYTES (AUTO) 0.7 10^3/uL (0.1-1.4); ABSOLUTE NEUT (AUTO) 11.4 10^3/uL (1.7-8.2); BASOPHILS % (AUTO) 0.3 % (0-2); EOSINOPHILS % (AUTO) 0.1 % (0-6); HEMATOCRIT 32.5 % (36.0-47.0); HEMOGLOBIN 11.3 g/dL (12.0-15.5); LYMPHOCYTES % (AUTO) 7.6 % (13-45); MEAN CORPUSCULAR HEMOGLOBIN 28.7 pg (27.0-33.4); MEAN CORPUSCULAR HGB CONC 34.8 g/dL (32.0-36.0); MEAN CORPUSCULAR VOLUME 82 fl (80-97); MONOCYTES % (AUTO) 5.5 % (3-13); PLATELET COUNT 363 10^3/uL (150-450); RED BLOOD COUNT 3.95 10^6/uL (3.72-5.28); RED CELL DISTRIBUTION WIDTH 13.9 % (11.5-14.0); SEGMENTED NEUTROPHILS % (AUTO) 86.5 % (42-78); TOTAL CELLS COUNTED % (AUTO) 100 %; WHITE BLOOD COUNT 13.1 10^3/uL (4.0-10.5)
[2020-08-29 06:14] LABS: ALBUMIN 2.6 g/dL (3.5-5.0); ALKALINE PHOSPHATASE 80 U/L (38-126); ANION GAP 12 (5-19); ASPARTATE AMINO TRANSFERASE 17 U/L (14-36); BILIRUBIN,DIRECT 0.3 mg/dL (0.0-0.4); BILIRUBIN,TOTAL 0.6 mg/dL (0.2-1.3); BLOOD UREA NITROGEN 18 mg/dL (7-20); CALCIUM 8.6 mg/dL (8.4-10.2); CARBON DIOXIDE 21 mmol/L (22-30); CHLORIDE 98 mmol/L (98-107); GLUCOSE 245 mg/dL (75-110); POTASSIUM 4.2 mmol/L (3.6-5.0); TOTAL PROTEIN 5.4 g/dL (6.3-8.2)
[2020-08-29] MEDS: INSULIN LISPRO 100 UNIT/ML 3 ML VIAL SUBCUT SCH ×2 (08:50→14:41)
[2020-08-29] MEDS ORDERED: PREDNISONE 5 MG TABLET PO SCH (10:00)
[2020-08-29] MEDS: METOPROLOL TARTRATE 25 MG TABLET PO SCH (10:04)
[2020-08-29] MEDS: AMLODIPINE BESYLATE 10 MG TABLET PO SCH (10:05)
[2020-08-29] MEDS: LOSARTAN POTASSIUM 50 MG TABLET PO SCH (10:05)
[2020-08-29] MEDS: DOCUSATE SODIUM 100 MG CAPSULE PO SCH (10:05)
[2020-08-29] MEDS: CLOPIDOGREL BISULFATE 75 MG TABLET PO SCH (10:05)
[2020-08-29] MEDS: FAMOTIDINE 20 MG TABLET PO SCH (10:06)
[2020-08-29] MEDS: ASPIRIN 81 MG TABLET, CHEWABLE PO SCH (10:06)
[2020-08-29] MEDS: HEPARIN SOD (PORCINE) 5,000 UNIT/ML 1 ML VIAL SUBCUT SCH (10:07)
[2020-08-29] MEDS: LEVOFLOXACIN 750 MG/D5W RTU 750 MG/150 ML RTUPB IV SCH (10:09)
[2020-08-29] MEDS: INSULIN GLARGINE,HUM.REC.ANLOG 1,000 UNIT/10 ML VIAL SUBCUT SCH (12:03)
[2020-08-29 14:14] VITALS: BP 138/53
--- NOTE | 2020-08-30 06:52 | PDOC DISCHARGE SUMMARY ---
Impression - Admit/DC Date/PCP Admission Date/Primary Care Provider: 08/19/20 04:02 KERRI BURRIS PA-C Discharge Date: 08/29/20 - Assessment Summary: Ms. Jael Alvares is a 75-year-old female past medical history Of CAD status post stent placement, diabetes, hypertension, who presented with concerns regarding generalized weakness, nausea, diarrhea, dysuria, abdominal pain, back pain due to polynephritis and bacteremia. She was treated with cefepime followed by meropenem, she was inevitably switched back to cefepime then de-escalated to levaquin. Hospital course was complicated by was complicated by frequent episodes of shortness of breath. Chest x-ray showed pulmonary congestion and echo showed grade 2 diastolic dysfunction. IV fluids were stopped and she was treated with Lasix. Over the course of hospitalization physician she continued to complain of joint stiffness and pain primarily in the left lower extremity and lower back. This was suspected to be secondary to statin induced myalgias versus PMR. STACI was ordered with results pending.She was treated with a single dose of 15 mg prednisone with almost immediate improvement. She is now stable for discharge home. She is advised to follow-up with her primary care provider in 1 week for reevaluation and continuation of treatment regimen. - Additional Information Discharge Diet: Cardiac, Diabetic Discharge Activity: Activity As Tolerated, Balance Activity w/Rest Referrals: KERRI BURRIS PA-C [Primary Care Provider] - 09/22/20 11:20 am Prescriptions: Ciprofloxacin HCl [Cipro 750 mg Tablet] 750 mg PO BID 3 Days #6 tablet Prednisone [Deltasone 5 mg Tablet] 10 mg PO DAILY 14 Days #14 tablet Omeprazole 20 mg PO DAILY #30 capsule.dr Home Medications: Amlodipine Besylate [Norvasc 10 mg Tablet] 10 mg PO DAILY 08/19/20 Aspirin [Adult Low Dose Aspirin EC] 81 mg PO DAILY 08/19/20 Clopidogrel Bisulfate [Plavix 75 mg Tablet] 75 mg PO DAILY 08/19/20 Ezetimibe [Zetia 10 mg Tablet] 10 mg PO QHS 08/19/20 Gabapentin [Neurontin 300 mg Capsule] 300 mg PO QHS 08/19/20 Glipizide [Glipizide Xl] 5 mg PO DAILY 08/19/20 Insulin Aspart [Novolog Flexpen] 10 unit SQ QAM 08/19/20 Insulin Aspart [Novolog Flexpen] 12 unit SQ QPM 08/19/20 Insulin Detemir [Levemir Insulin 100 units/mL Insulin Pen] 70 unit SQ DAILY 08/19/20 Metoprolol Tartrate [Lopressor 25 mg Tablet] 25 mg PO Q12 08/19/20 Nitroglycerin [Nitrostat 0.4 mg (1/150 Gr) Tabs 25/Bottle] 0.2 mg SL Q5MP PRN 08/19/20 Ondansetron [Zofran Odt 4 mg Tablet] 8 mg PO Q6HP PRN 08/19/20 Simvastatin 20 mg PO QHS 08/19/20 Sitagliptin Phosphate [Januvia 50 mg Tablet] 50 mg PO DAILY 08/19/20 Telmisartan 80 mg PO DAILY 08/19/20 Ciprofloxacin HCl [Cipro 750 mg Tablet] 750 mg PO BID 3 Days #6 tablet 08/29/20 Omeprazole 20 mg PO DAILY #30 capsule. 08/29/20 Prednisone [Deltasone 5 mg Tablet] 10 mg PO DAILY 14 Days #14 tablet 08/29/20 History of Present Illiness History of Present Illness: As Per Dr. Vu Progress note 08/28/2020: "JAEL ALVARES is a 75 year old female past medical history of CAD status post stent placement, diabetes, hypertension, tenting to ED complaining of generalized weakness, nausea, diarrhea, dysuria, abdominal pain, back pain, patient also stating that because of her weakness legs gave out and ultimately fell, denies any loss of consciousness or head trauma, patient was seen by her PCP about 2 days ago, was tested for COVID and strep, and was discharged home. Patient was noted to have leukocytosis with UA positive for leukocyte esterase and CT abdomen positive for bilateral stranding of the kidneys likely pyelonephritis. Patient denies any chest pain, shortness of breath, fever, chills, palpitation, lightheadedness. Hospital was consulted for admission.CT abdomen positive for bilateral fat stranding of the kidney suspicion for pyelonephritis. Denies any previous history of pyelonephritis, urogenital instrumentation, any urogenital anomalies, any nephrolithiasis. 08/19/20. She was initially started on Cefepime. Blood and urine culture grew E.coli. Cefepime continued. Dr. Chambers consulted for elevated troponin. Per DR. Chambers likely from ongoing infection 08/20/20. Abx switched to meropenem as patient still experiencing symptoms and persistent leukocytosis 08/21/20. Meropenem continued. 08/22/20. repeat CT abdomen no acute intra-abdominal abnormality. Colonic diverticulosis without diverticulitis. No hydronephrosis, no nephrolithiasis. 08/23/20. The patient was seen and examined at bedside. Still with generalized weakness and poor appetite, although she has been afebrile, no nausea/vomiting. WBC count 13.3. Cultures reviewed. Repeat Blood culture no growth 08/21/20. Previous culture E Coli pansensitive. Patient still appears weak looking, she would be D4 of meropenem today. 08/24/20. She was seen and examined at bedside. Still feels weak with nausea no vomiting. Afebrile. Blood cultures reviewed. WBC count went up slightly. I changed her back to cefepime since she failed to clinically improved with 2 days of meropenem. ID consulted for abx guidance with failure to improve on meropenem despite being sensitive to it on both blood and urine culture. 08/26/20. She was seen and examined at bedside. Feels marginally better but still weak and nauseous, no vomiting. She remains afebrile. CXR done showed mild pulmonary congestion. IV fluids was stopped and she was given 1 dose of lasix. IV antibiotics de escalated to levaquin Iv daily. Echo ordered. 08/27/20. She was seen and examined at bedside. She was able to eat her breakfast this morning and feels less nauseous. She remains afebrile. WBC up to 14.7 today. Creatinine 1.44. I have stopped her IV fluids due to beginning congestion. Echo showed grade II diastolic dysfunction. I encouraged her to drink fluids since her IV fluids were stopped. Her clinical improvement have been slow. She also complains of left leg pain, US was negative for DVT and her pulses are good. Pain is relieved by heating pads and norco. 08/28/20. She again feels extremely tired and fatigued with generalized body aches, and nausea. Her WBC has midly decreased and her OSVALDO has resolved. She was getting both simvastatin and lipitor from 08/19 - 08/26 so this might be causing myositis. i have stopped both medications. Total CK is normal. TSH is normal. CRP and ESR noted to be elevated which can be due to ongoing infection or polymyalgia rheumatica given weakness and muscle pains. STACI pending. I have ordered 1 dose of prednisone tonight and see how she responds in the morning." Physical Exam Vital Signs: Temp Pulse Resp BP Pulse Ox 98.1 F 62 18 160/47 H 92 08/29/20 10:00 08/29/20 08:00 08/29/20 08:00 08/29/20 08:00 08/29/20 08:00 Intake & Output 08/28/20 08/29/20 08/30/20 06:59 06:59 06:59 Intake Total 407 513 8341 Balance 279 702 4461 Weight 81.9 kg 81.9 kg General appearance: PRESENT: no acute distress, cooperative, well-developed Head exam: PRESENT: atraumatic, normocephalic Eye exam: PRESENT: conjunctiva pink, EOMI, PERRLA Mouth exam: PRESENT: moist, tongue midline Neck exam: PRESENT: full ROM. ABSENT: tenderness Respiratory exam: PRESENT: clear to auscultation [place], symmetrical, unlabored Cardiovascular exam: PRESENT: RRR, +S1, +S2. ABSENT: diastolic murmur, systolic murmur Pulses: PRESENT: +2 pedal pulses bilateral GI/Abdominal exam: PRESENT: normal bowel sounds, soft. ABSENT: distended, firm, guarding, rigid, tenderness Gentrourinary exam: PRESENT: ecchymosis - Noted diffusley bilateral upper extremities. Extremities exam: PRESENT: full ROM, tenderness - Tenderness Left > Right thighs, no swelling. ABSENT: clubbing Musculoskeletal exam: PRESENT: ambulatory, full ROM. ABSENT: deformity, dislocation Neurological exam: PRESENT: alert, awake, oriented to person, oriented to place, oriented to time, oriented to situation, CN II-XII grossly intact. ABSENT: altered, motor sensory deficit Psychiatric exam: PRESENT: appropriate affect, normal mood Skin exam: PRESENT: dry, intact, warm Results Laboratory Results: WBC 13.1 10^3/uL (4.0-10.5) H 08/29/20 05:17 RBC 3.95 10^6/uL (3.72-5.28) 08/29/20 05:17 Hgb 11.3 g/dL (12.0-15.5) L 08/29/20 05:17 Hct 32.5 % (36.0-47.0) L 08/29/20 05:17 MCV 82 fl (80-97) 08/29/20 05:17 MCH 28.7 pg (27.0-33.4) 08/29/20 05:17 MCHC 34.8 g/dL (32.0-36.0) 08/29/20 05:17 RDW 13.9 % (11.5-14.0) 08/29/20 05:17 Plt Count 363 10^3/uL (150-450) 08/29/20 05:17 Lymph % (Auto) 7.6 % (13-45) L 08/29/20 05:17 [place] % (Auto) 5.5 % (3-13) 08/29/20 05:17 Eos % (Auto) 0.1 % (0-6) 08/29/20 05:17 Baso % (Auto) 0.3 % (0-2) 08/29/20 05:17 Absolute Neuts (auto) 11.4 10^3/uL (1.7-8.2) H 08/29/20 05:17 Absolute Lymphs (auto) 1.0 10^3/uL (0.5-4.7) 08/29/20 05:17 Absolute Monos (auto) 0.7 10^3/uL (0.1-1.4) 08/29/20 05:17 Absolute Eos (auto) 0.0 10^3/uL (0.0-0.6) 08/29/20 05:17 Absolute Basos (auto) 0.0 10^3/uL (0.0-0.2) 08/29/20 05:17 Total Counted 100 08/25/20 16:36 Seg Neutrophils % 86.5 % (42-78) H 08/29/20 05:17 Seg Neuts % (Manual) 85 % (42-78) H 08/25/20 16:36 Band Neutrophils % 1 % (3-5) L 08/18/20 21:40 Lymphocytes % (Manual) 9 % (13-45) L 08/25/20 16:36 Atypical Lymphs % 2 % (0) 08/18/20 21:40 Monocytes % (Manual) 4 % (3-13) 08/25/20 16:36 Eosinophils % (Manual) 1 % (0-6) 08/25/20 16:36 Basophils % (Manual) 1 % (0-2) 08/25/20 16:36 Abs Neuts (Manual) 13.5 10^3/uL (1.7-8.2) H 08/25/20 16:36 Abs Lymphs (Manual) 1.4 10^3/uL (0.5-4.7) 08/25/20 16:36 Abs Monocytes (Manual) 0.6 10^3/uL (0.1-1.4) 08/25/20 16:36 Absolute Eos (Manual) 0.2 10^3/uL (0.0-0.6) 08/25/20 16:36 Abs Basophils (Manual) 0.2 10^3/uL (0.0-0.2) 08/25/20 16:36 Platelet Comment ADEQUATE 08/25/20 16:36 Anisocytosis SLIGHT 08/25/20 16:36 Ovalocytes SLIGHT 08/25/20 16:36 Schistocytes SLIGHT 08/25/20 16:36 ESR 105 mm/hr (0-30) H 08/28/20 17:57 PT 14.1 SEC (11.4-15.4) 08/20/20 07:30 INR 1.07 08/20/20 07:30 Sodium 131.4 mmol/L (137-145) L 08/29/20 05:17 Potassium 4.2 mmol/L (3.6-5.0) 08/29/20 05:17 Chloride 98 mmol/L (98-107) 08/29/20 05:17 Carbon Dioxide 21 mmol/L (22-30) L 08/29/20 05:17 Anion Gap 12 (5-19) 08/29/20 05:17 BUN 18 mg/dL (7-20) 08/29/20 05:17 Creatinine 1.53 mg/dL (0.52-1.25) H 08/29/20 05:17 Est GFR ( Amer) 40 (>60) L 08/29/20 05:17 Est GFR (MDRD) Non-Af 33 (>60) L 08/29/20 05:17 Glucose 245 mg/dL (75-110) H 08/29/20 05:17 POC Glucose 233 mg/dL (70-110) H 08/29/20 11:27 Hemoglobin A1c % 7.8 % (4.7-6.0) H 08/21/20 05:49 Lactic Acid 1.1 mmol/L (0.7-2.1) 08/28/20 13:35 Calcium 8.6 mg/dL (8.4-10.2) 08/29/20 05:17 Magnesium 2.1 mg/dL (1.6-2.3) 08/20/20 07:30 Total Bilirubin 0.6 mg/dL (0.2-1.3) 08/29/20 05:17 Direct Bilirubin 0.3 mg/dL (0.0-0.4) 08/29/20 05:17 Neonat Total Bilirubin Not Reportable 08/29/20 05:17 Neonat Direct Bilirubin Not Reportable 08/29/20 05:17 Neonat Indirect Bili Not Reportable 08/29/20 05:17 AST 17 U/L (14-36) 08/29/20 05:17 ALT 12 U/L (<35) 08/29/20 05:17 Alkaline Phosphatase 80 U/L (38-126) 08/29/20 05:17 Creatine Kinase 24 U/L (30-135) L 08/28/20 05:12 Troponin I 0.030 ng/mL 08/20/20 00:58 C-Reactive Protein 63.5 mg/L (<10.0) H 08/28/20 17:57 NT-Pro-B Natriuret Pep 4260 pg/mL (<450) H 08/26/20 05:43 Total Protein 5.4 g/dL (6.3-8.2) L 08/29/20 05:17 Albumin 2.6 g/dL (3.5-5.0) L 08/29/20 05:17 Lipase 34.0 U/L (23-300) 08/18/20 21:40 TSH 1.57 uIU/mL (0.47-4.68) 08/28/20 05:12 Cortisol AM Sample 7.11 ug/dL (4.46-22.7) 08/29/20 05:17 Urine Color YELLOW 08/28/20 14:20 Urine Appearance SLIGHTLY-CLOUDY 08/28/20 14:20 Urine pH 6.0 (5.0-9.0) 08/28/20 14:20 Ur Specific [place] 1.014 08/28/20 14:20 Urine Protein >=500 mg/dL (NEGATIVE) H 08/28/20 14:20 Urine Glucose (UA) 150 mg/dL (NEGATIVE) H 08/28/20 14:20 Urine Ketones 20 mg/dL (NEGATIVE) H 08/28/20 14:20 Urine Blood SMALL (NEGATIVE) H 08/28/20 14:20 Urine Nitrite NEGATIVE (NEGATIVE) 08/28/20 14:20 Urine Bilirubin NEGATIVE (NEGATIVE) 08/28/20 14:20 Urine Urobilinogen NEGATIVE mg/dL (<2.0) 08/28/20 14:20 Ur Leukocyte Esterase TRACE (NEGATIVE) H 08/28/20 14:20 Urine WBC (Auto) 34 /HPF 08/28/20 14:20 Urine RBC (Auto) 17 /HPF 08/28/20 14:20 U Hyaline Cast (Auto) 1 /LPF 08/28/20 14:20 Urine Bacteria (Auto) TRACE /HPF 08/28/20 14:20 Urine WBC Clumps MOD /HPF 08/19/20 00:48 Squamous Epi Cells Auto 7 /HPF 08/28/20 14:20 U Non-Squamous Epis Auto 2 /HPF 08/28/20 14:20 Urine Mucus (Auto) RARE /LPF 08/28/20 14:20 Urine Ascorbic Acid NEGATIVE (NEGATIVE) 08/28/20 14:20 Influenza A (Rapid) NEGATIVE (NEGATIVE) 08/28/20 13:25 Influenza B (Rapid) NEGATIVE (NEGATIVE) 08/28/20 13:25 08/18/20 08/19/20 08/19/20 21:40 00:48 06:15 Troponin I 0.060 0.060 0.039 NT-Pro-B Natriuret Pep 08/19/20 08/20/20 08/26/20 17:45 00:58 05:43 Troponin I 0.036 0.030 NT-Pro-B Natriuret Pep 4260 H Impressions: Abdomen/Pelvis CT 08/18/20 22:33 IMPRESSION: 1. Nonspecific bilateral perinephric stranding likely incidental but consider correlation with urinalysis to exclude infection. 2. Otherwise essentially unremarkable unenhanced exam. Abdomen/Pelvis CT 08/22/20 00:00 IMPRESSION: 1. No acute intra-abdominal abnormality. 2. Colonic diverticulosis without diverticulitis. Chest X-Ray 08/25/20 00:00 IMPRESSION: Constellation of findings suggests early CHF exacerbation. Infectious etiology is not excluded. Venous Doppler Study 08/25/20 00:00 IMPRESSION: NO EVIDENCE DVT OR SVT IN THE LEFT LEG. Plan Health Concerns: Heart failure, risk of bacteremia, kidney injury, joint stiffness Plan of Treatment: Prednisone 10mg daily x2 weeks, then taper down by 2.5mg q weekly until maintenance at lowest possible dose. Cipro 750mg BID for 3 days. Follow up with PCP within 1 week. Goals: Maintenance of stiffness with as low as possible dose of prednisone. Time Spent: Greater than 30 Minutes Stroke Is this a Stroke Patient?: No Acute Heart Failure Is this a Heart Failure Patient?: Yes Documentation of LVEF assessment?: Yes LVEF: LVEF Greater Than 40% Anticoagulant Therapy: Yes Discharged on Evidence-Based Beta Blockers: Yes Discharged on ARNI?: Yes Discharged on ARB?: Yes Discharged on ACEI?: N/A Discharged on ARB For LVEF <35%, discharged on Aldosterone Antagonist?: N/A (LVEF > or = 35%) Follow-up Appointment scheduled within 7 days?: Yes
[2020-08-30 13:46] LABS: ANTINUCLEAR ANTIBODIES Negative (Negative)
== END 2020-08-29 15:19 | disposition home health service (06) | DRG 690 ==
LOC: ER 20:53 → EH 08-19 04:02 → 3N 08-19 07:45 → 5 08-19 18:36
PROVIDERS: ADMIT Internal Medicine; ATTEND Hospitalist
DX: N10 Acute pyelonephritis (principal); I50.30 Unspecified diastolic (congestive) heart failure; B96.20 Unspecified Escherichia coli [E. coli] as the cause of diseases classified elsewhere; I12.9 Hypertensive chronic kidney disease with stage 1 through stage 4 chronic kidney disease, or unspecified chronic kidney disease; N17.9 Acute kidney failure, unspecified; E11.22 Type 2 diabetes mellitus with diabetic chronic kidney disease; N18.30 Chronic kidney disease, stage 3 unspecified; I25.10 Atherosclerotic heart disease of native coronary artery without angina pectoris; R79.89 Other specified abnormal findings of blood chemistry; T46.6X5A Adverse effect of antihyperlipidemic and antiarteriosclerotic drugs, initial encounter; M79.605 Pain in left leg; M54.5 Low back pain; D72.829 Elevated white blood cell count, unspecified; Z95.5 Presence of coronary angioplasty implant and graft; Z92.83 Personal history of failed moderate sedation; Z88.6 Allergy status to analgesic agent; Z88.8 Allergy status to other drugs, medicaments and biological substances; Z79.82 Long term (current) use of aspirin; Z79.4 Long term (current) use of insulin; Z79.899 Other long term (current) drug therapy; Z91.81 History of falling
CPT/HCPCS: 36415; 71045; 71046; 74176; 80048; 80053; 81001; 82533; 82550; 82962; 83036; 83605; 83690; 83735; 83880; 84443; 84484; 85025; 85027; 85610; 85652; 86038; 86140; 87040; 87077; 87086; 87088; 87150; 87186; 87804; 90471; 90686; 93005; 93010; 93306; 93971; 96361; 96365; 99285; G0008; J0360; J0692; J0696; J1644; J1650; J1815; J1940; J1956; J2185; J2270; J2405; J2550; J3370; J7030; J7060; J7120; J7121; J7512; S0028

== ENCOUNTER 2020-09-22 17:43 | Emergency (ER) | payer MEDICARE, OTHER ==
--- NOTE | 2020-09-22 18:02 | ER Document Report ---
ED Medical Screen (RME) - General Chief Complaint: Abnormal Lab Results Stated Complaint: ABNORMAL LABS Time Seen by Provider: 09/22/20 17:55 Primary Care Provider: KERRI BURRIS PA-C [Primary Care Provider] - Follow up as needed Mode of Arrival: Wheelchair Information source: Patient Notes: 75-year-old female presented to ED for abnormal labs. She states she went to Dr. Hensley's office and they dmitry labs they called her today and told her that she needed to come to the emergency room for abnormal labs. She states that they told her that her potassium was high and her sodium was low. She states she has been very weak lately. She states she does have renal insufficiency. I have reviewed history with patient. I have greeted and performed a rapid initial assessment of this patient. A comprehensive ED assessment and evaluation of the patient, analysis of test results and completion of medical decision making process will be conducted by an additional ED providers. TRAVEL OUTSIDE OF THE [place] IN LAST 30 DAYS: No - Related Data Allergies/Adverse Reactions: atenolol Allergy (Verified 06/12/18 07:14) Past Medical History - General Information source: Patient - Social History Cigarette use (# per day): No Frequency of alcohol use: None Drug Abuse: None Lives with: Family Family history: Reviewed & Not Pertinent - Past Medical History Cardiac Medical History: Reports: Hx Coronary Artery Disease, Hx Hypercholesterolemia, Hx Hypertension Pulmonary Medical History: Reports: None EENT Medical History: Reports: None Neurological Medical History: Reports: None Endocrine Medical History: Reports: Hx Diabetes Mellitus Type 2 Renal/ Medical History: Reports: Hx Renal Insufficiency Malignancy Medical History: Reports: None GI Medical History: Reports: Hx Colonoscopy Musculoskeltal Medical History: Reports Hx Arthritis, Reports Hx Musculoskeletal Trauma Skin Medical History: Reports None Psychiatric Medical History: Reports: None Traumatic Medical History: Reports: Hx Fractures Infectious Medical History: Reports: None Past Surgical History: Reports: Hx Cardiac Catheterization, Hx Cholecystectomy, Hx Coronary Stent, Hx Hysterectomy - Immunizations Immunizations up to date: Yes History of Pneumococcal Vaccine: Yes - 2016 History of Influenza Vaccine for 08/2019 - 01/2020 Season: Yes - August 26, 2020 Doctor's Discharge - Discharge Referrals: KERRI BURRIS PA-C [Primary Care Provider] - Follow up as needed
[2020-09-22 18:58] LABS: ABSOLUTE BASOPHILS # (AUTO) 0.1 10^3/uL (0.0-0.2); ABSOLUTE EOSINOPHILS # (AUTO) 0.1 10^3/uL (0.0-0.6); ABSOLUTE LYMPHOCYTES (AUTO) 2.1 10^3/uL (0.5-4.7); ABSOLUTE MONOCYTES (AUTO) 1.1 10^3/uL (0.1-1.4); ABSOLUTE NEUT (AUTO) 7.6 10^3/uL (1.7-8.2); BASOPHILS % (AUTO) 0.9 % (0-2); EOSINOPHILS % (AUTO) 1.2 % (0-6); HEMATOCRIT 38.3 % (36.0-47.0); HEMOGLOBIN 13.1 g/dL (12.0-15.5); LYMPHOCYTES % (AUTO) 18.8 % (13-45); MEAN CORPUSCULAR HEMOGLOBIN 28.3 pg (27.0-33.4); MEAN CORPUSCULAR HGB CONC 34.1 g/dL (32.0-36.0); MEAN CORPUSCULAR VOLUME 83 fl (80-97); MONOCYTES % (AUTO) 10.2 % (3-13); PLATELET COUNT 254 10^3/uL (150-450); RED BLOOD COUNT 4.63 10^6/uL (3.72-5.28); RED CELL DISTRIBUTION WIDTH 15.3 % (11.5-14.0); SEGMENTED NEUTROPHILS % (AUTO) 68.9 % (42-78); TOTAL CELLS COUNTED % (AUTO) 100 %
[2020-09-22 19:18] LABS: ALBUMIN 3.6 g/dL (3.5-5.0); ALKALINE PHOSPHATASE 145 U/L (38-126); ANION GAP 10 (5-19); ASPARTATE AMINO TRANSFERASE 23 U/L (14-36); BILIRUBIN,DIRECT 0.2 mg/dL (0.0-0.4); BILIRUBIN,TOTAL 0.5 mg/dL (0.2-1.3); BLOOD UREA NITROGEN 39 mg/dL (7-20); CALCIUM 9.2 mg/dL (8.4-10.2); CARBON DIOXIDE 22 mmol/L (22-30); CHLORIDE 95 mmol/L (98-107); GLUCOSE 208 mg/dL (75-110); PHOSPHORUS 4.5 mg/dL (2.5-4.5); POTASSIUM 4.9 mmol/L (3.6-5.0); TOTAL PROTEIN 6.3 g/dL (6.3-8.2)
[2020-09-22] MEDS ORDERED: NORMAL SALINE 1000 ML 1,000 ML IV ONE (20:33)
--- NOTE | 2020-09-22 20:35 | ER Document Report ---
ED General - General Chief Complaint: Abnormal Lab Results Stated Complaint: ABNORMAL LABS Time Seen by Provider: 09/22/20 17:55 Primary Care Provider: KERRI BURRIS PA-C [Primary Care Provider] - Follow up as needed Mode of Arrival: Wheelchair Information source: Patient TRAVEL OUTSIDE OF THE [place] IN LAST 30 DAYS: No - HPI Notes: Patient is a 75-year-old female with a history of DM II and renal insufficiency who presents for abnormal lab values. Patient states she had lab work done at her primary care office and was notified that she was hyponatremic and hyperkalemic with an elevated creatinine. She was advised to come into the emergency department for further evaluation. She reports feeling increased fatigue and weakness over the past 2 weeks. She reports a good balanced diet and normal fluid intake. She had a recent admission at the end of July for a complicated UTI. Patient denies chest pain, shortness of breath, fever, abdominal pain, nausea, vomiting, diarrhea, and dysuria. Patient reports recent falls over the last couple weeks. She attributes this to her knee osteoarthritis but wonders if it could be related to her abnormal electrolytes. She currently has home health coming to her house regularly for PT and to work on balance to prevent future falls. - Related Data Allergies/Adverse Reactions: atenolol Allergy (Verified 06/12/18 07:14) Home Medications: Furosemide. Glipizide. Januvia. Levaquin. Levemir. Me tropolol. Nerontin. Nitroglyceride. Norvasc. Novolog. Omeprazole. Ondasteron. Plavix. Prednisone. Sertraline. Shingrix. Simvastatin. Telmisartan. Tramadol. Zetia Past Medical History - General Information source: Patient - Social History Smoking Status: Never Smoker Cigarette use (# per day): No Frequency of alcohol use: None Drug Abuse: None Lives with: Family Family History: Reviewed & Not Pertinent - Past Medical History Cardiac Medical History: Reports: Hx Coronary Artery Disease, Hx Hypercholesterolemia, Hx Hypertension Pulmonary Medical History: Reports: None EENT Medical History: Reports: None Neurological Medical History: Reports: None Endocrine Medical History: Reports: Hx Diabetes Mellitus Type 2 Renal/ Medical History: Reports: Hx Renal Insufficiency Malignancy Medical History: Reports: None GI Medical History: Reports: Hx Colonoscopy Musculoskeletal Medical History: Reports Hx Arthritis, Reports Hx Musculoskeletal Trauma Skin Medical History: Reports None Psychiatric Medical History: Reports: None Traumatic Medical History: Reports: Hx Fractures Infectious Medical History: Reports: None Past Surgical History: Reports: Hx Cardiac Catheterization, Hx Cholecystectomy, Hx Coronary Stent, Hx Hysterectomy - Immunizations Immunizations up to date: Yes History of Pneumococcal Vaccine: Yes - 2016 Review of Systems - Review of Systems Constitutional: See HPI EENT: No symptoms reported Cardiovascular: No symptoms reported Respiratory: No symptoms reported Gastrointestinal: No symptoms reported Genitourinary: No symptoms reported Female Genitourinary: No symptoms reported Musculoskeletal: No symptoms reported Skin: No symptoms reported Hematologic/Lymphatic: No symptoms reported Neurological/Psychological: No symptoms reported Physical Exam - Vital signs Vitals: Temp Pulse Resp BP Pulse Ox 98.4 F 57 L 18 148/66 H 97 09/22/20 17:58 09/22/20 17:58 09/22/20 17:58 09/22/20 17:58 09/22/20 17:58 - Notes Notes: PHYSICAL EXAMINATION: VITALS: Vitals reviewed and within normal limits. GENERAL: Well-appearing, well-nourished and in no acute distress. HEAD: Atraumatic, normocephalic. EYES: Pupils equal, round, and reactive to light, extraocular movements intact, sclera anicteric, conjunctiva are normal. ENT: Nares patent. Moist mucous membranes. LUNGS: Breath sounds clear to auscultation bilaterally and equal. No wheezes, rales, or rhonchi. HEART: Regular, rate, and rhythm without murmurs. ABDOMEN: Soft, nontender, normoactive bowel sounds. No guarding, no rebound. No masses appreciated. EXTREMITIES: Normal range of motion, no pitting or edema. No cyanosis. NEUROLOGICAL: No focal neurological deficits. Moves all extremities spontaneously and on command. PSYCH: Normal mood, normal affect. SKIN: Warm, Dry, normal turgor, no rashes or lesions noted. Course - Re-evaluation Re-evalutation: Patient is a 75-year female with a history of DM II and renal insufficiency who presents for abnormal lab work. She was notified by her primary care this ev ening that she is hyponatremic and hyperkalemic with an elevated creatinine. Patient reports weakness and fatigue for the past 2 weeks. Vital signs are within normal limits. On exam, lungs are clear to auscultation bilaterally, heart rate and rhythm regular and 5 out of 5 strength of all extremities. WBC is mildly elevated at 11.0 but the remaining values of the CBC are unremarkable and within normal limits. CMP shows a sodium 127.3 and a potassium of 4.9 with a glucose of 208. Sodium corrected to 129 due to factitious sodium with hyperglycemia. Creatinine elevated at 2.32 with an elevated BUN of 39. Alk phos is also elevated at 145. Magnesium is normal at 2.0 and phosphorus is norm al at 4.5. EKG shows normal sinus rhythm with no ST elevations or peak T waves. 1L of normal saline and urinalysis ordered. Will reassess the patient once the fluids have been given. 09/22/20 23:11 UA shows elevated protein >500, glucose of 50 and moderate leukocyte esterase. WBC 9. Patient denies dysuria, hematuria and urinary frequency. She states she was diagnosed with a UTI and started on antibiotics one week ago. Urine culture ordered. Patient is feeling better after 1L of fluids. Her presentation and workup are consistent with hyponatremia but not dangerously low. I feel the patient is safe for discharge and patient would like to go home. Return precautions and follow up instructions given. Patient understands and is in agreement with plan. - Vital Signs Vital signs: Temp Pulse Resp BP Pulse Ox 97.7 F 57 L 30 H 173/55 H 96 09/22/20 23:01 09/22/20 17:58 09/22/20 22:00 09/22/20 23:01 09/22/20 23:01 - Laboratory Result Diagrams: 09/22/20 18:40 09/22/20 18:40 Laboratory results interpreted by me: 09/22/20 09/22/20 09/22/20 18:40 18:40 21:30 WBC 11.0 H RDW 15.3 H Sodium 127.3 L Chloride 95 L BUN 39 H Creatinine 2.32 H Est GFR ( Amer) 25 L Est GFR (MDRD) Non-Af 20 L Glucose 208 H Alkaline Phosphatase 145 H Urine Protein >=500 H Urine Glucose (UA) 50 H Ur Leukocyte Esterase MODERATE H - EKG Interpretation by Me Additional EKG results interpreted by me: Sinus rhythm with a rate of 60. QTc 416. Normal axis. No T wave inversions or ST segment changes in consecutive leads. Discharge - Discharge Clinical Impression: Abnormal laboratory test, Hyponatremia, Weakness Fatigue Qualifiers: Fatigue type: unspecified Qualified Code(s): R53.83 - Other fatigue Condition: Stable Disposition: HOME, SELF-CARE Additional Instructions: Hyponatremia You have an abnormally low level of serum sodium, called hyponatremia. Low serum sodium may cause weakness, fatigue, confusion, or even seizures. Usually, low sodium is due to taking diuretics (water pills), combined with drinking too much water. It can also be due to excessive vomiting or diarrhea. If no obvious cause is evident, further evaluation will be necessary. If the hyponatremia results from taking diuretics, it's treated by restricting the amount of water you can drink. If it's due to vomiting and diarrhea, it's treated by drinking liberal amounts of rehydration solution (for example Lytren or Pedialyte). A follow-up blood test is often done to see that the sodium is returning to normal. Call the physician if you have severe weakness, muscle twitching or cramping, palpitations (pounding or irregular heartbeat), confusion, headache, seizures, or any other new or alarming symptoms. Referrals: KERRI BURRIS PA-C [Primary Care Provider] - Follow up as needed
[2020-09-22 21:57] LABS: APPEARANCE,URINE CLEAR; BILIRUBIN,URINE NEGATIVE (NEGATIVE); COLOR,URINE STRAW; GLUCOSE, URINE 50 mg/dL (NEGATIVE); KETONES,URINE NEGATIVE (NEGATIVE); LEUKOCYTE ESTERASE,URINE MODERATE (NEGATIVE); NITRITE,URINE NEGATIVE (NEGATIVE); PROTEIN,URINE >=500 mg/dL (NEGATIVE); URINE SPECIFIC GRAVITY 1.007; UROBILINOGEN,URINE NEGATIVE mg/dL (<2.0)
[2020-09-22 23:44] VITALS: BP 173/55
--- NOTE | 2020-09-23 08:48 | EKG REPORT ---
SEVERITY:- BORDERLINE ECG - SINUS RHYTHM BORDERLINE INFERIOR Q WAVES : Confirmed by: Alexsander Lind MD 23-Sep-2020 08:47:17
== END 2020-09-22 23:45 | disposition home or self-care (01) ==
LOC: ER 17:43
DX: E87.1 Hypo-osmolality and hyponatremia (principal); E11.65 Type 2 diabetes mellitus with hyperglycemia; R74.01 Elevation of levels of liver transaminase levels; N39.0 Urinary tract infection, site not specified; R53.1 Weakness; R53.83 Other fatigue; I25.10 Atherosclerotic heart disease of native coronary artery without angina pectoris; I10 Essential (primary) hypertension; E78.00 Pure hypercholesterolemia, unspecified; M19.90 Unspecified osteoarthritis, unspecified site; Z79.899 Other long term (current) drug therapy; Z79.4 Long term (current) use of insulin; Z79.02 Long term (current) use of antithrombotics/antiplatelets; Z79.52 Long term (current) use of systemic steroids; Z95.5 Presence of coronary angioplasty implant and graft; Z79.2 Long term (current) use of antibiotics
CPT/HCPCS: 93005; 99284; 96360; 36415; 87086; 83735; 84100; 85025; 80053; 81001; 93010; J7030